=== PATIENT | female | born 1935 | race Caucasian/White ===

== ENCOUNTER → 2017-10-05 09:14 | Outpatient (CLI) | payer MEDICARE, OTHER, SELFPAY ==
--- NOTE | 2017-10-05 09:18 | MR_ITS ---
MR lumbar spine wo con, MR 3-d myelogram/MRCP HISTORY: Low back pain, right-sided leg pain, buttock pain on the right and groin pain ITS.REASON: ACUTE RIGHT-SIDED LOW BACK PAIN, WITH RIGHT SIDE SCIATICA ORDERING PHYSICIAN: Moncho Mims MD PATIENT AGE: 82 years Comparison: None TECHNIQUE: Standard multiplanar multiecho sequences are performed without contrast. 3-D MIP and myelographic images are also rendered and reviewed FINDINGS: The spinal cord ends at the T12-L1 level. A T1 and T2 hyperintense lesion is present involving the T12 vertebral body consistent with an incidental hemangioma. T12-L1: Unremarkable. L1-L2: Degenerative disc disease with minimal concentric bulging disc and mild facet and ligamentum flavum hypertrophy with mild bilateral foraminal narrowing. L2-L3: Bulging disc with moderate facet and ligamentum flavum hypertrophy with moderate bilateral lateral recess narrowing and moderate bilateral foraminal narrowing. Type II endplate changes. L3-L4: Degenerative disc disease with mild concentric bulging disc with mild to moderate facet and ligamentum flavum hypertrophy and mild bilateral lateral recess and foraminal narrowing. L4-5: There is a moderate sized right paracentral disc herniation with superior extrusion of the disc. The superior extruded portion of the disc measures 2 cm and lies along the posterior right paracentral aspect of the L4 vertebral body. There is moderate compression upon the L4 nerve root as well as compression upon the right L5 nerve root with moderate to severe right-sided foraminal narrowing. There is associated bulging disc at this level with mild facet and ligamentum hypertrophy L5-S1: Mild concentric bulging disc along with mild facet and ligamentum hypertrophy. Incidental note is a 2.3 cm cystic lesion in the right hepatic lobe IMPRESSION: 1. Moderate-sized right paracentral disc herniation with superior extrusion at L4-L5 compressing the right L4 and L5 nerve roots 2. Multilevel degenerative disc disease with bulging disc along with facet and ligamentum hypertrophy as detailed above. Please see above for detailed description at each level
== END ==
PROVIDERS: Family Provider Family Medicine; PCP Family Medicine; Visit Provider Family Medicine
DX: M54.41 Lumbago with sciatica, right side (principal)
CPT/HCPCS: 72148; 76376

== ENCOUNTER → 2017-11-20 08:52 | Outpatient (POV) | payer MEDICARE, OTHER, SELFPAY ==
[2017-11-20 09:19] VITALS: BP 158/75; PULSE 82; RESP 18; O2SAT 98
--- NOTE | 2017-11-20 12:07 | HMH.PMCON ---
Assessment and Plan (1) Degenerative disc disease Current visit: Yes Status: Chronic Qualifiers: Spinal region: lumbar Qualified Code(s): M51.36 - Other intervertebral disc degeneration, lumbar region Category: Medical - Assessment and plan all Dx Assessment and Plan for all problems:: I discussed with the patient her options. Patient would like to finish physical therapy before deciding her next step. I believe that this is meza. I discussed the patient that if she wants to have an epidural injection she would need to come off of her blood thinner. Patient is going to call the office and let us know how she would like to proceed with her care. This note was dictated using voice recognition software and may contain errors or omissions HPI - Data of Consult Consult date: 11/20/17 Requesting Physician: Maribel Galindo APRN Primary Care Provider: Moncho Mims MD Family Provider: Moncho Mims MD - Consult Narrative Reason for consult: Back pain History of present illness: Ms. Silva is a 82 year old female who presents today for consultation in regards to back pain and right sciatic nerve pain. Patient states that all activity increases her pain will physical therapy heat and ibuprofen decrease it. Patient is currently in physical therapy program and states it is helping much. Patient rates her pain a 7 out of 10. Patient was lifting and had sudden onset of pain. MRI does show disc bulge and herniation along with some nerve impingement. Patient has not been seen by neurosurgeon. Patient and I had a discussion in regards to our options as far as treatment. Patient and I discussed referral to neurosurgeon along with potential epidural steroid injections. CC: Maribel Galindo APRN [facility] History I have reviewed the patient's past medical history: Yes Medical History: Denies:: Diabetes Mellitus Type 2 Other Medical History: Reports: Arthritis Laterality Cases: Left: Arthroscopy Knee Other Surgeries: Yes: Hysterectomy-Total - *Social History Educational Level: Completed College Smoking Status: Never smoker Alcohol Intake: never Occupational Status: retired Housing: house Household Members: children - Psychiatric History Expresses thoughts of harming self/others: None Suicide Plan Description: No Plan *Family Hx:: Unable to obtain Review of Systems - Review of Systems ROS General: no recent weight change, no fever, no sleep disturbances Respiratory: no cough, no shortness of air, no recurring pulmonary infections Cardiovascular/Peripheral Vascular: No chest pain, No palpitations, no edema, no shortness of breath. Gastrointestinal: no incontinence, normal bowel movements reported Genitourinary: no incontinence Musculoskeletal: Back pain, leg pain Psychiatric: normal mood/ affect Neurological: [denies weakness in extremities], [denies balance issues] Meds Home Medications Medication Instructions Recorded Confirmed Type Aspirin [Aspirin 81mg chewable 81 mg PO DAILY 09/26/17 09/26/17 History tab] Atorvastatin Calcium [Atorvastatin 40 mg PO HS 09/26/17 09/26/17 History 40mg Tab] Citalopram Hydrobromide 20 mg PO DAILY 09/26/17 09/26/17 History [Citalopram HBr] Gabapentin [Gabapentin 300mg Cap] 300 mg PO TID 09/26/17 09/26/17 History Rivaroxaban [Xarelto 10mg tablet] 20 mg PO HS 09/26/17 09/26/17 History dilTIAZem HCl [Diltiazem 240mg 240 mg PO DAILY 09/26/17 09/26/17 History 24Hr ER Cap] hydroCHLOROthiazide [HCTZ 12.5mg 12.5 mg PO DAILY 09/26/17 09/26/17 History cap] Allergies Allergy/AdvReac Type Severity Reaction Status Date / Time [facility]su[facility]atin [[facility] Allergy Unknown Verified 09/26/17 13:17 Objective Vital signs: Pulse Resp BP Pulse Ox 82 18 158/75 98 11/20/17 09:19 11/20/17 09:19 11/20/17 09:19 11/20/17 09:19 Narrative: Physical Exam General: Alert and oriented x3, no acute
--- NOTE | 2017-11-20 12:10 | P.CONS_ITS ---
Assessment and Plan (1) Degenerative disc disease Current visit: Yes Status: Chronic Qualifiers: Spinal region: lumbar Qualified Code(s): M51.36 - Other intervertebral disc degeneration, lumbar region Category: Medical - Assessment and plan all Dx Assessment and Plan for all problems:: I discussed with the patient her options. Patient would like to finish physical therapy before deciding her next step. I believe that this is meza. I discussed the patient that if she wants to have an epidural injection she would need to come off of her blood thinner. Patient is going to call the office and let us know how she would like to proceed with her care. This note was dictated using voice recognition software and may contain errors or omissions HPI - Data of Consult Consult date: 11/20/17 Requesting Physician: Maribel Galindo APRN Primary Care Provider: Moncho Mims MD Family Provider: Moncho Mims MD - Consult Narrative Reason for consult: Back pain History of present illness: Ms. Silva is a 82 year old female who presents today for consultation in regards to back pain and right sciatic nerve pain. Patient states that all activity increases her pain will physical therapy heat and ibuprofen decrease it. Patient is currently in physical therapy program and states it is helping much. Patient rates her pain a 7 out of 10. Patient was lifting and had sudden onset of pain. MRI does show disc bulge and herniation along with some nerve impingement. Patient has not been seen by neurosurgeon. Patient and I had a discussion in regards to our options as far as treatment. Patient and I discussed referral to neurosurgeon along with potential epidural steroid injections. CC: Maribel Galindo APRN [facility] History I have reviewed the patient's past medical history: Yes Medical History: Denies:: Diabetes Mellitus Type 2 Other Medical History: Reports: Arthritis Laterality Cases: Left: Arthroscopy Knee Other Surgeries: Yes: Hysterectomy-Total - *Social History Educational Level: Completed College Smoking Status: Never smoker Alcohol Intake: never Occupational Status: retired Housing: house Household Members: children - Psychiatric History Expresses thoughts of harming self/others: None Suicide Plan Description: No Plan *Family Hx:: Unable to obtain Review of Systems - Review of Systems ROS General: no recent weight change, no fever, no sleep disturbances Respiratory: no cough, no shortness of air, no recurring pulmonary infections Cardiovascular/Peripheral Vascular: No chest pain, No palpitations, no edema, no shortness of breath. Gastrointestinal: no incontinence, normal bowel movements reported Genitourinary: no incontinence Musculoskeletal: Back pain, leg pain Psychiatric: normal mood/ affect Neurological: [denies weakness in extremities], [denies balance issues] Meds Home Medications Medication Instructions Recorded Confirmed Type Aspirin [Aspirin 81mg chewable 81 mg PO DAILY 09/26/17 09/26/17 History tab] Atorvastatin Calcium [Atorvastatin 40 mg PO HS 09/26/17 09/26/17 History 40mg Tab] Citalopram Hydrobromide 20 mg PO DAILY 09/26/17 09/26/17 History [Citalopram HBr] Gabapentin [Gabapentin 300mg Cap] 300 mg PO TID 09/26/17 09/26/17 History Rivaroxaban [Xarelto 10mg tablet] 20 mg PO HS 09/26/17 09/26/17 History dilTIAZem HCl [Diltiaz
== END ==
PROVIDERS: Family Provider Family Medicine; PCP Family Medicine; Visit Provider Clinical Nurse Specialist Family Health
DX: M51.36 Other intervertebral disc degeneration, lumbar region (principal)
CPT/HCPCS: 99202

== ENCOUNTER 2018-12-12 06:36 | Observation (INO) ==
--- NOTE | 2018-12-12 07:04 | Emergency Department Note ---
ED Disposition Clinical Impression: Unstable angina pectoris Disposition: Admitted as Observation Condition on Discharge: Good Referrals: Moncho Mims MD [Primary Care Provider] - - Critical Care Critical Care Time: No Attestation: On 12/12/18, the high probability of a clinically significant, sudden or life threatening deterioration of the following system(s) required my full and direct attention, intervention and personal management. The time I documented below is in addition to time spent performing reported procedures but includes the following listed in this critical care notation. Medical Decision Making - Medical Records Medical records reviewed: Yes: I reviewed the patient's medical records. - Josh Inquiry Pt receiving controlled substance: No Vital Signs: 12/12/18 06:38 12/12/18 07:32 12/12/18 07:37 Temperature 98.2 F Temperature Source Oral Pulse Rate [Right Radial] 85 89 83 Respiratory Rate 22 Blood Pressure [Right Arm] 156/82 H 151/65 H 133/63 Blood Pressure Mean [Right Arm] 106 93 86 Blood Pressure Source [Right Arm] Automatic Cuff Blood Pressure Position [Right Arm] Sitting Sitting 02 Sat by Pulse Oximetry 97 97 Oxygen Delivery Method Room Air Room Air 12/12/18 09:30 Temperature Temperature Source Pulse Rate [Right Radial] 84 Respiratory Rate 20 Blood Pressure [Right Arm] 156/73 H Blood Pressure Mean [Right Arm] 100 Blood Pressure Source [Right Arm] Automatic Cuff Blood Pressure Position [Right Arm] Supine 02 Sat by Pulse Oximetry 98 Oxygen Delivery Method Room Air - Lab Data Lab results reviewed: Yes: I reviewed the patient's lab results. Lab Results 12/12/18 06:40: WBC 9.1, RBC 4.36, Hgb 12.6, Hct 40.2, MCV 92.2, MCH 28.8, MCHC 31.3 L, RDW 13.9, Plt Count 398, MPV 7.3 L, Neut % (Auto) 63.3, Lymph % (Auto) 31.0, [place] % (Auto) 5.0, Eos % (Auto) 0.5, Baso % (Auto) 0.2, Neut # (Auto) 5.8, Lymph # (Auto) 2.8, [place] # (Auto) 0.5, Eos # (Auto) 0.1, Baso # (Auto) 0.0 12/12/18 06:40: Sodium 131 L, Potassium 3.8, Chloride 94 L, Carbon Dioxide 26, Anion Gap 14.8, BUN 11, Creatinine 1.14 H, Estimated Creat Clear 43, Estimated GFR 45 L, Est GFR ( Amer) 55 L, Glucose 117 H, Calcium 9.7, Troponin I < 0.02 Result diagrams: 12/12/18 06:40 12/12/18 06:40 Orders (Tests/Meds): ED MEDICATIONS Generic Name Dose Route Start Last Admin Trade Name Freq PRN Reason Stop Dose Admin Nitroglycerin 0.4 mg 12/12/18 07:34 12/12/18 07:38 Nitrostat 0.4mg Sl Tablet SL 01/11/19 07:33 0.4 mg Q5MINP PRN Administration Chest Pain Discontinued Medications Generic Name Dose Route Start Last Admin Trade Name Freq PRN Reason Stop Dose Admin Aspirin 324 mg 12/12/18 07:01 12/12/18 07:03 Aspirin 81mg Chewable Tablet PO 12/12/18 07:02 324 mg ONCE ONE Administration Ondansetron HCl 4 mg 12/12/18 08:56 12/12/18 08:57 Zofran 4mg/2ml Vial IV 12/12/18 08:57 4 mg ONCE ONE Administration - Radiology Data #1 Image(s): Chest Image Reviewed: Yes I reviewed the patient's radiology image Preliminary Findings: Normal/NAD - ECG Data Tracing #1 Normal Sinus Rhythm: Yes Ischemic changes: non-specific ST-T wave changes - Physician Consults Physician Consulted: germain Reason -: Admission Additional Consult: abhijit Reason -: Pt condition Chest Pain HPI - General Chief Complaint: Chest Pain Stated Complaint: CP Time Seen by Provider: 12/12/18 06:45 Mode of Arrival: Ambulatory Source of Information: Patient, Medical Record Limitations: No Limitations Description of Symptoms (Recalled from ER Triage Doc. by RN): PT C/O A BURNING IN HER LT CHEST THAT EXTENDS INTO HER LT UPPER ARM THAT WOKE HER UP AT 0500. PT ADVISES THAT SHE HAS HAD A FEW EPISODES SIMILAR TO THIS LATELY AND THAT SHE BELIEVES THEY MAY BE ANXIETY RELATED BUT SHE WANTED TO GET CHECKED OUT TO BE CERTAIN. - History of Present Illness HPI narrative: onset of lt ant chest pain this am - burning quality with rad to lt upper ext MD complaint: chest pain indicative of cardiac Onset (ago): hour(s) Duration: intermittent Activity at onset: during rest Pain location: left chest Severity: moderate Quality: other (burning) Associated symptoms: nausea Treatments prior to or on arrival for Cardiac Chest Pain: none - KASSIDY Score for Non-Stemi Age of Patient: 80-89 years old Heart Rate: 70-89 bpm Systolic Blood Pressure: 140-159 mmHg Serum Creatinine: 0.80-1.19 mg/dl CHF [place] Class: I-No CHF Other Risk Factors: None Non-Stemi Risk Score: 131 - Related Data On Oral Contraceptives: No Home Medications Medication Instructions Recorded Confirmed Atorvastatin Calcium [Atorvastatin 40 mg PO HS 09/26/17 12/12/18 40mg Tab] Citalopram Hydrobromide 40 mg PO DAILY 09/26/17 12/12/18 [Citalopram HBr] Gabapentin [Gabapentin 300mg Cap] 300 mg PO TID 09/26/17 12/12/18 Rivaroxaban [Xarelto 10mg tablet] 20 mg PO HS 09/26/17 12/12/18 dilTIAZem HCl [Diltiazem 240mg 240 mg PO DAILY 09/26/17 12/12/18 24Hr ER Cap] hydroCHLOROthiazide [HCTZ 12.5mg 12.5 mg PO DAILY 09/26/17 12/12/18 cap] Acetaminophen [Tylenol] 325 mg PO DAILY 12/19/17 12/12/18 Alpha Lipoic Acid 200 mg PO DAILY 12/19/17 12/12/18 B Complex C 11/Calcium/Dha/Q10 1 each PO DAILY 12/19/17 12/12/18 [Brain Goboh-Ckd-Gr Q10 Tablet] Cholecalciferol (Vitamin D3) 2,000 unit PO DAILY 12/19/17 12/12/18 [Vitamin D3] Benzonatate [Tessalon [place]le 100mg 100 mg PO TIDP PRN 12/24/17 12/12/18 Cap] Allergies Allergy/AdvReac Type Severity Reaction Status Date / Time rosuvastatin [From [facility]] Allergy Unknown Verified 12/24/17 12:11 [facility] History - Hepatitis A Screen Drug use history?: No High risk sexual behaviors?: No History of sexually transmitted infection?: No Currently employed?: No Childcare worker?: No Do you have indoor plumbing?: Yes Do you have electricity?: Yes Attestation statement:: This patient has been screened for Hepatitis A risk factors. I have reviewed the patient's past medical history: Yes Medical History: Reports:: Hyperlipidemia, Hypertension Denies:: Diabetes Mellitus Type 1, Diabetes Mellitus Type 2, Internal Pacemaker, Lung Disease, Seizures Other Medical History: Reports: Arthritis Laterality Cases: Left: Arthroscopy Knee Other Surgeries: Yes: Cardiac Catheterization, Hysterectomy-Total. No: Pacemaker - Social History Smoking Status: Never smoker Alcohol Intake: never Occupational Status: retired Housing: house Household Members: children Family Hx:: Unable to obtain ROS Obtained: Yes All systems reviewed & no additional complaints - Constitutional Constitutional: Denies fever(s) - Eyes Eyes: Denies change in vision - ENT Ears, Nose, Mouth, and Throat: Denies sore throat - Cardiovascular Cardiovascular: Reports chest pain, Denies dyspnea - Respiratory Respiratory: No cough - Gastrointestinal Gastrointestingal: Denies: abdominal pain - Genitourinary Female Genitourinary: Denies hematuria - Musculoskeletal Musculoskeletal: Denies joint pain - Integumentary/Breasts Skin/Breast: Denies rash - Neurologic Neurologic: Denies seizure-like activity Physical Exam - General General appearance: alert - Head Head exam: normocephalic - Eye Eye exam: Present: PERRL, EOMI. Absent: scleral icterus - ENT ENT exam: Present: mucous membranes dry - Neck Neck exam: Present: trachea midline - Respiratory Respiratory exam: Present: normal lung sounds bilaterally. Absent: respiratory distress - Cardiovascular Cardiovascular exam: Present: regular rate, systolic murmur, +S4 - Abdominal Exam Abdominal exam: Present: soft - Extremities Exam Extremities exam: Present: full ROM. Absent: calf tenderness - Neurological Exam Neurological exam: Present: alert, oriented X3, CN II-XII intact - Psychiatric Psychiatric exam: Present: normal affect - Skin Skin exam: Absent: rash
[2018-12-12 07:16] LABS: Basophils % 0.2 % (0.1-2.0); Eosinophils # 0.1 K/mm3 (0.0-0.4); Eosinophils % 0.5 % (0.1-12.0); Hematocrit 40.2 % (37.0-47.0); Hemoglobin 12.6 g/dL (12.2-16.2); Lymphocytes # 2.8 K/mm3 (0.7-4.5); Mean Corpuscular HGB Conc 31.3 g/dL (31.8-35.4); Mean Corpuscular Volume 92.2 fl (81-99); Mean Platelet Volume 7.3 fl (7.4-10.4); Monocytes # 0.5 K/mm3 (0.1-1.0); Neutrophils # 5.8 K/mm3 (1.8-7.8); Neutrophils % 63.3 % (37.0-80.0); Platelet Count 398 K/mm3 (142-424); Red Blood Count 4.36 M/mm3 (4.20-5.40); Red Cell Distribution Width 13.9 % (11.5-17.5); White Blood Count 9.1 K/mm3 (4.8-10.8)
[2018-12-12 07:23] LABS: Anion Gap 14.8 mEq/L (5-15); Blood Urea Nitrogen 11 mg/dL (7-18); Calcium 9.7 mg/dL (8.5-10.1); Carbon Dioxide 26 mmol/L (21.0-32.0); Chloride 94 mmol/L (98-107); Glucose 117 mg/dL (74-106); Sodium 131 mmol/L (136-145)
--- NOTE | 2018-12-12 08:45 | Consult Report ---
History of Present Illness Consult date: 12/12/18 Requesting physician: Moncho Mims Consult reason: chest pain Chief complaint: chest pain Additional Medical History:: 1. Hypertension A. Echo, 03/2016, 2D 1. Left atrium is qualitatively mildly enlarged, left ventricle is normal size, there is mild concentric left ventricular hypertrophy present, visually estimated ejection fraction 55% with no obvious regional wall motion ab normality. 2. The right-sided chambers are normal size and contractility. 3. The aortic valve is minimally thickened and calcified leaflet continue to display good mobility there is no aortic stenosis. 4. The mitral valve has mitral calcification there is no mitral stenosis. 5. The tricuspid valve restructure normal. 6. The pulmonic valve not well visualized. 7. No significant pericardial effusion noted. DOPPLER INTERROGATION: 1. The aortic outflow velocities within normal range, there is no aortic stenosis, there is mild aortic insufficiency present. 2. The mitral inflow velocity within normal range, there is no mitral stenosis, there is mild mitral regurgitation. 3. There is mild tricuspid regurgitation noted, tricuspid regurgitant jet velocity insufficient for acquisition of the right ventricular systolic pressure. CONCLUSION: 1. Mildly enlarged left atrium, normal left ventricular size, mild concentric left ventricular hypertrophy, visually estimated ejection fraction 55% with no obvious regional wall motion abnormality. 2. Mild mitral aortic and tricuspid regurgitation 3. No significant pericardial effusion noted 2. Hyperlipidemia 3. Endometrial cancer status post hysterectomy with radiation therapy January 2016-March 2016 4. New-onset atrial fibrillation, 04/02/2016, spontaneous conversion to NSR on diltiazem gtt to PO A. Xarelto 5. Lower extremity neuropathy A. [place] [facility], 2018, 1. Moderate-sized right paracentral disc herniation with superior extrusion at L4-L5 compressing the right L4 and L5 nerve roots 2. Multilevel degenerative disc disease with bulging disc along with facet and ligamentum hypertrophy as detailed above. Please see above for detailed description at each level 6. coronary artery calcification noted on CT, 09/2017 A. [facility], 2010, [facility], no need for intervention at that time per patient, no records available for review History of present illness: 83-year-old white female seen in the ER for complaint of left-sided chest discomfort with radiation to the left arm. She describes the discomfort as a burning sensation that has been intermittently occurring over the last 2 months. It may last up to hours at a time and resolve spontaneously. She denies any exertional component to it and cannot think of any aggravating or alleviating f actors. She does associate some nausea with it but denies rochelle chest pain or pressure. She denies any diaphoretic symptoms or vomiting. She has recently been treated for UTI with sulfa drugs and states that she may not drinking of water with taking the pills. Patient does relate some indigestion discomfort with activity and resolves with rest. Patient did receive nitroglycerin in the ER with questionable improvement in symptoms but not resolution. Patient freely admits that she has difficulty remembering the circumstances surrounding the discomfort. This is the second time that the burning type sensation has awoken her from sleep. Due to the severity of the symptoms it prompted visit to the ER today for further evaluation. Initial troponin is normal EKG is sinus rhythm with nonspecific ST-T abnormalities inferiorly consistent with tracing from 2017 Echocardiogram this a.m., preliminary report shows preserved ejection fraction. Patient was last seen by cardiology in 2017 during an episode of atrial fibrillation with a rapid ventricular response which was new onset. She has maintained sinus rhythm on diltiazem and has continued on Xarelto therapy. [facility] History Medical History: Reports:: Hyperlipidemia, Hypertension Denies:: Diabetes Mellitus Type 1, Diabetes Mellitus Type 2, Internal Pacemaker, Lung Disease, Seizures *Have you ever received a pneumonia vaccine?: No *Have you received a flu vaccine this season?: No Other Medical History: Reports: Arthritis Laterality Cases: Left: Arthroscopy Knee Other Surgeries: Yes: Cardiac Catheterization, Hysterectomy-Total. No: Pacemaker - *Social History Smoking Status: Never smoker Alcohol Intake: never *Occupational Status:: retired Housing: house Household Members: children *Travel in the last 8 weeks: None Family Hx:: Unable to obtain Meds Home Medications Medication Instructions Recorded Confirmed Type Atorvastatin Calcium [Atorvastatin 40 mg PO HS 09/26/17 12/12/18 History 40mg Tab] Citalopram Hydrobromide 40 mg PO DAILY 09/26/17 12/12/18 History [Citalopram HBr] Gabapentin [Gabapentin 300mg Cap] 300 mg PO TID 09/26/17 12/12/18 History Rivaroxaban [Xarelto 10mg tablet] 20 mg PO HS 09/26/17 12/12/18 History dilTIAZem HCl [Diltiazem 240mg 240 mg PO DAILY 09/26/17 12/12/18 History 24Hr ER Cap] hydroCHLOROthiazide [HCTZ 12.5mg 12.5 mg PO DAILY 09/26/17 12/12/18 History cap] Acetaminophen [Tylenol] 325 mg PO DAILY 12/19/17 12/12/18 History Alpha Lipoic Acid 200 mg PO DAILY 12/19/17 12/12/18 History B Complex C 11/Calcium/Dha/Q10 1 each PO DAILY 12/19/17 12/12/18 History [Brain [place]-Kez-Ca Q10 Tablet] Cholecalciferol (Vitamin D3) 2,000 unit PO DAILY 12/19/17 12/12/18 History [Vitamin D3] Benzonatate [Tessalon Perle 100mg 100 mg PO TIDP PRN 12/24/17 12/12/18 History Cap] Allergies Allergy/AdvReac Type Severity Reaction Status Date / Time rosuvastatin [From [facility]] Allergy Unknown Verified 12/24/17 12:11 Review of Systems - *Cardiovascular Reports chest pain, Reports shortness of breath with activity - *Respiratory Reports shortness of breath with activity - *Gastrointestinal Reports heartburn, Reports nausea, Denies abdominal pain, Denies vomiting - *Genitourinary Reports blood in urine - *Musculoskeletal Reports back pain, Denies joint pain - *Neurologic Denies dizziness, Denies seizure-like activity, Denies fainting Exam Vital signs and Labs for Last 24 Hours: Temp Pulse Resp BP Pulse Ox 98.2 F 83 22 133/63 97 12/12/18 06:38 12/12/18 07:37 12/12/18 06:38 12/12/18 07:37 12/12/18 07:32 Laboratory Results - last 24 hr 12/12/18 06:40: WBC 9.1, RBC 4.36, Hgb 12.6, Hct 40.2, MCV 92.2, MCH 28.8, MCHC 31.3 L, RDW 13.9, Plt Count 398, MPV 7.3 L, Neut % (Auto) 63.3, Lymph % (Auto) 31.0, [place] % (Auto) 5.0, Eos % (Auto) 0.5, Baso % (Auto) 0.2, Neut # (Auto) 5.8, Lymph # (Auto) 2.8, [place] # (Auto) 0.5, Eos # (Auto) 0.1, Baso # (Auto) 0.0 12/12/18 06:40: Sodium 131 L, Potassium 3.8, Chloride 94 L, Carbon Dioxide 26, Anion Gap 14.8, BUN 11, Creatinine 1.14 H, Estimated Creat Clear 43, Estimated GFR 45 L, Est GFR ( Amer) 55 L, Glucose 117 H, Calcium 9.7, Troponin I < 0.02 I & O for Last 24 hours: Intake & Output 12/09/18 12/10/18 12/11/18 12/12/18 11:59 11:59 11:59 11:59 Weight 162 lb - *Routine HEENT Exam Head: Present: normocephalic Eye: Present: EOMI, PERRL ENT: Present: mucous membranes moist - *Routine Neck Exam Present: supple. Absent: JVD, carotid bruit - *Routine Respiratory Exam Present: CTA bilaterally. Absent: accessory muscle use, rales, rhonchi, wheezes - *Routine Cardiovascular Exam Present: RRR. Absent: murmur, gallop, rubs - *Routine Abdominal Exam Present: soft. Absent: tenderness, distended, guarding - *Routine Extremities Exam Absent: edema, calf tenderness - *Routine Neurological Exam Present: alert, oriented X3, moving all extremities Assessment and Plan (1) Chest pain Current visit: Yes Status: Acute Category: Medical Code(s): R07.9 - Chest pain, unspecified (2) History of atrial fibrillation Current visit: Yes Status: Acute Category: Medical Code(s): Z86.79 - Personal history of other diseases of the circulatory system (3) Hypertension Current visit: Yes Status: Acute Category: Medical Code(s): I10 - Essential (primary) hypertension (4) Hyperlipidemia Current visit: Yes Status: Acute Category: Medical Code(s): E78.5 - Hyperlipidemia, unspecified (5) Coronary artery calcification seen on CAT scan Current visit: Yes Status: Acute Category: Medical Code(s): I25.10 - Atherosclerotic heart disease of [place] coronary artery without angina pectoris (6) CAD (coronary artery disease) Current visit: Yes Status: Acute Category: Medical Code(s): I25.10 - Atherosclerotic heart disease of [place] coronary artery without angina pectoris - Assessment and plan all Dx Assessment and Plan for all problems:: 1. Constellation of chest discomfort symptoms including left-sided burning sensation, left arm discomfort, nausea and indigestion in an advanced age patient with history of hypertension, hyperlipidemia and coronary artery calcification seen on CT scan in 2018 and non-flow limiting CAD on cardiac cath in 2009. Symptoms have been recurrent over the last 2 months and seem to be progressive in nature to the point of waking the patient from sleep (angina pectoris class IV). Recommend admission with plans to proceed with left heart catheterization later today. Patient and daughter agree to proceed in this fashion. Risks, benefits and procedure explained. 2. Continue home meds and add NTG paste.
--- NOTE | 2018-12-12 12:46 | History & Physical Report ---
*Admission Date: 12/12/18 <Izzy Hernández - 12/12/18 12:53> *Chief complaint: left sided breast and chest burning radiating to the left arm <Izzy Hernández - 12/12/18 12:53> *History of present illness: Ms. Silva is an 83-year-old white female who began having left breast and chest burning approx 2 months ago. She states she has the symptoms daily and they are intermittent. She attributed them to anxiety. Last night she woke up and had the same burning pain but it radiated t o her left arm. She decided to present to the ER for evaluation. She states the pain may last up to hours at a time and resolve spontaneously. She denies any exertional component and cannot think of any aggravating or alleviating factors. She does associate some nausea with it but denies rochelle chest pain or pressure. She denies any diaphoresis. She has recently been treated for multiple UTI's and has been on three different antibiotics. The most recent was bactrim. She thought the pain was just due to not drinking enough water when taking the pills. She has had some indigestion since taking antibiotics. She received nitroglycerin in the ER with some improvement in symptoms but not resolution. This is apparently the second time that the burning type sensation has awoken her from sleep. Cardiology was consulted for further evaluation. Her troponins have been normal and her EKG showed sinus rhythm with nonspecific ST-T abnormalities inferiorly. Cardiology ordered an echocardiogram and the preliminary report shows a preserved ejection fraction. They recommended admission and a heart cath. Of note, she has had loose stool for the past few weeks. She is worried it may be due to the antibiotics. <Izzy Hernández - 12/12/18 12:53> [facility] History I have reviewed the patient's past medical history: Yes <Izzy Hernández 12/12/18 12:53> Medical History: Reports:: Atrial Fibrillation, Cancer (endometrial), Dementia, Hyperlipidemia, Hypertension, Renal Disease Denies:: Diabetes Mellitus Type 1, Diabetes Mellitus Type 2, Internal Pacemaker, Lung Disease, Seizures <Izzy Hernández - 12/12/18 12:53> *Have you ever received a pneumonia vaccine?: Yes <Izzy Hernández 12/12/18 12:53> *Have you received a flu vaccine this season?: Yes <Izzy Hernández 12/12/18 12:53> Other Medical History: Reports: Anemia, Arthritis, Cataracts, Glaucoma, Other (Neuropathy, osteopenia, colon polyps, lumbar disc disease) <Izzy Hernández 12/12/18 12:53> Laterality Cases: Left: Arthroscopy Knee, Carpal Tunnel Release <Izzy Hernández 12/12/18 12:53> Other Surgeries: Yes: Appendectomy, Cardiac Catheterization, Cholecystectomy, Colonoscopy, , Dilation and Curettage, Hernia Repair, Hysterectomy- Total, Other (cyst removed from right ovary, lysis of abdominal adhesions, left wrist). No: Pacemaker <Izzy Hernández 12/12/18 12:53> - *Social History Smoking Status: Never smoker <Izzy Hernández 12/12/18 12:53> Alcohol Intake: never <Izzy Hernández 12/12/18 12:53> *Occupational Status:: retired <Izzy Hernández 12/12/18 12:53> Housing: house <zIzy Hernández 12/12/18 12:53> Household Members: children <Izzy Hernández 12/12/18 12:53> *Travel in the last 8 weeks: None <Izyz Hernández 12/12/18 12:53> Family Hx:: Cancer (cervical/uterine), Coronary Artery Disease, Heart Attack <Izzy Hernández 12/12/18 12:53> Review of Systems - Constitutional Denies fatigue, Denies fever(s), Denies weakness <Izzy Hernández 12/12/18 12:53> - Eyes Denies blurry vision, Denies double vision <Izzy Hernández 12/12/18 12:53> - ENT Reports nasal congestion, Denies sore throat <Izzy Hernández 12/12/18 12:53> - *Cardiovascular Reports chest pain, Denies shortness of breath, Denies leg swelling, Denies rapid, pounding, or irregular heartbeat <Izzy Hernández 12/12/18 12:53> - *Respiratory Denies cough, Denies shortness of breath <Izzy Hernández 12/12/18 12:53> - *Gastrointestinal Reports loose stools, Reports nausea, Denies abdominal pain, Denies vomiting <Izzy Hernández - 12/12/18 12:53> - *Genitourinary Denies difficulty urinating, Denies painful urination <Izzy Hernández - 12/12/18 12:53> - *Musculoskeletal Reports joint pain (left arm), Denies muscle weakness <Izzy Hernández - 12/12/18 12:53> - *Neurologic Reports headache(s), Denies dizziness, Denies seizure-like activity, Denies fainting, Denies weakness <Izzy Hernández - 12/12/18 12:53> Meds Home Medications Medication Instructions Recorded Confirmed Type Atorvastatin Calcium [Atorvastatin 40 mg PO HS 09/26/17 12/12/18 History 40mg Tab] Citalopram Hydrobromide 40 mg PO DAILY 09/26/17 12/12/18 History [Citalopram HBr] Gabapentin [Gabapentin 300mg Cap] 300 mg PO TID 09/26/17 12/12/18 History Rivaroxaban [Xarelto 10mg tablet] 20 mg PO HS 09/26/17 12/12/18 History dilTIAZem HCl [Diltiazem 240mg 240 mg PO DAILY 09/26/17 12/12/18 History 24Hr ER Cap] hydroCHLOROthiazide [HCTZ 12.5mg 12.5 mg PO DAILY 09/26/17 12/12/18 History cap] Acetaminophen [Tylenol] 325 mg PO DAILY 12/19/17 12/12/18 History Alpha Lipoic Acid 200 mg PO DAILY 12/19/17 12/12/18 History B Complex C 11/Calcium/Dha/Q10 1 each PO DAILY 12/19/17 12/12/18 History [Brain Pfroq-Gwd-Yu Q10 Tablet] Cholecalciferol (Vitamin D3) 2,000 unit PO DAILY 12/19/17 12/12/18 History [Vitamin D3] Benzonatate [Tessalon Perle 100mg 100 mg PO TIDP PRN 12/24/17 12/12/18 History Cap] <Elise Mimsian - 12/12/18 13:04> Allergies Allergy/AdvReac Type Severity Reaction Status Date / Time rosuvastatin [From [facility]] Allergy Unknown Verified 10/29/18 12:11 <Moncho Mims - 12/12/18 13:04> Exam Vital signs and Labs for Last 24 Hours: Temp Pulse Resp BP Pulse Ox 97.9 F 89 17 158/76 H 95 12/12/18 10:47 12/12/18 10:47 12/12/18 10:47 12/12/18 10:47 12/12/18 10:47 Laboratory Results - last 24 hr 12/12/18 06:40: WBC 9.1, RBC 4.36, Hgb 12.6, Hct 40.2, MCV 92.2, MCH 28.8, MCHC 31.3 L, RDW 13.9, Plt Count 398, MPV 7.3 L, Neut % (Auto) 63.3, Lymph % (Auto) 31.0, [place] % (Auto) 5.0, Eos % (Auto) 0.5, Baso % (Auto) 0.2, Neut # (Auto) 5.8, Lymph # (Auto) 2.8, [place] # (Auto) 0.5, Eos # (Auto) 0.1, Baso # (Auto) 0.0 12/12/18 06:40: Sodium 131 L, Potassium 3.8, Chloride 94 L, Carbon Dioxide 26, Anion Gap 14.8, BUN 11, Creatinine 1.14 H, Estimated Creat Clear 43, Estimated GFR 45 L, Est GFR ( Amer) 55 L, Glucose 117 H, Calcium 9.7, Troponin I < 0.02 <Moncho Mims - 12/12/18 13:04> Temp Pulse Resp BP Pulse Ox 97.9 F 89 17 158/76 H 95 12/12/18 10:47 12/12/18 10:47 12/12/18 10:47 12/12/18 10:47 12/12/18 10:47 Laboratory Results - last 24 hr 12/12/18 06:40: WBC 9.1, RBC 4.36, Hgb 12.6, Hct 40.2, MCV 92.2, MCH 28.8, MCHC 31.3 L, RDW 13.9, Plt Count 398, MPV 7.3 L, Neut % (Auto) 63.3, Lymph % (Auto) 31.0, [place] % (Auto) 5.0, Eos % (Auto) 0.5, Baso % (Auto) 0.2, Neut # (Auto) 5.8, Lymph # (Auto) 2.8, [place] # (Auto) 0.5, Eos # (Auto) 0.1, Baso # (Auto) 0.0 12/12/18 06:40: Sodium 131 L, Potassium 3.8, Chloride 94 L, Carbon Dioxide 26, Anion Gap 14.8, BUN 11, Creatinine 1.14 H, Estimated Creat Clear 43, Estimated GFR 45 L, Est GFR ( Amer) 55 L, Glucose 117 H, Calcium 9.7, Troponin I < 0.02 <EdgarIzzy - 12/12/18 12:53> I & O for Last 24 hours: Intake & Output 12/09/18 12/10/18 12/11/18 12/12/18 23:59 23:59 23:59 23:59 Intake Total 0 / 0 Balance 0 / 0 Weight 159 lb 9 oz <Moncho Mims - 12/12/18 13:04> Intake & Output 12/10/18 12/11/18 12/12/18 12/13/18 11:59 11:59 11:59 11:59 Weight 159 lb 9 oz <Jose JuanurielIzzy - 12/12/18 12:53> - Constitutional no acute distress <EdgarIzzy 12/12/18 12:53> - *Routine HEENT Exam Head: Present: normocephalic <EdgarIzzy - 12/12/18 12:53> Eye: Present: EOMI, PERRL <EdgarIzzy 12/12/18 12:53> ENT: Present: mucous membranes moist <EdgarIzzy - 12/12/18 12:53> - *Routine Neck Exam Present: supple. Absent: lymphadenopathy <EdgarIzzy - 12/12/18 12:53> - *Routine Respiratory Exam Present: CTA bilaterally <EdgarIzzy 12/12/18 12:53> - *Routine Cardiovascular Exam Present: RRR <EdgarIzzy 12/12/18 12:53> - *Routine Abdominal Exam Present: soft, normoactive bowel sounds. Absent: tenderness <EdgarIzzy 12/12/18 12:53> - *Routine Extremities Exam Absent: cyanosis, clubbing, edema <Izzy Hernández - 12/12/18 12:53> - *Routine Skin Exam Present: warm. Absent: rash <Izzy Hernández - 12/12/18 12:53> - *Routine Neurological Exam Present: alert, oriented X3 <Izzy Hernández - 12/12/18 12:53> H&P: Result - Impressions CXR - No change with no acute finding <Izzy Hernández 12/12/18 12:53> Assessment and Plan (1) Chest pain Current visit: Yes Status: Acute Category: Medical Code(s): R07.9 - Chest pain, unspecified (2) History of atrial fibrillation Current visit: Yes Status: Acute Category: Medical Code(s): Z86.79 - Personal history of other diseases of the circulatory system (3) Hypertension Current visit: Yes Status: Acute Category: Medical Code(s): I10 - Essential (primary) hypertension (4) Hyperlipidemia Current visit: Yes Status: Acute Category: Medical Code(s): E78.5 - Hyperlipidemia, unspecified (5) Coronary artery calcification seen on CAT scan Current visit: Yes Status: Acute Category: Medical Code(s): I25.10 - Atherosclerotic heart disease of [place] coronary artery without angina pectoris (6) CAD (coronary artery disease) Current visit: Yes Status: Acute Category: Medical Code(s): I25.10 - Atherosclerotic heart disease of [place] coronary artery without angina pectoris (7) Diarrhea Current visit: Yes Status: Acute Category: Medical Code(s): R19.7 - Diarrhea, unspecified <Moncho Mims - 12/12/18 13:04> (1) Chest pain Current visit: Yes Status: Acute Category: Medical Code(s): R07.9 - Chest pain, unspecified (2) History of atrial fibrillation Current visit: Yes Status: Acute Category: Medical Code(s): Z86.79 - Personal history of other diseases of the circulatory system (3) Hypertension Current visit: Yes Status: Acute Category: Medical Code(s): I10 - Essential (primary) hypertension (4) Hyperlipidemia Current visit: Yes Status: Acute Category: Medical Code(s): E78.5 - Hyperlipidemia, unspecified (5) Coronary artery calcification seen on CAT scan Current visit: Yes Status: Acute Category: Medical Code(s): I25.10 - Atherosclerotic heart disease of [place] coronary artery without angina pectoris (6) CAD (coronary artery disease) Current visit: Yes Status: Acute Category: Medical Code(s): I25.10 - Atherosclerotic heart disease of [place] coronary artery without angina pectoris <Izzy Hernández - 12/12/18 12:37> - Assessment and plan all Dx Assessment and Plan for all problems:: Saw patient, agree with above note. <Moncho Mims - 12/12/18 13:04> Still awaiting official echo report. Patient will have a heart cath this afternoon. Will also get a diarrhea panel d/t her diarrhea. <Izzy Hernández - 12/12/18 12:53>
--- NOTE | 2018-12-12 14:14 | Cardiology Report ---
APPROVED REPORT EXAM: Comprehensive 2D, Doppler, and color-flow Echocardiogram Section Supervisor: Lorri Lozoya, RT(R) Ht: 5 ft 2 in Wt: 162lbs BSA: 1.75 BP: 135/84 mmHg Indications: CP, Murmur 2D Dimensions LVOT 2.10 cm (M/F) 1.5-2.5 M-Mode Dimensions RVDd 1.60 cm (0.9-2.6)LA Diam 3.70 cm (1.9-4.0) LVDd 4.90 cm (3.5-5.7)Ao Diam 2.60 cm (2.0-3.7) LVDs 3.30 cm (3.5-5.7)AV Cusp 2.00 cm (1.5-2.6) IVSd 0.80 cm (0.6-1.1)PWd 0.70 cm (0.6-1.1) EF (Teich) 61.00% FS 32.70% EDV (Teich) 113.00 mLESV (Teich) 44.10 mL LV Diastology E/A Ratio 0.8MED E' 7.51 (< 7 cm/sec) E'/MED E' Ratio12.20 (>14)LAT E' 7.90 (<10 cm/sec) E/LAT E' Ratio 11.60 (>14) Mitral Valve MV E Max Cal. 91.80 (40-130 cm/s)MV A Velocity 122.00 (40-130 cm/s) E/A Ratio 0.80 Left Ventricle Left atrium is mildly enlarged, left ventricle is normal size, mild concentric left ventricular hypertrophy, visually estimated ejection fraction 55% with no regional wall motion abnormality, grade 1 diastolic dysfunction seen with tissue Doppler evidence of raise left atrial pressure. Right Ventricle Right atrium and right ventricular normal size and contractility. Aortic Valve Aortic valve is thickened and calcified leaflet going to display good mobility. Mitral Valve Mitral valve has mild mitral calcification, there is no mitral stenosis, there is mild mitral regurgitation. Tricuspid Valve Tricuspid valve is grossly normal, there is mild tricuspid regurgitation. Tricuspid regurgitation jet velocity is inadequate for calculation of the right ventricular systolic pressure. Pulmonic Valve Pulmonic valve is poorly visualized. Great Vessels Aortic root is normal size. Pericardium No significant pericardial effusion noted. Conclusion 1. Mildly enlarged left atrium, normal left ventricular size, mild concentric left ventricular hypertrophy, visually estimated ejection fraction 55% with no regional wall motion abnormality, grade 1 diastolic dysfunction seen with tissue Doppler evidence of raise left atrial pressure. 2. Mild mitral and tricuspid regurgitation 3. No significant pericardial effusion noted. Electronically signed by : Evens Farrar, 12/12/2018 14:13:38
--- NOTE | 2018-12-12 18:13 | Progress Note ---
Internal Medicine - PN: Subj *Date: 12/12/18 *Time: 18:11 Interval history: Patient had left heart cath today which was basically normal, but did showed minimal non flow limiting CAD. She is anxious to go home. Exam Vital signs and Labs for Last 24 Hours: Temp Pulse Resp BP Pulse Ox 97.9 F 80 17 158/76 H 95 12/12/18 10:47 12/12/18 16:00 12/12/18 10:47 12/12/18 10:47 12/12/18 10:47 Laboratory Results - last 24 hr 12/12/18 06:40: WBC 9.1, RBC 4.36, Hgb 12.6, Hct 40.2, MCV 92.2, MCH 28.8, MCHC 31.3 L, RDW 13.9, Plt Count 398, MPV 7.3 L, Neut % (Auto) 63.3, Lymph % (Auto) 31.0, Bibb % (Auto) 5.0, Eos % (Auto) 0.5, Baso % (Auto) 0.2, Neut # (Auto) 5.8, Lymph # (Auto) 2.8, Bibb # (Auto) 0.5, Eos # (Auto) 0.1, Baso # (Auto) 0.0 12/12/18 06:40: Sodium 131 L, Potassium 3.8, Chloride 94 L, Carbon Dioxide 26, Anion Gap 14.8, BUN 11, Creatinine 1.14 H, Estimated Creat Clear 43, Estimated GFR 45 L, Est GFR ( Amer) 55 L, Glucose 117 H, Calcium 9.7, Troponin I < 0.02 I & O for Last 24 hours: Intake & Output 12/09/18 12/10/18 12/11/18 12/12/18 23:59 23:59 23:59 23:59 Intake Total 240 / 240 Balance 240 / 240 Weight 159 lb 9 oz Assessment and Plan (1) Chest pain Current visit: Yes Status: Acute Qualifiers: Chest pain type: other chest pain Qualified Code(s): R07.89 - Other chest pain; R07.8 - Other chest pain Category: Medical Code(s): R07.9 - Chest pain, unspecified (2) History of atrial fibrillation Current visit: Yes Status: Acute Category: Medical Code(s): Z86.79 - Personal history of other diseases of the circulatory system (3) Hypertension Current visit: Yes Status: Acute Category: Medical Code(s): I10 - Essential (primary) hypertension (4) Hyperlipidemia Current visit: Yes Status: Acute Category: Medical Code(s): E78.5 - Hyperlipidemia, unspecified (5) Coronary artery calcification seen on CAT scan Current visit: Yes Status: Acute Category: Medical Code(s): I25.10 - Atherosclerotic heart disease of [place] coronary artery without angina pectoris (6) CAD (coronary artery disease) Current visit: Yes Status: Acute Category: Medical Code(s): I25.10 - Atherosclerotic heart disease of [place] coronary artery without angina pectoris (7) Diarrhea Current visit: Yes Status: Acute Category: Medical Code(s): R19.7 - Diarrhea, unspecified (8) Anxiety Current visit: Yes Status: Acute Category: Medical Code(s): F41.9 - Anxiety disorder, unspecified - Assessment and plan all Dx Assessment and Plan for all problems:: OK for discharge, f/u with Cardiology in 1 week.
--- NOTE | 2018-12-13 12:09 | Discharge Summary ---
General - General Admission date:: 12/12/18 Discharge date: 12/12/18 HPI HPI: Ms. Silva is an 83-year-old white female who began having left breast and chest burning approx 2 months ago. She states she has the symptoms daily and they are intermittent. She attributed them to anxiety. Last night she woke up and had the same burning pain but it radiated to her left arm. She decided to present to the ER for evaluation. She states the pain may last up to hours at a time and resolve spontaneously. She denies any exertional component and cannot think of any aggravating or alleviating factors. She does associate some nausea with it but denies rochelle chest pain or pressure. She denies any diaphoresis. She has recently been treated for multiple UTI's and has been on three different antibiotics. The most recent was bactrim. She thought the pain was just due to not drinking enough water when taking the pills. She has had some indigestion since taking antibiotics. She received nitroglycerin in the ER with some improvement in symptoms but not resolution. This is apparently the second time that the burning type sensation has awoken her from sleep. Cardiology was consulted for further evaluation. Her troponins have been normal and her EKG showed sinus rhythm with nonspecific ST-T abnormalities inferiorly. Cardiology ordered an echocardiogram and the preliminary report shows a preserved ejection fraction. They recommended admiss ion and a heart cath. Of note, she has had loose stool for the past few weeks. She is worried it may be due to the antibiotics. Hospital Course Hospital Course: The patient had an initial chest x-ray showing nothing acute. Her echo showed a preserved ejection fraction with grade 1 diastolic dysfunction. She had a cardiac catheterization and it showed mild nonflow limiting coronary artery disease with a normal EF. Cardiology recommended medical management. They felt she was stable for discharge home and the patient was anxious to go home as well. She was unable to get a diarrhea panel while in the hospital. She was discharged home and will follow-up with cardiology in 1 week. Objective Vital signs: Temp Pulse Resp BP Pulse Ox 97.7 F 85 17 139/74 97 12/12/18 20:30 12/12/18 20:30 12/12/18 20:30 12/12/18 20:30 12/12/18 20:30 Narrative: - Constitutional no acute distress - *Routine HEENT Exam Head: Present: normocephalic Eye: Present: EOMI, PERRL ENT: Present: mucous membranes moist - *Routine Neck Exam Present: supple. Absent: lymphadenopathy - *Routine Respiratory Exam Present: CTA bilaterally - *Routine Cardiovascular Exam Present: RRR - *Routine Abdominal Exam Present: soft, normoactive bowel sounds. Absent: tenderness - *Routine Extremities Exam Absent: cyanosis, clubbing, edema - *Routine Skin Exam Present: warm. Absent: rash - *Routine Neurological Exam Present: alert, oriented X3 DS: Diagnosis - Discharge Diagnosis (1) Chest pain Status: Acute (2) History of atrial fibrillation Status: Acute (3) Hypertension Status: Acute (4) Hyperlipidemia Status: Acute (5) Coronary artery calcification seen on CAT scan Status: Acute (6) CAD (coronary artery disease) Status: Acute (7) Diarrhea Status: Acute (8) Anxiety Status: Acute Discharge Plan - Patient Discharge Instructions ACTIVITY: Continue current activity DIET: continue same diet Patient Instructions: DI for Angina, DI for Cardiac Catheterization, DI for Surgical Site Infection - Follow up Plan Follow up with: Moncho Mims MD [Primary Care Provider] - (Patient already has appt. on 01/06/19) Fredi Jean MD [Staff Physician] - 1 week Disposition: Home, Self-Jail Medications: Home Medications Medication Instructions Recorded Confirmed Type Atorvastatin Calcium [Atorvastatin 40 mg PO HS 09/26/17 12/12/18 History 40mg Tab] Citalopram Hydrobromide 40 mg PO DAILY 09/26/17 12/12/18 History [Citalopram HBr] Gabapentin [Gabapentin 300mg Cap] 300 mg PO TID 09/26/17 12/12/18 History dilTIAZem HCl [Diltiazem 240mg 240 mg PO DAILY 09/26/17 12/12/18 History 24Hr ER Cap] hydroCHLOROthiazide [HCTZ 12.5mg 12.5 mg PO DAILY 09/26/17 12/12/18 History capsule] Alpha Lipoic Acid 200 mg PO DAILY 12/19/17 12/12/18 History B Complex C 11/Calcium/Dha/Q10 1 each PO DAILY 12/19/17 12/12/18 History [Brain Lokol-Udn-Ay Q10 Tablet] Cholecalciferol (Vitamin D3) 2,000 unit PO DAILY 12/19/17 12/12/18 History [Vitamin D3] Benzonatate [Tessalon Perle 100mg 100 mg PO TIDP PRN 12/24/17 12/12/18 History Cap*] Acetaminophen [Acetaminophen ER] 650 mg PO TIDP PRN 12/12/18 12/12/18 History Buspirone HCl [Buspirone 15 mg 30 mg PO BID 12/12/18 12/12/18 History Tablets] Gabapentin [Gabapentin 300mg Cap] 300 mg PO HS 12/12/18 12/12/18 History Rivaroxaban [Xarelto 20mg Tablet] 20 mg PO PM 12/12/18 12/12/18 History Sulfamethoxazole/Trimethoprim 1 each PO BID 12/12/18 12/12/18 History [Bactrim DS tablet] Prescriptions/Medication Reconciliation: Continued Atorvastatin Calcium [Atorvastatin 40mg Tab] 40 mg PO HS dilTIAZem HCl [Diltiazem 240mg 24Hr ER Cap] 240 mg PO DAILY Gabapentin [Gabapentin 300mg Cap] 300 mg PO TID Citalopram Hydrobromide [Citalopram HBr] 40 mg PO DAILY hydroCHLOROthiazide [HCTZ 12.5mg capsule] 12.5 mg PO DAILY B Complex C 11/Calcium/Dha/Q10 [Brain Cubsi-Tye-Cy Q10 Tablet] 1 each PO D AILY Cholecalciferol (Vitamin D3) [Vitamin D3] 2,000 unit PO DAILY Alpha Lipoic Acid 200 mg PO DAILY Rivaroxaban [Xarelto 20mg Tablet] 20 mg PO PM Sulfamethoxazole/Trimethoprim [Bactrim DS tablet] 1 each PO BID Buspirone HCl [Buspirone 15 mg Tablets] 30 mg PO BID Benzonatate [Tessalon Perle 100mg Cap*] 100 mg PO TIDP PRN PRN Reason: Cough Acetaminophen [Acetaminophen ER] 650 mg PO TIDP PRN PRN Reason: PAIN/FEVER Gabapentin [Gabapentin 300mg Cap] 300 mg PO HS - Problem Reconciliation Problems Reviewed?: Yes
--- NOTE | 2018-12-15 14:15 | Electrocardiograph Report ---
APPROVED REPORT Exam: Resting ECG HR:86 bpm ECG Measurements Heart Rate 86 AXES OK 156 P 76 QRSd 78 QRS 47 QT 392 T34 QTc 469 <Conclusion> Normal sinus rhythm Possible Left atrial enlargement Nonspecific ST and T wave abnormality Abnormal ECG Electronically signed by : Talat Fox, 12/15/2018 14:15:20
== END 2018-12-12 20:53 | disposition home or self-care (01) ==
LOC: ER 06:36 → 2ND 06:36
PROVIDERS: ADMIT Family Medicine; ATTEND Family Medicine
CPT/HCPCS: 71010; 71045; 80048; 84484; 85025; 93005; 93306; 93458; 96374; 99152; 99284; C1725; C1769; G0378; J1644; J2405; Q9967

== ENCOUNTER → 2019-01-01 13:36 | Outpatient (CLI) | payer MEDICARE, OTHER, SELFPAY ==
--- NOTE | 2019-01-01 | US_ITS ---
PROCEDURE: LEFT BREAST ULTRASOUND COMPLETE WITH AXILLA CLINICAL INDICATION: Dx Mammogram- Left breast- burning/tenderness the COMPARISON: MG SCREENING MAMMOGRAM from 10/27/2014 MG SCREENING MAMMOGRAM from 10/29/2015 MG SCREENING ANDRE MAMMOGRAM from 11/27/2016 MG SCREENING ANDRE MAMMOGRAM from 01/30/2018 US BREAST LT COMPLETE from 01/01/2019 TECHNIQUE: Standard images performed along with problem solving views and left breast ultrasound. The report is delayed waiting on outside films which were sent for comparison on the date of exam and have been loaded on the PACS system on 01/10/2019. FINDINGS: There is average fibroglandular tissue. There was an asymmetric area in the deep upper left breast overlying the pectoralis muscle which was present on 11/27/2016 and may represent a small lymph node. This area was difficult to image on the spot compression views due to the deep location. Area of asymmetry also noted in the mid and inferior aspect of the left breast and may be related to fibroglandular tissue. No malignant appearing mass or malignant-appearing microcalcification is evident. Left breast ultrasound: There is an oval hypoechoic area at 12 o'clock at 6 by 3 mm and may even represent fibroglandular tissue. At 1 o'clock there is a 4 mm cyst. There is some mild ductal dilatation in the retroareolar region. No suspicious nodules are evident. IMPRESSION: Probably benign findings. Areas of asymmetry of the left breast which are felt to be due to overlapping fibroglandular tissue. Hypoechoic 6 mm nodule at 12 o'clock on the ultrasound probably benign. Recommend six-month mammographic and sonographic follow-up. BI-RAD Category: 3 Probably Benign Finding Short Term Follow-up FOLLOW-UP: 6M 6Month Follow-up (A letter has been sent to the patient regarding results of the study.) Dictated by: Danish Bruno MD 01/07/2019 08:40 Electronically signed by Danish Bruno MD in [facility] 01/13/2019 09:35
--- NOTE | 2019-01-01 13:38 | MM_ITS ---
PROCEDURE: MM DIG MAMM DX UNILAT LT CAD CLINICAL INDICATION: Dx Mammogram- Left breast- burning/tenderness the COMPARISON: MG SCREENING MAMMOGRAM from 10/27/2014 MG SCREENING MAMMOGRAM from 10/29/2015 MG SCREENING ANDRE MAMMOGRAM from 11/27/2016 MG SCREENING ANDRE MAMMOGRAM from 01/30/2018 US BREAST LT COMPLETE from 01/01/2019 TECHNIQUE: Standard images performed along with problem solving views and left breast ultrasound. The report is delayed waiting on outside films which were sent for comparison on the date of exam and have been loaded on the PACS system on 01/10/2019. FINDINGS: There is average fibroglandular tissue. There was an asymmetric area in the deep upper left breast overlying the pectoralis muscle which was present on 11/27/2016 and may represent a small lymph node. This area was difficult to image on the spot compression views due to the deep location. Area of asymmetry also noted in the mid and inferior aspect of the left breast and may be related to fibroglandular tissue. No malignant appearing mass or malignant-appearing microcalcification is evident. Left breast ultrasound: There is an oval hypoechoic area at 12 o'clock at 6 by 3 mm and may even represent fibroglandular tissue. At 1 o'clock there is a 4 mm cyst. There is some mild ductal dilatation in the retroareolar region. No suspicious nodules are evident. IMPRESSION: Probably benign findings. Areas of asymmetry of the left breast which are felt to be due to overlapping fibroglandular tissue. Hypoechoic 6 mm nodule at 12 o'clock on the ultrasound probably benign. Recommend six-month mammographic and sonographic follow-up. BI-RAD Category: 3 Probably Benign Finding Short Term Follow-up FOLLOW-UP: 6M 6Month Follow-up (A letter has been sent to the patient regarding results of the study.) Dictated by: Danish Bruno MD 01/13/2019 09:29 Electronically signed by Danish Bruno MD in [facility] 01/13/2019 09:29
== END ==
PROVIDERS: PCP Family Medicine; Visit Provider Nurse Practitioner Obstetrics & Gynecology
DX: N64.4 Mastodynia (principal); N64.59 Other signs and symptoms in breast
CPT/HCPCS: 76641; 77065

== ENCOUNTER → 2019-02-12 12:39 | Outpatient (CLI) | payer MEDICARE, OTHER, SELFPAY ==
--- NOTE | 2019-02-12 12:44 | XR_ITS ---
PROCEDURE: XR CHEST 2V CLINICAL HISTORY: BRONCHITIS nonsmoker, cough COMPARISON: No exams were available for comparison FINDINGS: The cardiomediastinal silhouette and pulmonary vascularity are within normal limits. The lungs are clear without infiltrates, suspicious nodules, or pleural effusions. No acute bony abnormalities. There are mild multilevel degenerate changes midthoracic spine. IMPRESSION: No acute findings. Dictated by: Dr. Se Alvarenga MD 02/13/2019 08:[address] Se Alvarenga MD in [facility] 02/13/2019 08:50
== END ==
PROVIDERS: PCP Family Medicine; Visit Provider Physician Assistant
DX: J40 Bronchitis, not specified as acute or chronic (principal)
CPT/HCPCS: 71046

== ENCOUNTER 2019-02-21 14:53 | Observation (INO) ==
[2019-02-21 15:35] LABS: Basophils % 0.2 % (0.1-2.0); Eosinophils # 0.1 K/mm3 (0.0-0.4); Eosinophils % 0.6 % (0.1-12.0); Hematocrit 37.7 % (37.0-47.0); Hemoglobin 13.7 g/dL (12.2-16.2); Lymphocytes # 1.5 K/mm3 (0.7-4.5); Lymphocytes % 13.7 % (10-50); Mean Corpuscular HGB Conc 36.3 g/dL (31.8-35.4); Mean Corpuscular Volume 86.5 fl (81-99); Mean Platelet Volume 6.9 fl (7.4-10.4); Monocytes # 0.7 K/mm3 (0.1-1.0); Neutrophils # 8.7 K/mm3 (1.8-7.8); Neutrophils % 79.4 % (37.0-80.0); Platelet Count 388 K/mm3 (142-424); Red Blood Count 4.35 M/mm3 (4.20-5.40); Red Cell Distribution Width 12.9 % (11.5-17.5); White Blood Count 10.9 K/mm3 (4.8-10.8)
[2019-02-21 15:51] LABS: Alanine Aminotransferase 29 U/L (12-78); Albumin Level 4.1 gm/dL (3.4-5.0); Albumin/Globulin Ratio 1.3 (1.1-1.8); Alkaline Phosphatase 123 U/L (46-116); Anion Gap 16.8 mEq/L (5-15); Aspartate Amino Transferase 20 U/L (15-37); Bilirubin,Total 0.8 mg/dL (0.2-1.0); Blood Urea Nitrogen 14 mg/dL (7-18); Calcium 9.1 mg/dL (8.5-10.1); Carbon Dioxide 26 mmol/L (21.0-32.0); Chloride 93 mmol/L (98-107); Globulin 3.2 gm/dl (1.3-3.2); Glucose 133 mg/dL (74-106); Sodium 133 mmol/L (136-145); Total Protein,Serum 7.3 gm/dL (6.4-8.2)
--- NOTE | 2019-02-21 15:53 | Emergency Department Note ---
ED Disposition Clinical Impression: Palpitations, Hypokalemia, Atrial fibrillation with rapid ventricular response Disposition: Admitted As Inpatient Condition on Discharge: Serious Time of Disposition: 20:31 - Critical Care Critical Care Time: No Attestation: On 02/21/19, the high probability of a clinically significant, sudden or life threatening deterioration of the following system(s) required my full and direct attention, intervention and personal management. The time I documented below is in addition to time spent performing reported procedures but includes the following listed in this critical care notation. Medical Decision Making - Medical Records Medical records reviewed: Yes: I reviewed the patient's medical records. - Josh Inquiry Pt receiving controlled substance: No Vital Signs: 02/21/19 15:11 02/21/19 17:19 02/21/19 19:30 Temperature 98.3 F Temperature Source Oral Pulse Rate [Right Radial] 140 H 85 86 Respiratory Rate 22 18 Blood Pressure [Right Arm] 138/79 158/88 H 149/79 H Blood Pressure Mean [Right Arm] 98 111 102 Blood Pressure Source [Right Arm] Automatic Cuff Automatic Cuff Blood Pressure Position [Right Arm] Sitting Sitting 02 Sat by Pulse Oximetry 98 96 99 Oxygen Delivery Method Room Air Room Air - Lab Data Lab results reviewed: Yes: I reviewed the patient's lab results. Lab Results 02/21/19 15:20: WBC 10.9 H, RBC 4.35, Hgb 13.7, Hct 37.7, MCV 86.5, MCH 31.4 H, MCHC 36.3 H, RDW 12.9, Plt Count 388, MPV 6.9 L, Neut % (Auto) 79.4, Lymph % (Auto) 13.7, [place] % (Auto) 6.0, Eos % (Auto) 0.6, Baso % (Auto) 0.2, Neut # (Auto) 8.7 H, Lymph # (Auto) 1.5, [place] # (Auto) 0.7, Eos # (Auto) 0.1, Baso # (Auto) 0.0 02/21/19 15:20: Sodium 133 L, Potassium 2.8 L*, Chloride 93 L, Carbon Dioxide 26, Anion Gap 16.8 H, BUN 14, Creatinine 1.07 H, Estimated Creat Clear 43, Estimated GFR 49 L, Est GFR ( Amer) 59, Glucose 133 H, Calcium 9.1, Total Bilirubin 0.8, AST 20, ALT 29, Alkaline Phosphatase 123 H, Troponin I < 0.02, Total Protein 7.3, Albumin 4.1, Globulin 3.2, Albumin/Globulin Ratio 1.3 02/21/19 15:20: Magnesium 1.7 02/21/19 18:40: Troponin I < 0.02 Result diagrams: 02/21/19 15:20 02/21/19 15:20 Orders (Tests/Meds): ED MEDICATIONS Generic Name Dose Route Start Last Admin Trade Name Freq PRN Reason Stop Dose Admin Atorvastatin Calcium 40 mg 02/21/19 21:00 Lipitor 40mg Tablet PO 03/23/19 20:59 HS COREY Citalopram Hydrobromide 40 mg 02/22/19 09:00 Celexa 40mg Tablet PO 03/24/19 08:59 DAILY C[facility]Y Gabapentin 300 mg 02/21/19 21:00 Neurontin 300mg Capsule PO 03/23/19 20:59 TID C[facility]Y Hydrochlorothiazide 12.5 mg 02/22/19 09:00 Hctz 12.5mg Capsule PO 03/24/19 08:59 DAILY [facility] Diltiazem HCl 100 mg/ Sodium 100 mls @ 5 mls/hr 02/21/19 20:13 Chloride IV 03/23/19 19:14 .Q20H C[facility]Y Ketorolac Tromethamine 30 mg 02/21/19 20:13 Toradol 30mg/Ml Vial IV 02/26/19 20:12 Q6HP PRN Moderate Pain Non-Formulary Medication 30 mg 02/21/19 21:00 Buspirone Hcl [Buspirone 15 Mg Tablets] PO 03/23/19 20:59 BID [facility] Non-Formulary Medication 20 mg 02/22/19 18:00 Rivaroxaban [Xarelto 20mg Tablet*] PO 03/24/19 17:59 PM C[facility] Ondansetron HCl 4 mg 02/21/19 20:13 Zofran 4mg/2ml Vial IV 03/23/19 20:12 Q8HP PRN Nausea Discontinued Medications Generic Name Dose Route Start Last Admin Trade Name Freq PRN Reason Stop Dose Admin Diltiazem HCl 10 mg 02/21/19 18:59 02/21/19 19:03 Cardizem 25mg/5ml Vial IV 02/21/19 19:00 10 mg ONCE ONE Administration Diltiazem HCl 10 mg 02/21/19 19:00 02/21/19 19:07 Cardizem 100mg Adv IV 02/21/19 19:01 Not Given TITR ONE Potassium Chloride/Water 100 mls @ 50 mls/hr 02/21/19 18:16 02/21/19 19:02 Potassium Chloride 20meq/100ml Ivpb IV 02/21/19 20:15 50 mls/hr ONCE ONE Administration Diltiazem HCl 100 mg/ Sodium 100 mls @ 5 mls/hr 02/21/19 19:15 02/21/19 19:03 Chloride IV 03/23/19 19:14 5 mls/hr .Q20H C[facility]Y Administration Magnesium Oxide 400 mg 02/21/19 18:16 02/21/19 19:17 Mag-Ox 400mg Tab PO 02/21/19 18:17 400 mg ONCE ONE Administration Potassium Chloride 10 meq 02/21/19 18:14 02/21/19 19:24 Klor-Con 10meq Tablet PO 02/21/19 18:15 10 meq ONCE ONE Administration Potassium Chloride 20 meq 02/21/19 18:15 02/21/19 19:02 Klor-Con 20meq Tablet PO 02/21/19 18:16 20 meq ONCE ONE Administration ORDERS Category Date Time Status Urine Culture Stat Micro 02/21/19 19:30 Received - Radiology Data #1 Image(s): Chest Image Reviewed: Yes I reviewed the patient's radiology results, Yes I have reviewed radiologist's interpretation Preliminary Findings: Normal/NAD Patient: Yamilet Silva MR#: [id number] : 1935 Acct:[id number] Age/Sex: 83 / F ADM Date: 9 Loc: ER Attending Dr: Ordering Physician: Barrington Mejia MD Date of Service: 02/21/19 Procedure(s): XR chest 2V Accession Number(s): [id number] cc: Pepe Fuller MD; Moncho Mims MD~ PROCEDURE: XR CHEST 2V CLINICAL HISTORY: heart fluttering COMPARISON: CXR1VP XR chest portable from 09/26/2017 XR CHEST PORTABLE from 12/12/2018 XR CHEST 2V from 02/12/2019 FINDINGS: The cardiomediastinal silhouette and pulmonary vascularity are within normal limits. The lungs are clear without infiltrates, suspicious nodules, or pleural effusions. No acute bony abnormalities. IMPRESSION: No acute findings. Dictated by: Pepe Fuller 02/21/2019 16:48 Electronically signed by Pepe Fuller in [place] 02/21/2019 16:48 - CT Data CT Scan: Head Time Received: 16:[address] Reviewed: Yes: I have reviewed the patient's CT results, I have viewed the radiologist's interpretation Preliminary Findings: Normal/NAD Findings Narrative: Patient: Yamilet SilvaMR#: [id number] : 1935 Acct:[id number] Age/Sex: 83 / F ADM Date: 9 Loc: ER Attending Dr: Ordering Physician: Barrington Mejia MD Date of Service: 02/21/19 Procedure(s): CT head/brain wo con Accession Number(s): [id number] cc: Pepe Fuller MD; Barrington Mejia MD; Moncho Mims MD~ PROCEDURE: CT HEAD/BRAIN WO CON CLINICAL INDICATION: ANXIETY, CONFUSION COMPARISON: No exams were available for comparison TECHNIQUE: Axial images obtained. All CT scans at the facility use one or more dose reduction, viz: automated exposure control, ma/kV adjustment per patient size (including targeted exams where dose is matched to indication, i.e. head), or iterative reconstruction technique. FINDINGS: No midline shift, mass effect, intracranial hemorrhage, hydrocephalus, or extra-axial fluid collection is evident. There is mild generalized prominence of the sulci. Cortical areas and ventricles appear normal. There are some subtle periventricular white matter hypodensities adjacent to the frontal horns of the lateral ventricles bilaterally. The calvarium has an unremarkable appearance. No mastoid effusion. There is some mucosal thickening which is mild in the sphenoid and left maxillary sinus and moderate in the right maxillary sinus. IMPRESSION: No acute intracranial process. Mild generalized cortical atrophy. Nonspecific mild white matter findings suggest chronic microvascular ischemic change. Paranasal sinus disease. Dictated by: Pepe Fuller 02/21/2019 16:23 Electronically signed by Pepe Fuller in [place] 02/21/2019 16:23 General Adult HPI - General Chief complaint: Weakness Stated complaint: pulse is high and having cold sweats Time Seen by Provider: 02/21/19 15:17 Mode of Arrival: Wheelchair Limitations: No Limitations Description of Symptoms (Recalled from ER Triage Doc. by RN): PT C/O ELEVATED HR AND COLD SWEATS. PT REPORTS HX OF A.FIB. PT STATES THAT SHE HAS FELT ANXIOUS X1 WEEK AND THIS AFTERNOON, BEGAN FEELING WORSE. - History of Present Illness HPI narrative: 83-year-old female presents to the emergency department with sudden onset of palpitations. A. fib with RVR in the 140s but the patient converted back to sinus rhythm just as we were setting of the twelve-lead EKG. Patient has a history of atrial fibrillation. Onset (ago): hour(s) (2) Severity: moderate Consistency: constant Relieving factors: none Exacerbating factors: none Associated symptoms: malaise, weakness - Related Data Home Medications Medication Instructions Recorded Confirmed Atorvastatin Calcium [Atorvastatin 40 mg PO HS 09/26/17 02/21/19 40mg Tab] Gabapentin [Gabapentin 300mg Cap] 300 mg PO TID 09/26/17 02/21/19 dilTIAZem HCl [Diltiazem 240mg 240 mg PO DAILY 09/26/17 02/21/19 24Hr ER Cap] hydroCHLOROthiazide [HCTZ 12.5mg 12.5 mg PO DAILY 09/26/17 02/21/19 capsule] Acetaminophen [Acetaminophen ER] 650 mg PO TIDP PRN 12/12/18 02/21/19 Buspirone HCl [Buspirone 15 mg 30 mg PO BID 12/12/18 02/21/19 Tablets] Rivaroxaban [Xarelto 20mg Tablet*] 20 mg PO PM 12/12/18 02/21/19 citalopram 40 mg tablet 40 mg PO DAILY #90 tab 12/31/18 02/21/19 Allergies Allergy/AdvReac Type Severity Reaction Status Date / Time rosuvastatin [From [facility]] Allergy Unknown Verified 01/28/19 13:57 [facility] History - Hepatitis A Screen Drug use history?: No High risk sexual behaviors?: No History of sexually transmitted infection?: No Currently employed?: No Childcare worker?: No Do you have indoor plumbing?: Yes Do you have electricity?: Yes Attestation statement:: This patient has been screened for Hepatitis A risk factors. I have reviewed the patient's past medical history: Yes Medical History: Reports:: Atrial Fibrillation, Cancer, Dementia, Hyperlipidemia, Hypertension, Renal Disease Denies:: Diabetes Mellitus Type 1, Diabetes Mellitus Type 2, Internal Pacemaker, Lung Disease, Seizures Other Medical History: Reports: Anemia, Arthritis, Cataracts, Glaucoma, Other Laterality Cases: Left: Arthroscopy Knee, Carpal Tunnel Release Other Surgeries: Yes: Appendectomy, Cancer Surgery, Cardiac Catheterization, Cholecystectomy, Colonoscopy, , Dilation and Curettage, Hernia Repair, Hysterectomy-Total, Other (cyst removed from right ovary, lysis of abdominal adhesions, left wrist). No: Pacemaker Amputation: No Fractures: No - Social History Smoking Status: Never smoker Alcohol Intake: never Substance Use Type: denies use Occupational Status: retired Housing: house Household Members: children Family Hx:: Cancer, Coronary Artery Disease, Heart Attack Comment: Father-CAD, CHF ROS Obtained: Yes Systems reviewed as appropriate & no additional complaints - Constitutional Constitutional: Reports fatigue, Reports malaise, Reports weakness - Eyes Eyes: Reports system reviewed and no additional complaints, except as docu - ENT Ears, Nose, Mouth, and Throat: Reports system reviewed and no additional complaints, except as docu - Cardiovascular Cardiovascular: Reports palpitations - Respiratory Respiratory: Yes system reviewed and no additional complaints, except as docu - Gastrointestinal Gastrointestingal: Reports: system reviewed and no additional complaints, except as docu - Genitourinary Female Genitourinary: Reports system reviewed and no additional complaints, except as docu - Musculoskeletal Musculoskeletal: Reports system reviewed and no additional complaints, except as docu - Integumentary/Breasts Skin/Breast: Reports system reviewed and no additional complaints, except as docu - Neurologic Neurologic: Reports system reviewed and no additional complaints, except as docu - Endocrine Endocrine: Reports system reviewed and no additional complaints, except as docu - Hematologic/Lymphatic Henatologic/Lymphatic: Reports system reviewed and no additional complaints, except as docu - Allergic/Immunologic Allergic/Immunologic: Reports system reviewed and no additional complaints, e xcept as docu Physical Exam - General General appearance: alert, in no apparent distress - Head Head exam: atraumatic, normocephalic, normal inspection - Eye Eye exam: Present: normal appearance, PERRL, EOMI - ENT ENT exam: Present: normal exam, normal oropharynx, mucous membranes moist, normal external ear exam - Neck Neck exam: Present: normal inspection, full ROM, trachea midline. Absent: meningismus, lymphadenopathy - Chest Chest inspection: Present: normal inspection, symmetric chest wall rise. Absent: tenderness - Respiratory Respiratory exam: Present: normal lung sounds bilaterally. Absent: respiratory distress - Cardiovascular Cardiovascular exam: Present: regular rate, normal rhythm. Absent: JVD - Abdominal Exam Abdominal exam: Present: soft, normal bowel sounds. Absent: distention, tenderness, guarding - Extremities Exam Extremities exam: Present: normal inspection, full ROM, normal capillary refill. Absent: calf tenderness - Back Exam Back exam: Present: normal inspection. Absent: tenderness - Neurological Exam Neurological exam: Present: alert, oriented X3, CN II-XII intact, normal gait. Absent: motor sensory deficit - Psychiatric Psychiatric exam: Present: normal affect, normal mood - Skin Skin exam: Present: warm, dry, intact, normal color
[2019-02-21 19:35] LABS: Microscopic, Urine URINE MICROSCOPIC (MICROSCOPIC)
[2019-02-21 19:38] LABS: Appearance,Urine CLEAR (Clear); Bilirubin,Urine Negative (Negative); Blood, Urine Negative (Negative); Color,Urine YELLOW (Yellow); Glucose,Urine (UA) Negative (Negative); Ketones,Urine 1+ (Negative); Leukocyte Esterase,Urine 2+ (Negative); PH,Urine 7.5 (5.0-8.5); Protein,Urine Negative (Negative); Urobilinogen,Urine 0.2 EU/dl (0.2)
[2019-02-21 20:13] LABS: Amorphous Sediment,Urine Trace /lpf
[2019-02-22 05:24] LABS: Basophils % 0.3 % (0.1-2.0); Eosinophils # 0.1 K/mm3 (0.0-0.4); Eosinophils % 0.6 % (0.1-12.0); Hematocrit 37.6 % (37.0-47.0); Lymphocytes # 1.7 K/mm3 (0.7-4.5); Lymphocytes % 16.2 % (10-50); Mean Corpuscular HGB Conc 31.6 g/dL (31.8-35.4); Mean Corpuscular Volume 88.2 fl (81-99); Mean Platelet Volume 6.8 fl (7.4-10.4); Monocytes # 0.7 K/mm3 (0.1-1.0); Monocytes % 6.8 % (1.7-9.3); Neutrophils % 76.2 % (37.0-80.0); Platelet Count 358 K/mm3 (142-424); Red Blood Count 4.26 M/mm3 (4.20-5.40); Red Cell Distribution Width 13.1 % (11.5-17.5); White Blood Count 10.4 K/mm3 (4.8-10.8)
[2019-02-22 05:28] LABS: Hemoglobin 11.9 g/dL (12.2-16.2)
[2019-02-22 05:40] LABS: Albumin Level 3.4 gm/dL (3.4-5.0); Albumin/Globulin Ratio 1.2 (1.1-1.8); Anion Gap 11.3 mEq/L (5-15); Bilirubin,Total 0.6 mg/dL (0.2-1.0); Calcium 8.2 mg/dL (8.5-10.1); Chol/HDL Ratio 1.7 (1-3.5); Globulin 2.8 gm/dl (1.3-3.2); Total Protein,Serum 6.2 gm/dL (6.4-8.2)
--- NOTE | 2019-02-22 08:31 | History & Physical Report ---
*Admission Date: 02/21/19 *Chief complaint: Palpitations *History of present illness: 83 year old female with a history of atrial fibrillation presented to [facility] ER yesterday with a 1 day history of palpitations and rapid heart rate. She measured her heart rate in the 130's a couple of different times. Patient states she had been more anxious lately due to family visits during the [place] holiday season. She had stopped her Buspirone for a time due to perceived side effect of imbalance of gait but she had resumed it about a week ago and has not had gait problems. [facility] History Medical History: Reports:: Atrial Fibrillation, Cancer (Endometrosis.), Coronary Artery Disease (non flow limiting, left heart cath 2019), Dementia, Hyperlipidemia, Hypertension, Palpitations, Renal Disease Denies:: Diabetes Mellitus Type 1, Diabetes Mellitus Type 2, Internal Pacemaker, Lung Disease, MRSA, Seizures *Have you ever received a pneumonia vaccine?: Yes *Have you received a flu vaccine this season?: Yes Other Medical History: Reports: Anemia, Arthritis, Cataracts, Glaucoma, Other Laterality Cases: Left: Arthroscopy Knee, Carpal Tunnel Release, Bilateral: Cataract Other Surgeries: Yes: Appendectomy, Cancer Surgery, Cardiac Catheterization, Cholecystectomy, Colonoscopy, , Dilation and Curettage, Hernia Repair, Hysterectomy-Total, Other (cyst removed from right ovary, lysis of abdominal adhesions, left wrist). No: Pacemaker Amputation: No Fractures: No - *Social History Educational Level: Completed High School Smoking Status: Never smoker Alcohol Intake: never Substance Use Type: denies use *Occupational Status:: retired Housing: house Household Members: children *Travel in the last 8 weeks: None - Psychiatric History Pschychiatric History:: Reports:: Anxiety Family Hx:: Cancer, Coronary Artery Disease, Heart Attack Review of Systems - Constitutional Denies chills, Denies fever(s) - Eyes Denies change in vision - ENT Denies bleeding gums - *Cardiovascular Denies chest pain - *Respiratory Denies cough - *Gastrointestinal Denies abdominal pain, Denies bloating - *Genitourinary Denies difficulty urinating - *Musculoskeletal Denies joint pain - Integumentary/Breasts Denies rash - *Neurologic Reports weakness - Psychiatric Reports anxiety Meds Home Medications Medication Instructions Recorded Confirmed Type Atorvastatin Calcium [Atorvastatin 40 mg PO HS 09/26/17 02/21/19 History 40mg Tab] Gabapentin [Gabapentin 300mg Cap] 300 mg PO TID 09/26/17 02/21/19 History dilTIAZem HCl [Diltiazem 240mg 240 mg PO HS 09/26/17 02/21/19 History 24Hr ER Cap] hydroCHLOROthiazide [HCTZ 12.5mg 12.5 mg PO DAILY 09/26/17 02/21/19 History capsule] Acetaminophen [Acetaminophen ER] 650 mg PO TIDP PRN 12/12/18 02/21/19 History Buspirone HCl [Buspirone 15 mg 30 mg PO BID 12/12/18 02/21/19 History Tablets] Rivaroxaban [Xarelto 20mg Tablet*] 20 mg PO PM 12/12/18 02/21/19 History citalopram 40 mg tablet 40 mg PO DAILY #90 tab 12/31/18 02/21/19 History Multivitamin [One Daily] 1 each PO DAILY 02/21/19 02/21/19 History Allergies Allergy/AdvReac Type Severity Reaction Status Date / Time rosuvastatin [From CRESTOR] Allergy Unknown Verified 02/21/19 21:18 Exam Vital signs and Labs for Last 24 Hours: Temp Pulse Resp BP Pulse Ox 98.4 F 81 16 133/76 99 02/22/19 08:00 02/22/19 08:00 02/22/19 08:00 02/22/19 08:00 02/22/19 08:00 Laboratory Results - last 24 hr 02/21/19 15:20: WBC 10.9 H, RBC 4.35, Hgb 13.7, Hct 37.7, MCV 86.5, MCH 31.4 H, MCHC 36.3 H, RDW 12.9, Plt Count 388, MPV 6.9 L, Neut % (Auto) 79.4, Lymph % (Auto) 13.7, [place] % (Auto) 6.0, Eos % (Auto) 0.6, Baso % (Auto) 0.2, Neut # (Auto) 8.7 H, Lymph # (Auto) 1.5, [place] # (Auto) 0.7, Eos # (Auto) 0.1, Baso # (Auto) 0.0 02/21/19 15:20: Sodium 133 L, Potassium 2.8 L*, Chloride 93 L, Carbon Dioxide 26, Anion Gap 16.8 H, BUN 14, Creatinine 1.07 H, Estimated Creat Clear 43, Estimated GFR 49 L, Est GFR ( Amer) 59, Glucose 133 H, Calcium 9.1, Total Bilirubin 0.8, AST 20, ALT 29, Alkaline Phosphatase 123 H, Troponin I < 0.02, Total Protein 7.3, Albumin 4.1, Globulin 3.2, Albumin/Globulin Ratio 1.3 02/21/19 15:20: Magnesium 1.7 02/21/19 18:40: Troponin I < 0.02 02/21/19 19:30: Urine Color Yellow, Urine Appearance Clear, Urine pH 7.5, Ur Specific [place] 1.020, Urine Protein Negative, Urine Glucose (UA) Negative, Urine Ketones 1+, Urine Blood Negative, Urine Nitrate Negative, Urine Bilirubin Negative, Urine Urobilinogen 0.2, Ur Leukocyte Esterase 2+ A, Urine WBC 10-20, Amorphous Sediment Trace 02/22/19 05:00: WBC 10.4, RBC 4.26, Hgb 11.9 L D, Hct 37.6, MCV 88.2, MCH 27.9, MCHC 31.6 L, RDW 13.1, Plt Count 358, MPV 6.8 L, Neut % (Auto) 76.2, Lymph % (Auto) 16.2, [place] % (Auto) 6.8, Eos % (Auto) 0.6, Baso % (Auto) 0.3, Neut # (Auto) 8.0 H, Lymph # (Auto) 1.7, [place] # (Auto) 0.7, Eos # (Auto) 0.1, Baso # (Auto) 0.0 02/22/19 05:00: Sodium 135 L, Potassium 3.3 L, Chloride 100, Carbon Dioxide 27, Anion Gap 11.3, BUN 12, Creatinine 0.77 D, Estimated Creat Clear 47, Estimated GFR 71, Est GFR ( Amer) 86 D, Glucose 120 H, Calcium 8.2 L, Magnesium 1.8, Total Bilirubin 0.6, AST 13 L D, ALT 24, Alkaline Phosphatase 103, Total Protein 6.2 L, Albumin 3.4 D, Globulin 2.8, Albumin/Globulin Ratio 1.2, Triglycerides 36, Cholesterol 121 L, LDL Cholesterol 41, VLDL Cholesterol 7, HDL Cholesterol 73, Cholesterol/HDL Ratio 1.7 Vital Signs - 24 hr 02/21/19 15:11 02/21/19 17:19 02/21/19 19:30 Temperature 98.3 F Pulse Rate Pulse Rate [Right Radial] 140 H 85 86 Respiratory Rate 22 18 Blood Pressure Blood Pressure [Right Arm] 138/79 158/88 H 149/79 H 02 Sat by Pulse Oximetry 98 96 99 02/21/19 20:00 02/21/19 20:29 02/21/19 20:38 Temperature 98.6 F Pulse Rate 86 Pulse Rate [Right Radial] 85 Respiratory Rate 26 H Blood Pressure Blood Pressure [Right Arm] 155/89 H 02 Sat by Pulse Oximetry 98 98 02/21/19 20:40 02/21/19 22:00 02/21/19 23:02 Temperature 98.6 F Pulse Rate 85 131 H Pulse Rate [Right Radial] 85 Respiratory Rate 16 Blood Pressure 150/80 H Blood Pressure [Right Arm] 140/74 02 Sat by Pulse Oximetry 97 02/21/19 23:06 02/22/19 00:00 02/22/19 01:35 Temperature Pulse Rate 137 H 70 Pulse Rate [Right Radial] 73 Respiratory Rate Blood Pressure Blood Pressure [Right Arm] 133/65 02 Sat by Pulse Oximetry 98 84 L 02/22/19 02:00 02/22/19 03:46 02/22/19 04:00 Temperature Pulse Rate 74 Pulse Rate [Right Radial] 73 78 86 Respiratory Rate Blood Pressure Blood Pressure [Right Arm] 121/60 146/71 H 02 Sat by Pulse Oximetry 96 97 97 02/22/19 06:00 02/22/19 07:00 02/22/19 08:00 Temperature 98.4 F Pulse Rate Pulse Rate [Right Radial] 91 H 82 81 Respiratory Rate 14 16 Blood Pressure Blood Pressure [Right Arm] 143/59 H 141/76 H 133/76 02 Sat by Pulse Oximetry 98 100 99 I & O for Last 24 hours: Intake & Output 02/19/19 02/20/19 02/21/19 02/22/19 23:59 23:59 23:59 23:59 Intake Total 674 / 674 Balance 674 / 674 Weight 155 lb 5 oz 157 lb 9 oz - Constitutional no acute distress - *Routine HEENT Exam Head: Present: normocephalic Eye: Present: EOMI, PERRL ENT: Present: mucous membranes moist - *Routine Neck Exam Present: supple. Absent: lymphadenopathy - *Routine Respiratory Exam Present: CTA bilaterally - *Routine Cardiovascular Exam Present: RRR - *Routine Abdominal Exam Present: soft, normoactive bowel sounds. Absent: tenderness - *Routine Extremities Exam Absent: cyanosis, clubbing, edema - *Routine Skin Exam Present: warm. Absent: rash - *Routine Neurological Exam Present: alert, oriented X3 - Routine Psychiatric Exam Present: normal affect, cooperative. Absent: suicidal ideation, auditory hallucinations, visual hallucinations Assessment and Plan (1) Atrial fibrillation with rapid ventricular response Current visit: Yes Status: Acute Category: Medical Code(s): I48.91 - Unspecified atrial fibrillation (2) Hypokalemia Current visit: Yes Status: Acute Category: Medical Code(s): E87.6 - Hypokalemia (3) Palpitations Current visit: Yes Status: Acute Category: Medical Code(s): R00.2 - Palpitations (4) Anxiety Current visit: No Status: Acute Category: Medical Code(s): F41.9 - Anxiety disorder, unspecified (5) UTI (urinary tract infection) Current visit: No Status: Acute Qualifiers: Hematuria presence: without hematuria Category: Medical Code(s): N39.0 - Urinary tract infection, site not specified (6) CAD (coronary artery disease) Current visit: No Status: Chronic Qualifiers: Coronary Disease-Associated Artery/Lesion type: [place] artery [place] vs. transplanted heart: [place] heart Associated angina: without angina Qualified Code(s): I25.10 - Atherosclerotic heart disease of [place] coronary artery without angina pectoris Category: Medical Code(s): I25.10 - Atherosclerotic heart disease of [place] coronary artery without angina pectoris (7) Hyperlipidemia Current visit: No Status: Chronic Qualifiers: Hyperlipidemia type: mixed hyperlipidemia Qualified Code(s): E78.2 - Mixed hyperlipidemia Category: Medical Code(s): E78.5 - Hyperlipidemia, unspecified (8) Hypertension Current visit: No Status: Chronic Qualifiers: Hypertension type: essential hypertension Qualified Code(s): I10 - Essential (primary) hypertension Category: Medical Code(s): I10 - Essential (primary) hypertension (9) Renal insufficiency Current visit: Yes Status: Acute Category: Medical Code(s): N28.9 - Disorder of kidney and ureter, unspecified - Assessment and plan all Dx Assessment and Plan for all problems:: Patient admitted to [facility] for further evaluation and treatment. Plan to transition to oral Cardizem today, continue to replace potassium and treat UTI.
--- NOTE | 2019-02-22 09:40 | Pharmacy Consult Notes ---
[facility] Pharmacy VTE Monitoring - Patient Demographics Admission date: 02/21/19 Report Date: 02/22/19 Time: 09:40 Allergies/Adverse Reactions: Patient Allergies rosuvastatin [From CRESTOR] Allergy (Unknown, Verified 02/21/19 21:18) Height: 1.57 m Weight: 71.469 kg Patient Problems: Current Active Problems Palpitations (Acute) Hypokalemia (Acute) Atrial fibrillation with rapid ventricular response (Acute) Renal insufficiency (Acute) - VTE Risk Labs: VTE Related Lab Results Hgb 11.9 g/dL (12.2-16.2) L D 02/22/19 05:00 Hct 37.6 % (37.0-47.0) 02/22/19 05:00 Plt Count 358 K/mm3 (142-424) 02/22/19 05:00 BUN 12 mg/dL (7-18) 02/22/19 05:00 Creatinine 0.77 mg/dL (0.55-1.02) D 02/22/19 05:00 Estimated Creat Clear 47 mL/min (50-200) 02/22/19 05:00 Was VTE Risk Assessment Performed: Yes VTE Score: 2 VTE Risk Level: Very Low Risk - Prophylaxis VTE Prophylaxis Ordered?: Yes Types of VTE Prophylaxis: Pharmacological Pharmacologic Type: Other (XARELTO) - VTE Diagnosis Confirmed Treatment or plan recommended: Continue Current Treatment
[2019-02-23 06:48] LABS: Basophils % 0.3 % (0.1-2.0); Eosinophils % 0.5 % (0.1-12.0); Hematocrit 37.6 % (37.0-47.0); Hemoglobin 12.1 g/dL (12.2-16.2); Lymphocytes # 2.2 K/mm3 (0.7-4.5); Lymphocytes % 28.1 % (10-50); Mean Corpuscular HGB Conc 32.1 g/dL (31.8-35.4); Mean Corpuscular Volume 87.2 fl (81-99); Mean Platelet Volume 7.1 fl (7.4-10.4); Monocytes # 0.4 K/mm3 (0.1-1.0); Monocytes % 5.3 % (1.7-9.3); Neutrophils # 5.1 K/mm3 (1.8-7.8); Neutrophils % 65.9 % (37.0-80.0); Platelet Count 358 K/mm3 (142-424); Red Blood Count 4.31 M/mm3 (4.20-5.40); Red Cell Distribution Width 12.8 % (11.5-17.5); White Blood Count 7.7 K/mm3 (4.8-10.8)
[2019-02-23 06:58] LABS: Anion Gap 11.4 mEq/L (5-15); Calcium 8.4 mg/dL (8.5-10.1)
--- NOTE | 2019-02-23 10:30 | Progress Note ---
Internal Medicine - PN: Subj *Date: 02/23/19 *Time: 10:28 Interval history: Patient feels better today, no new problems. Still feels anxious at times. Exam Vital signs and Labs for Last 24 Hours: Temp Pulse Resp BP Pulse Ox 98.2 F 77 16 152/77 H 96 02/23/19 04:00 02/23/19 08:00 02/23/19 08:00 02/23/19 08:00 02/23/19 08:00 Laboratory Results - last 24 hr 02/23/19 05:35: WBC 7.7 D, RBC 4.31, Hgb 12.1 L, Hct 37.6, MCV 87.2, MCH 28.0, MCHC 32.1, RDW 12.8, Plt Count 358, MPV 7.1 L, Neut % (Auto) 65.9, Lymph % (Auto) 28.1, [place] % (Auto) 5.3, Eos % (Auto) 0.5, Baso % (Auto) 0.3, Neut # (Auto) 5.1, Lymph # (Auto) 2.2, [place] # (Auto) 0.4, Eos # (Auto) 0.0, Baso # (Auto) 0.0 02/23/19 05:35: Sodium 132 L, Potassium 3.4 L, Chloride 98, Carbon Dioxide 26, Anion Gap 11.4, BUN 8 D, Creatinine 0.64, Estimated Creat Clear 48, Estimated GFR 88, Est GFR ( Amer) 107 D, Glucose 98, Calcium 8.4 L Vital Signs - 24 hr 02/22/19 11:00 02/22/19 12:00 02/22/19 13:00 Temperature Pulse Rate 80 Pulse Rate [Right Radial] 79 82 81 Respiratory Rate 18 14 16 Blood Pressure [Right Arm] 152/81 H 156/81 H 122/65 02 Sat by Pulse Oximetry 97 99 99 02/22/19 14:00 02/22/19 15:00 02/22/19 15:59 Temperature Pulse Rate Pulse Rate [Right Radial] 79 76 Respiratory Rate 18 16 Blood Pressure [Right Arm] 117/66 161/62 H 02 Sat by Pulse Oximetry 98 98 99 02/22/19 16:00 02/22/19 17:00 02/22/19 18:00 Temperature Pulse Rate 70 Pulse Rate [Right Radial] 74 81 81 Respiratory Rate 16 14 18 Blood Pressure [Right Arm] 138/79 141/77 H 137/72 02 Sat by Pulse Oximetry 98 98 99 02/22/19 19:00 02/22/19 20:00 02/22/19 20:29 Temperature 98.6 F Pulse Rate 90 Pulse Rate [Right Radial] 85 77 Respiratory Rate 16 18 Blood Pressure [Right Arm] 110/66 144/77 H 02 Sat by Pulse Oximetry 96 96 02/22/19 22:00 02/23/19 00:00 02/23/19 02:00 Temperature 98.5 F Pulse Rate 70 Pulse Rate [Right Radial] 77 71 80 Respiratory Rate 16 15 19 Blood Pressure [Right Arm] 138/87 121/72 129/65 02 Sat by Pulse Oximetry 96 96 92 L 02/23/19 03:00 02/23/19 04:00 02/23/19 04:13 Temperature 98.2 F Pulse Rate 80 Pulse Rate [Right Radial] 81 78 Respiratory Rate 20 16 Blood Pressure [Right Arm] 163/82 H 157/85 H 02 Sat by Pulse Oximetry 95 94 L 94 L 02/23/19 05:00 02/23/19 06:00 02/23/19 07:00 Temperature Pulse Rate Pulse Rate [Right Radial] 75 81 77 Respiratory Rate 14 20 20 Blood Pressure [Right Arm] 151/90 H 167/86 H 157/86 H 02 Sat by Pulse Oximetry 94 L 95 95 02/23/19 08:00 Temperature Pulse Rate Pulse Rate [Right Radial] 77 Respiratory Rate 16 Blood Pressure [Right Arm] 152/77 H 02 Sat by Pulse Oximetry 96 I & O for Last 24 hours: Intake & Output 02/20/19 02/21/19 02/22/19 02/23/19 23:59 23:59 23:59 23:59 Intake Total 2085 Output Total 700 / 700 Balance 2085 -700 / -700 Weight 155 lb 5 oz 157 lb 9 oz 161 lb 3 oz Microbiology Reports for the Last 24 Hours: Microbiology 02/21/19 19:30 Urine,Clean Catch Urine Culture - Preliminary - Constitutional no acute distress - *Routine HEENT Exam Head: Present: normocephalic Eye: Present: EOMI ENT: Present: mucous membranes moist - *Routine Neck Exam Present: supple. Absent: lymphadenopathy - *Routine Respiratory Exam Present: CTA bilaterally - *Routine Cardiovascular Exam Present: RRR - *Routine Abdominal Exam Present: soft, normoactive bowel sounds. Absent: tenderness - *Routine Extremities Exam Absent: cyanosis, clubbing, edema - *Routine Skin Exam Present: warm. Absent: rash - *Routine Neurological Exam Present: alert, oriented X3 Assessment and Plan (1) Atrial fibrillation with rapid ventricular response Current visit: Yes Status: Acute Category: Medical Code(s): I48.91 - Unspecified atrial fibrillation (2) Hypokalemia Current visit: Yes Status: Acute Category: Medical Code(s): E87.6 - Hypokalemia (3) Palpitations Current visit: Yes Status: Acute Category: Medical Code(s): R00.2 - Palpitations (4) Anxiety Current visit: No Status: Acute Category: Medical Code(s): F41.9 - Anxiety disorder, unspecified (5) UTI (urinary tract infection) Current visit: No Status: Acute Qualifiers: Hematuria presence: without hematuria Category: Medical Code(s): N39.0 - Urinary tract infection, site not specified (6) CAD (coronary artery disease) Current visit: No Status: Chronic Qualifiers: Coronary Disease-Associated Artery/Lesion type: [place] artery [place] vs. transplanted heart: [place] heart Associated angina: without angina Qualified Code(s): I25.10 - Atherosclerotic heart disease of [place] coronary artery without angina pectoris Category: Medical Code(s): I25.10 - Atherosclerotic heart disease of [place] coronary artery without angina pectoris (7) Hyperlipidemia Current visit: No Status: Chronic Qualifiers: Hyperlipidemia type: mixed hyperlipidemia Qualified Code(s): E78.2 - Mixed hyperlipidemia Category: Medical Code(s): E78.5 - Hyperlipidemia, unspecified (8) Hypertension Current visit: No Status: Chronic Qualifiers: Hypertension type: essential hypertension Qualified Code(s): I10 - Essential (primary) hypertension Category: Medical Code(s): I10 - Essential (primary) hypertension (9) Renal insufficiency Current visit: Yes Status: Acute Category: Medical Code(s): N28.9 - Disorder of kidney and ureter, unspecified - Assessment and plan all Dx Assessment and Plan for all problems:: OK for discharge today. Will give a dose of Rocephin and potassium prior to discharge and will continue with Cefdinir and potassium chloride ass an outpatient. Discussed medication change for anxiety treatment but patient declines. Plan office f/u in about 1 week.
--- NOTE | 2019-02-24 18:28 | Electrocardiograph Report ---
APPROVED REPORT Exam: Resting ECG HR:82 bpm ECG Measurements Heart Rate 82 AXES [place] 156 P 79 QRSd 80 QRS 50 QT 424 T26 QTc 495 <Conclusion> Normal sinus rhythm Possible Left atrial enlargement Nonspecific ST and T wave abnormality Prolonged QT Abnormal ECG Electronically signed by : Onofre Cabrera, 02/24/2019 18:27:52
--- NOTE | 2019-02-24 18:33 | Electrocardiograph Report ---
APPROVED REPORT Exam: Resting ECG HR:85 bpm ECG Measurements Heart Rate 85 AXES IN 158 P 81 QRSd 88 QRS 59 QT 416 T56 QTc 495 <Conclusion> Normal sinus rhythm Nonspecific T wave abnormality,consider anterior ischemia Prolonged QT Abnormal ECG Electronically signed by : Onofre Cabrera, 02/24/2019 18:33:03
--- NOTE | 2019-02-24 18:34 | Electrocardiograph Report ---
APPROVED REPORT Exam: Resting ECG HR:144 bpm ECG Measurements Heart Rate 144 AXES [place] 170 P 75 QRSd 116 QRS 70 QT 250 T249 QTc 387 <Conclusion> Atrial Flutter ST & T wave abnormality, consider inferior ischemia ST & T wave abnormality, consider anterolateral ischemia Abnormal ECG Electronically signed by : Onofre Cabrera, 02/24/2019 18:34:29
--- NOTE | 2019-02-24 18:36 | Electrocardiograph Report ---
APPROVED REPORT Exam: Resting ECG HR:95 bpm ECG Measurements Heart Rate 95 AXES [place] 174 P 74 QRSd 84 QRS 54 QT 390 T51 QTc 490 <Conclusion> Normal sinus rhythm Nonspecific ST abnormality Prolonged QT Abnormal ECG Electronically signed by : Onofre Cabrera, 02/24/2019 18:36:25
--- NOTE | 2019-02-24 22:30 | Discharge Summary ---
General - General Admission date:: 02/21/19 Discharge date: 02/23/19 HPI HPI: 83 year old female with a history of atrial fibrillation presented to [facility] ER yesterday with a 1 day history of palpitations and rapid heart rate. She measured her heart rate in the 130's a couple of different times. Patient states she had been more anxious lately due to family visits during the [place] holiday season. She had stopped her Buspirone for a time due to pe rceived side effect of imbalance of gait but she had resumed it about a week ago and has not had gait problems. Hospital Course Hospital Course: The patient had a head CT showing nothing acute. There were some nonspecific white matter findings suggesting chronic microvascular ischemic changes as well as paranasal sinus disease. She had a chest x-ray which showed nothing acute. She was admitted and started on a Cardizem drip. She converted to normal sinus rhythm. She was transitioned to oral Cardizem. Her potassium was replaced and she was started on antibiotics for a urinary tract infection. She began feeling better, but still anxious at times. She was stable to be discharged home and was given a dose of Rocephin and potassium prior to discharge. She will be continued on oral cefdinir and potassium as an outpatient. Dr. Mims did discuss a medication change for anxiety treatment, but the patient declined. She will follow-up in the office in 1 week. Of note, her blood culture showed no growth and her urine culture showed mixed organisms suggesting contamination. Objective Vital signs: Temp Pulse Resp BP Pulse Ox 98.2 F 78 16 173/91 H 96 02/23/19 04:00 02/23/19 10:00 02/23/19 10:00 02/23/19 10:00 02/23/19 10:00 Narrative: - Constitutional no acute distress - *Routine HEENT Exam Head: Present: normocephalic Eye: Present: EOMI, PERRL ENT: Present: mucous membranes moist - *Routine Neck Exam Present: supple. Absent: lymphadenopathy - *Routine Respiratory Exam Present: CTA bilaterally - *Routine Cardiovascular Exam Present: RRR - *Routine Abdominal Exam Present: soft, normoactive bowel sounds. Absent: tenderness - *Routine Extremities Exam Absent: cyanosis, clubbing, edema - *Routine Skin Exam Present: warm. Absent: rash - *Routine Neurological Exam Present: alert, oriented X3 - Routine Psychiatric Exam Present: normal affect, cooperative. Absent: suicidal ideation, auditory hallucinations, visual hallucinations Results Labs on day of discharge: Preliminary micro results at discharge 02/21/19 21:15 Blood Culture - Preliminary Blood NO GROWTH AFTER 48 HOURS 02/21/19 21:15 Blood Culture - Preliminary Blood NO GROWTH AFTER 48 HOURS DS: Diagnosis - Discharge Diagnosis (1) Atrial fibrillation with rapid ventricular response Status: Acute (2) Hypokalemia Status: Acute (3) Palpitations Status: Acute (4) Anxiety Status: Acute (5) UTI (urinary tract infection) Status: Acute (6) CAD (coronary artery disease) Status: Chronic (7) Hyperlipidemia Status: Chronic (8) Hypertension Status: Chronic (9) Renal insufficiency Status: Acute Discharge Plan - Patient Discharge Instructions ACTIVITY: Continue current activity DIET: continue same diet Patient Instructions: Urinary Tract Infection, DI for Atrial Fibrillation, DI for Hypokalemia - Follow up Plan Follow up with: Moncho Mims MD [Primary Care Provider] - 03/04/19 Disposition: Home, Self-Senior Living Medications: Home Medications Medication Instructions Recorded Confirmed Type Atorvastatin Calcium [Atorvastatin 40 mg PO HS 09/26/17 02/21/19 History 40mg Tab] Gabapentin [Gabapentin 300mg Cap] 300 mg PO TID 09/26/17 02/21/19 History dilTIAZem HCl [Diltiazem 240mg 240 mg PO DAILY 09/26/17 02/22/19 History 24Hr ER Cap] hydroCHLOROthiazide [HCTZ 12.5mg 12.5 mg PO DAILY 09/26/17 02/21/19 History capsule] Buspirone HCl [Buspirone 15 mg 30 mg PO BID 12/12/18 02/21/19 History Tablets] Rivaroxaban [Xarelto 20mg Tablet*] 20 mg PO PM 12/12/18 02/21/19 History citalopram 40 mg tablet 40 mg PO DAILY #90 tab 12/31/18 02/21/19 History Multivitamin [One Daily] 1 each PO DAILY 02/21/19 02/21/19 History Acetaminophen [Acetaminophen 325mg 650 mg PO TIDP PRN 02/22/19 02/22/19 History tab] Cefdinir [Omnicef 300mg Capsule] 300 mg PO BID #14 cap 02/23/19 Rx Potassium Chloride 20 meq PO DAILY #30 tablet.er 02/23/19 Rx Prescriptions/Medication Reconciliation: New Cefdinir [Omnicef 300mg Capsule] 300 mg PO BID #14 cap Potassium Chloride 20 meq PO DAILY #30 tablet.er Continued citalopram 40 mg tablet 40 mg PO DAILY #90 tab Atorvastatin Calcium [Atorvastatin 40mg Tab] 40 mg PO HS dilTIAZem HCl [Diltiazem 240mg 24Hr ER Cap] 240 mg PO DAILY Gabapentin [Gabapentin 300mg Cap] 300 mg PO TID hydroCHLOROthiazide [HCTZ 12.5mg capsule] 12.5 mg PO DAILY Rivaroxaban [Xarelto 20mg Tablet*] 20 mg PO PM Buspirone HCl [Buspirone 15 mg Tablets] 30 mg PO BID Multivitamin [One Daily] 1 each PO DAILY Acetaminophen [Acetaminophen 325mg tab] 650 mg PO TIDP PRN PRN Reason: As Needed For Fever Or Pain - Problem Reconciliation Problems Reviewed?: Yes
== END 2019-02-23 12:30 | disposition home or self-care (01) ==
LOC: 2ND 14:53 → ER 14:53 → 2ND 20:25
PROVIDERS: ADMIT Family Medicine; ATTEND Family Medicine
CPT/HCPCS: 36415; 70450; 71020; 71046; 80048; 80053; 80061; 81001; 83735; 84484; 85025; 87040; 87086; 93005; 96365; 96367; 99282; G0378

== ENCOUNTER → 2019-08-20 14:25 | Outpatient (CLI) | payer MEDICARE, OTHER, SELFPAY ==
--- NOTE | 2019-08-20 14:45 | MM_ITS ---
PROCEDURE: MM DIG MAMM BI DX W/CAD Digital Breast Tomosynthesis Included CLINICAL INDICATION: Dx left breast mamm [id number] up, screening mammogram right breast COMPARISON: [facility] SCREENING ANDRE MAMMOGRAM from 11/27/2016 MG SCREENING ANDRE MAMMOGRAM from 01/30/2018 MM DIG MAMM DX UNILAT LT CAD from 01/01/2019 US BREAST LT COMPLETE from 08/20/2019 TECHNIQUE: Standard CC and MLO images and 3D Tomosynthesis was obtained. R2 CAD reviewed. FINDINGS: Scattered diffuse fibroglandular densities are seen throughout both breasts. There are no significant areas of asymmetry in either breast. The nipples are inverted bilaterally and this has been noted previously. There is no suspicious lesion and no suspicious microcalcifications. IMPRESSION: Moderate diffuse breast density with no suspicious lesions seen BI-RAD Category: 1 Negative FOLLOW-UP: 1YR 1 Year Follow-up (A letter has been sent to the patient regarding results of the study.) Dictated by: Dr. Se Alvarenga MD 08/29/2019 08:[address] Se Alvarenga MD in [place] 08/29/2019 08:47
--- NOTE | 2019-08-20 15:20 | US_ITS ---
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 It is stable and unchanged in appearance from the previous exam. The other smaller hypoechoic and cystic-appearing lesion is seen at the 1 o'clock position near the nipple and this likely is a cyst or hypoechoic fibroadenoma. There are 2 small nodes seen in the axilla. 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 Dictated by: Dr. Se Alvarenga MD 09/12/2019 13:[address] Se Alvarenga MD in [facility] 09/12/2019 13:16
== END ==
PROVIDERS: PCP Family Medicine; Visit Provider Nurse Practitioner Obstetrics & Gynecology
DX: R92.8 Other abnormal and inconclusive findings on diagnostic imaging of breast (principal)
CPT/HCPCS: 76641; 77062; 77066; G0279

== ENCOUNTER 2019-11-19 03:21 | Emergency (ER) | payer MEDICARE, OTHER, SELFPAY ==
[2019-11-19] VITALS (7 sets, daily range): BP systolic 131–161; BP diastolic 68–84; PULSE 80–90; RESP 16–18; TEMP 36.4–36.5; O2SAT 96–100; BMI 24.7; BMI 23.8
--- NOTE | 2019-11-19 03:09 | ECG_ITS ---
APPROVED REPORT Exam: Resting ECG HR:92 bpm ECG Measurements Heart Rate 92 AXES [place] 158 P 62 QRSd 84 QRS 29 QT 426 T 36 QTc 526 <Conclusion> Normal sinus rhythm T wave abnormality, consider anterior ischemia Prolonged QT Abnormal ECG Electronically signed by : Talat Fox, 11/22/2019 06:32:43
--- NOTE | 2019-11-19 03:18 | XR_ITS ---
PROCEDURE: XR PELVIS 1-2V CLINICAL INDICATION: LEFT HIP PAIN S/P FALL Posttraumatic pain COMPARISON: CT CT ABDOMEN PELVIS W CON from 11/19/2019 TECHNIQUE: XR Pelvis AP View FINDINGS: No fracture or dislocation is evident. No significant degenerative change. Contrast is present in the urinary bladder and right ureter. No evidence of contrast extravasation. IMPRESSION: No acute findings. Dictated by: Danish Bruno MD 11/19/2019 05:25 Danish Bruno MD in [facility] 11/19/2019 05:25
--- NOTE | 2019-11-19 03:18 | CT_ITS ---
PROCEDURE: CT CERVICAL SPINE WO CON CLINICAL INDICATION: FALL Neck injury with pain, contusion/abrasion or hematoma, cervical sprain/strain the COMPARISON: No exams were available for comparison TECHNIQUE: Axial images obtained with sagittal and coronal reformats. All CT scans at the facility use one or more dose reduction, viz: automated exposure control, ma/kV adjustment per patient size (including targeted exams where dose is matched to indication, i.e. head), or iterative reconstruction technique. Axial spiral CT scanning performed of the cervical spine beginning at the base of the skull and continuing to the upper T-spine. 3-D multiplanar reconstruction with 3-D manipulation of volumetric data set in image rendering was completed by the radiologist and/or technologist with the supervision of the radiologist on independent workstation. FINDINGS: There is normal alignment. There is an acute nondisplaced vertical oblique fracture of the right C1 lateral mass which extends from the superior to the inferior articular surface.. Acute nondisplaced fracture of the right C2 transverse process with questionable left C2 transverse process fracture.. The right C2 transverse process fracture does appear to extend into the transverse foramen. There is degenerative disc disease at C2-C3. C3-C4 and C4-C5 are unremarkable. C5-C6: Degenerate disc disease with small right paracentral disc osteophyte complex with canal stenosis and bilateral foraminal narrowing. C6-C7: Degenerate disc disease with partially calcified bulging disc with canal stenosis and bilateral lateral recess and foraminal narrowing. C7-T1 is unremarkable. There are several noncalcified pulmonary nodules in the left upper lobe the largest of which measures 7 mm. IMPRESSION: 1. Acute C1 and C2 fractures as described above. 2. Multilevel cervical spondylosis with canal stenosis. See above for detail. 3. Indeterminate left upper lobe nodules. 4. [facility] report rendered 11/19/2019 at 4:42 a.m. Dictated by: Danish Bruno MD 11/19/2019 05:42 Danish Bruno MD in [facility] 11/19/2019 05:42
--- NOTE | 2019-11-19 03:18 | CT_ITS ---
PROCEDURE: CT HEAD/BRAIN WO CON CLINICAL INDICATION: FALL Head injury with headache/pain, contusion, abrasion or hematoma COMPARISON: CT CT HEAD/BRAIN WO CON from 02/21/2019 TECHNIQUE: Axial images obtained. All CT scans at the facility use one or more dose reduction, viz: automated exposure control, ma/kV adjustment per patient size (including targeted exams where dose is matched to indication, i.e. head), or iterative reconstruction technique. FINDINGS: No midline shift, mass effect, intracranial hemorrhage, hydrocephalus, or extra-axial fluid collection is evident. There is generalized atrophy with hypoattenuation of the periventricular white matter consistent with microangiopathic changes.. Soft tissue swelling is present in the left frontal parietal region. The calvarium has an unremarkable appearance. No mastoid effusion. No sinus air-fluid level. IMPRESSION: 1. No acute intracranial findings. 2. Left frontal parietal scalp hematoma Dictated by: Danish Bruno MD 11/19/2019 05:34 Danish Bruno MD in [facility] 11/19/2019 05:34
--- NOTE | 2019-11-19 03:18 | XR_ITS ---
PROCEDURE: XR CHEST AP CLINICAL HISTORY: FALL Posttraumatic pain COMPARISON: CR XR CHEST PORTABLE from 12/12/2018 DX XR CHEST 2V from 02/12/2019 CR XR CHEST 2V from 02/21/2019 FINDINGS: The cardiomediastinal silhouette and pulmonary vascularity are within normal limits. Skin fold artifact present on the left. There is increased density overlying the left 1st rib anteriorly which is a chronic finding. There is an old right 7th rib fracture. Calcific tendinitis of the right shoulder. No acute bony abnormalities. IMPRESSION: No acute findings. Dictated by: Danish Bruno MD 11/19/2019 05:24 Danish Bruno MD in [facility] 11/19/2019 05:24
--- NOTE | 2019-11-19 03:18 | CT_ITS ---
PROCEDURE: CT ABDOMEN PELVIS W CON CLINICAL INDICATION: FALL, nausea and vomiting, left hip pain Blunt trauma with injury and pain, contusion/abrasion or hematoma following injury COMPARISON: CT ABDPELWO CT abdomen pelvis wo con from 09/26/2017 TECHNIQUE: IV Contrast: 75ML OPTIRAY 350 Oral Contrast None Axial images obtained with sagittal and coronal reformats. All CT scans at the facility use one or more dose reduction, viz: automated exposure control, ma/kV adjustment per patient size (including targeted exams where dose is matched to indication, i.e. head), or iterative reconstruction technique. FINDINGS: LOWER THORAX: There is a 7 mm noncalcified nodule in the left lower lobe posteriorly. This may been present previously but obscured by overlying atelectatic change. Suggest [address] chest follow-up to confirm stability. ABDOMEN & PELVIS: 2.5 cm cyst is present in the right hepatic lobe posteriorly. A 1 cm cyst is present in the caudate lobe inferiorly. There has been prior cholecystectomy with intrahepatic biliary ductal ectasia. The spleen, adrenal glands, and kidneys have an unremarkable appearance. There is an area of fat density in the pancreatic head measuring 12 mm with some intermixed soft tissue density which appear stable. Small bowel is dilated with fluid and air to the level of an abrupt transition point in the right mid abdominal region. Image 54 series 3 and image 19 series 601. Small bowel loops measure up to 3.7 cm. There are air-fluid levels. The stomach is also distended with air-fluid level. The bowel decompressed distal to this region consistent with a moderate grade small bowel obstruction. There is a moderate amount of retained colonic feces. The appendix is not clearly delineated. No evidence of appendicitis. No free air. There are post hysterectomy changes. No acute bony findings. IMPRESSION: 1. Moderate grade distal small bowel obstruction. 2. Constipation 3. Indeterminate 7 mm left lower lobe nodule. Recommend six-month follow-up. Dictated by: Danish Bruno MD 11/19/2019 06:02 Danish Bruno MD in [facility] 11/19/2019 06:02
[2019-11-19 03:31] LABS: Basophils % 0.1 % (0.1-2.0); Eosinophils # 0.1 K/mm3 (0.0-0.4); Eosinophils % 0.3 % (0.1-12.0); Hematocrit 41.1 % (37.0-47.0); Hemoglobin 13.9 g/dL (12.2-16.2); Lymphocytes # 1.2 K/mm3 (0.7-4.5); Lymphocytes % 7.1 % (10-50); Mean Corpuscular HGB Conc 33.7 g/dL (31.8-35.4); Mean Corpuscular Hemoglobin 30.8 pg (27.0-31.2); Mean Corpuscular Volume 91.2 fl (81-99); Mean Platelet Volume 8.2 fl (7.4-10.4); Monocytes # 0.4 K/mm3 (0.1-1.0); Monocytes % 2.4 % (1.7-9.3); Neutrophils # 14.9 K/mm3 (1.8-7.8); Neutrophils % 90.1 % (37.0-80.0); Platelet Count 307 K/mm3 (142-424); Red Blood Count 4.51 M/mm3 (4.20-5.40); Red Cell Distribution Width 12.9 % (11.5-17.5); White Blood Count 16.5 K/mm3 (4.8-10.8)
[2019-11-19 03:34] LABS: MANUAL DIFFERENTIAL MANUAL DIFFERENTIAL (MANUAL DIFF)
[2019-11-19 03:35] LABS: Chloride 96 mmol/L (98-107); Sodium 135 mmol/L (136-145)
[2019-11-19 03:37] LABS: Alanine Aminotransferase 35 U/L (12-78); Aspartate Amino Transferase 35 U/L (14-36); Blood Urea Nitrogen 16 mg/dl (7-17); Creatinine Clearance Estimated 38 mL/min (50-200); Estimated Glomerular Filt Rate 68 ml/min (>60); GFR (African American) 82 ML/MIN (>60)
[2019-11-19 03:38] LABS: Albumin Level 4.5 g/dl (3.5-5.0); Albumin/Globulin Ratio 1.6 (1.1-1.8); Alkaline Phosphatase 110 U/L (38-126); Calcium 10.5 mg/dl (8.4-10.2); Carbon Dioxide 27 mmol/L (22.0-30.0); Globulin 2.8 g/dL (1.3-3.2); Glucose 250 mg/dl (74-100); Lipase 73 U/L (23-300); Total Protein,Serum 7.3 g/dl (6.3-8.2)
[2019-11-19 03:39] LABS: INR 1.22 (0.9-1.1); Prothrombin Time 12.4 seconds (9.4-11.8)
[2019-11-19 03:43] LABS: C-Reactive Protein 1.7 mg/L (0-4)
[2019-11-19 04:01] LABS: Troponin I < 0.01 ng/ml (0.00-0.034)
[2019-11-19 04:07] LABS: Lymphocytes % 12 % (10-50); Monocytes % 2 % (2-9); Neutrophils % 86 % (42-76); Platelet Estimate Normal; RBC Morphology Normal; Total Cells Counted 100
[2019-11-19 04:28] LABS: Erythrocyte Sedimentation Rate 23 mm/hr (0-30)
--- NOTE | 2019-11-19 04:39 | PC.NURSE ---
NEGATIVE HEAD CT PER REPORT PRINT OFF; [facility] CURRENTLY ON THE PHONE WITH ATTENDING TO REPORT OTHER FINDINGS
--- NOTE | 2019-11-19 04:45 | PC.NURSE ---
CRITICAL FINDINGS REGARDING PATIENT C-SPINE CT RELAYED FROM [facility] TO PHYSICIAN. PER REPORT PATIENT APPEARS TO HAVE FRACTURE OF C1 AND C2
--- NOTE | 2019-11-19 04:46 | HMH.EDFALL ---
ED Disposition Clinical Impression: Small bowel obstruction C1 cervical fracture Qualifiers: Encounter type: initial encounter Fracture type: closed Fracture morphology: unspecified fracture morphology Fracture alignment: nondisplaced Qualified Code(s): S12.001A - Unspecified nondisplaced fracture of first cervical vertebra, initial encounter for closed fracture Closed C2 fracture Qualifiers: Encounter type: initial encounter Fracture morphology: unspecified fracture morphology Fracture alignment: nondisplaced Qualified Code(s): S12.101A - Unspecified nondisplaced fracture of second cervical vertebra, initial encounter for closed fracture Disposition: Xfer Short-Term Hosp Condition on Discharge: Serious Instructions: DI for Acute Abdomen Referrals: Moncho Mims MD [Primary Care Provider] - - Critical Care Critical Care Time: No Attestation: On 11/19/19, the high probability of a clinically significant, sudden or life threatening deterioration of the following system(s) required my full and direct attention, intervention and personal management. The time I documented below is in addition to time spent performing reported procedures but includes the following listed in this critical care notation. Medical Decision Making - Medical Records Medical records reviewed: Yes: I reviewed the patient's medical records. - Josh Inquiry Pt receiving controlled substance: No Vital Signs: 11/19/19 03:09 11/19/19 03:31 11/19/19 03:54 Temperature 97.6 F Temperature Source Oral Pulse Rate [Left] 86 80 85 Respiratory Rate 18 18 Blood Pressure [Right Arm] 152/76 H 157/84 H 161/82 H Blood Pressure Mean [Right Arm] 101 108 108 Blood Pressure Source [Right Arm] Automatic Cuff Automatic Cuff Automatic Cuff Blood Pressure Position [Right Arm] Supine Supine Supine 02 Sat by Pulse Oximetry 100 100 99 Oxygen Delivery Method Room Air Room Air Room Air 11/19/19 04:57 11/19/19 05:20 Temperature Temperature Source Pulse Rate [Left] 90 81 Respiratory Rate 18 16 Blood Pressure [Right Arm] 146/74 H 131/68 Blood Pressure Mean [Right Arm] 98 89 Blood Pressure Source [Right Arm] Automatic Cuff Automatic Cuff Blood Pressure Position [Right Arm] Supine Supine 02 Sat by Pulse Oximetry 96 96 Oxygen Delivery Method Room Air Room Air - Lab Data Lab results reviewed: Yes: I reviewed the patient's lab results. Lab Results 11/19/19 03:23: WBC 16.5 H, RBC 4.51, Hgb 13.9, Hct 41.1, MCV 91.2, MCH 30.8, MCHC 33.7, RDW 12.9, Plt Count 307, MPV 8.2, Neut % (Auto) 90.1 H, Lymph % (Auto) 7.1 L, [place] % (Auto) 2.4, Eos % (Auto) 0.3, Baso % (Auto) 0.1, Neut # (Auto) 14.9 H, Lymph # (Auto) 1.2, [place] # (Auto) 0.4, Eos # (Auto) 0.1, Baso # (Auto) 0.0, Total Counted 100, Neutrophils % (Manual) 86 H, Lymphocytes % (Manual) 12, Monocytes % (Manual) 2, Platelet Estimate Normal, RBC Morphology Normal, ESR 23 11/19/19 03:23: PT 12.4 H, INR 1.22 H 11/19/19 03:23: Sodium 135 L, Potassium 4.0, Chloride 96 L, Carbon Dioxide 27, Anion Gap 16.0 H, BUN 16, Creatinine 0.80, Estimated Creat Clear 38, Estimated GFR 68, Est GFR ( Amer) 82, Glucose 250 H, Calcium 10.5 H, Total Bilirubin 1.0, AST 35, ALT 35, Alkaline Phosphatase 110, Troponin I < 0.01, C-Reactive Protein 1.7, Total Protein 7.3, Albumin 4.5, Globulin 2.8, Albumin/Globulin Ratio 1.6, Lipase 73 11/19/19 04:56: Urine Color Yellow, Urine Appearance Clear, Urine pH 7.0, Ur Specific [place] 1.015, Urine Protein Negative, Urine Glucose (UA) Negative, Urine Ketones 1+, Urine Blood Negative, Urine Nitrate Negative, Urine Bilirubin Negative, Urine Urobilinogen 0.2, Ur Leukocyte Esterase Negative, Urine Bacteria 1+, Hyaline Casts 3-5, Urine Mucus 1+ Result diagrams: 11/19/19 03:23 11/19/19 03:23 Orders (Tests/Meds): ED MEDICATIONS Generic Name Dose Route Start Last Admin Trade Name Freq PRN Reason Stop Dose Admin Sodium Chloride 1,000 mls @ 999 mls/hr 11/19/19 03:15 11/19/19 03:25 Sod Ch
--- NOTE | 2019-11-19 04:46 | PC.NURSE ---
Vital signs delayed. Pt in radiology
--- NOTE | 2019-11-19 05:00 | PC.NURSE ---
PATIENT REMAINS IN C-COLLAR PER ATTENDING REQUEST. PATIENT IS IN NAD, VSS, AND NEW WARM BLANKETS PROVIDED
[2019-11-19 05:01] LABS: Microscopic, Urine URINE MICROSCOPIC (MICROSCOPIC)
[2019-11-19 05:03] LABS: Appearance,Urine CLEAR (Clear); Bilirubin,Urine Negative (Negative); Blood, Urine Negative (Negative); Color,Urine YELLOW (Yellow); Glucose,Urine (UA) Negative (Negative); Ketones,Urine 1+ (Negative); Leukocyte Esterase,Urine Negative (Negative); Nitrate,Urine Negative (Negative); Protein,Urine Negative (Negative); Specific Gravity, Urine 1.015 (1.005-1.030); Urobilinogen,Urine 0.2 EU/dl (0.2)
--- NOTE | 2019-11-19 05:10 | PC.NURSE ---
Calling [facility] for pt transfer
[2019-11-19 05:11] LABS: Bacteria,Urine 1+ /lpf; Mucus,Urine 1+ /lpf
--- NOTE | 2019-11-19 05:38 | PC.NURSE ---
REPORT CALLED TO MIKA RN AT [facility] [phone]; [facility] NOTIFIED OF BLS TRANSFER, AND WILL BE HERE FOR TRANSPORT. ALL PAPER WORK COMPLETED, AND READY TO SEND WITH PATIENT.
[2019-11-19 06:43] LABS: Coronavirus 19 IgG Antibody Negative (Negative); Coronavirus 19 IgM Antibody Negative (Negative)
== END 2019-11-19 06:17 | disposition short-term general hospital (02) ==
PROVIDERS: Emergency Provider Emergency Medicine; PCP Family Medicine
DX: K56.699 Other intestinal obstruction unspecified as to partial versus complete obstruction (principal); S12.001A Unspecified nondisplaced fracture of first cervical vertebra, initial encounter for closed fracture; S12.101A Unspecified nondisplaced fracture of second cervical vertebra, initial encounter for closed fracture; W01.0XXA Fall on same level from slipping, tripping and stumbling without subsequent striking against object, initial encounter; Y92.019 Unspecified place in single-family (private) house as the place of occurrence of the external cause; I25.10 Atherosclerotic heart disease of native coronary artery without angina pectoris; I48.20 Chronic atrial fibrillation, unspecified; F03.90 Unspecified dementia, unspecified severity, without behavioral disturbance, psychotic disturbance, mood disturbance, and anxiety; E78.5 Hyperlipidemia, unspecified; I10 Essential (primary) hypertension; Z79.899 Other long term (current) drug therapy; Z03.818 Encounter for observation for suspected exposure to other biological agents ruled out
CPT/HCPCS: 70450; 71045; 72125; 72170; 74177; 80053; 81001; 83690; 84484; 85007; 85025; 85610; 85651; 86140; 86328; 93005; 96365; 96375; 99285; J2405; Q9967

== ENCOUNTER → 2020-06-12 11:13 | Outpatient (CLI) | payer MEDICARE, OTHER, SELFPAY ==
[2020-06-12 12:11] LABS: Occult Blood,Stool Negative (Negative)
== END ==
PROVIDERS: Visit Provider Nurse Practitioner Family
DX: R19.5 Other fecal abnormalities (principal)
CPT/HCPCS: 82272; G0328

== ENCOUNTER → 2020-07-01 16:01 | Outpatient (CLI) | payer MEDICARE, OTHER, SELFPAY ==
[2020-07-01 16:08] LABS: Microscopic, Urine URINE MICROSCOPIC (MICROSCOPIC)
[2020-07-01 16:24] LABS: Basophils % 0.3 % (0.1-2.0); Eosinophils # 0.1 K/mm3 (0.0-0.4); Eosinophils % 1.2 % (0.1-12.0); Hematocrit 36.6 % (37.0-47.0); Hemoglobin 11.8 g/dL (12.2-16.2); Lymphocytes # 1.5 K/mm3 (0.7-4.5); Lymphocytes % 23.5 % (10-50); Mean Corpuscular HGB Conc 32.3 g/dL (31.8-35.4); Mean Corpuscular Hemoglobin 29.2 pg (27.0-31.2); Mean Corpuscular Volume 90.2 fl (81-99); Mean Platelet Volume 7.4 fl (7.4-10.4); Monocytes # 0.4 K/mm3 (0.1-1.0); Monocytes % 6.8 % (1.7-9.3); Neutrophils # 4.4 K/mm3 (1.8-7.8); Neutrophils % 68.2 % (37.0-80.0); Platelet Count 240 K/mm3 (142-424); Red Blood Count 4.06 M/mm3 (4.20-5.40); Red Cell Distribution Width 12.8 % (11.5-17.5); White Blood Count 6.5 K/mm3 (4.8-10.8)
[2020-07-01 16:26] LABS: Appearance,Urine SL CLOUDY (Clear); Bilirubin,Urine Negative (Negative); Blood, Urine Negative (Negative); Color,Urine YELLOW (Yellow); Glucose,Urine (UA) Negative (Negative); Ketones,Urine Negative (Negative); Leukocyte Esterase,Urine 2+ (Negative); Nitrate,Urine Negative (Negative); PH,Urine 6.5 (5.0-8.5); Protein,Urine Negative (Negative); Specific Gravity, Urine 1.015 (1.005-1.030); Urobilinogen,Urine 0.2 EU/dl (0.2)
[2020-07-01 16:34] LABS: Alanine Aminotransferase 17 U/L (12-78); Albumin/Globulin Ratio 1.5 (1.1-1.8); Alkaline Phosphatase 70 U/L (38-126); Anion Gap 5.4 mEq/L (5-15); Aspartate Amino Transferase 20 U/L (14-36); Bilirubin,Total 0.5 mg/dl (0.2-1.3); Blood Urea Nitrogen 12 mg/dl (7-17); Carbon Dioxide 33 mmol/L (22.0-30.0); Chloride 103 mmol/L (98-107); Estimated Glomerular Filt Rate 80 ml/min (>60); GFR (African American) 96 ML/MIN (>60); Globulin 2.6 g/dL (1.3-3.2); Glucose 93 mg/dl (74-100); Potassium 3.4 mmoL/L (3.5-5.1); Sodium 138 mmol/L (136-145); Total Protein,Serum 6.6 g/dl (6.3-8.2)
[2020-07-01 16:39] LABS: Bacteria,Urine 1+ /lpf; Squamous Epithelial Cell,Urine Occasional #/hpf (0-5); WBC,Urine 20-50 #/hpf (0-3)
== END ==
PROVIDERS: Visit Provider Family Medicine
DX: I10 Essential (primary) hypertension (principal); E78.5 Hyperlipidemia, unspecified; N39.0 Urinary tract infection, site not specified
CPT/HCPCS: 80053; 81001; 85025; 87086

== ENCOUNTER 2020-09-27 00:37 | Inpatient (IN) | payer MEDICARE, OTHER, SELFPAY ==
[2020-09-27] VITALS (18 sets, daily range): BP systolic 112–155; BP diastolic 59–92; PULSE 70–134; RESP 14–19; TEMP 36.4–36.8; O2SAT 97–100; BMI 24.0; BMI 22.4; BMI 22.6
--- NOTE | 2020-09-27 00:51 | PC.NURSE ---
call for rad for ct head
--- NOTE | 2020-09-27 00:52 | CT_ITS ---
PROCEDURE INFORMATION: Exam: CT Head Without Contrast Exam date and time: 09/27/2020 12:52 AM Age: 85 years old Clinical indication: Weakness, extremity; Patient HX: Left upper extremity weakness, difficulty with speech onset 30 min ago; Additional info: Lue weakness, difficulty with speech, onset 30min TECHNIQUE: Imaging protocol: Computed tomography of the head without contrast. Total images: 83 Radiation optimization: All CT scans at this facility use at least one of these dose optimization techniques: automated exposure control; mA and/or kV adjustment per patient size (includes targeted exams where dose is matched to clinical indication); or iterative reconstruction. Other technique: STROKE PROTOCOL was implemented. COMPARISON: CT CERVICAL SPINE WO CON 11/19/2019 4:05 AM FINDINGS: Brain: Global brain atrophy and chronic white matter ischemic changes are present. Cerebral ventricles: No ventriculomegaly. Paranasal sinuses: Visualized sinuses are unremarkable. No fluid levels. Mastoid air cells: Visualized mastoid air cells are well aerated. Bones/joints: Unremarkable. No acute fracture. Soft tissues: Unremarkable. IMPRESSION: Global brain atrophy and chronic white matter ischemic changes are present. No acute intracranial abnormality. ASSESSMENT: ASPECTS ([place] Stroke Program Early CT Score) is 10.
--- NOTE | 2020-09-27 00:52 | XR_ITS ---
PROCEDURE INFORMATION: Exam: XR Chest Exam date and time: 09/27/2020 12:52 AM Age: 85 years old Clinical indication: Sternal or substernal pain; Patient HX: Chest pain, left upper extremity weakness TECHNIQUE: Imaging protocol: XR of the chest. Views: 1 view. Total images: 1 COMPARISON: CR XR CHEST AP 11/19/2019 4:47 AM FINDINGS: Lungs: Pulmonary hyperinflation is evident, suspicious for COPD. Pleural spaces: Unremarkable. No pleural effusion. No pneumothorax. Heart/Mediastinum: Unremarkable. No cardiomegaly. Vasculature: Atherosclerosis is evident. Bones/joints: Acromioclavicular joint degeneration. Old right rib fracture evident. Soft tissues: Skin folds overlie the left lateral chest. IMPRESSION: 1. Pulmonary hyperinflation is evident, suspicious for COPD. 2. No convincing acute process identified.
--- NOTE | 2020-09-27 00:52 | ECG_ITS ---
APPROVED REPORT Exam: Resting ECG HR:127 bpm ECG Measurements Heart Rate 127 AXES QRSd 84 QRS 68 QT 344 T -58 QTc 499 Conclusion Atrial fibrillation with rapid ventricular response with premature ventricular or aberrantly conducted complexes Low voltage QRS ST & T wave abnormality, consider anterolateral ischemia Abnormal ECG Electronically signed by : Talat Fox, 09/28/2020 08:30:23
--- NOTE | 2020-09-27 00:56 | HMH.EDGENADL ---
ED Disposition Clinical Impression: Rapid atrial fibrillation, Paroxysmal atrial fibrillation Disposition: Admitted as Observation Condition on Discharge: Fair Referrals: Moncho Mims MD [Primary Care Provider] - - Critical Care Critical Care Time: Yes Attestation: On 09/27/20, the high probability of a clinically significant, sudden or life threatening deterioration of the following system(s) required my full and direct attention, intervention and personal management. The time I documented below is in addition to time spent performing reported procedures but includes the following listed in this critical care notation. Total Critical Care Time: 30 Vital system(s) involved:: Circulatory Failure My critical care processes included: Assessment & monitoring of V/S, Initial and Re-exams, Data Review/Interpretation, Coordinating Care, Medication Orders and management, Documentation Medical Decision Making - Medical Records Medical records reviewed: Yes: I reviewed the patient's medical records. MR Comment: Reviewed previous heart cath result, see below. - Josh Inquiry Pt receiving controlled substance: No Vital Signs: 09/27/20 00:35 Temperature 97.6 F Temperature Source Oral Pulse Rate [Right] 114 H Respiratory Rate 19 Blood Pressure [Right Arm] 124/74 Blood Pressure Mean [Right Arm] 90 Blood Pressure Source [Right Arm] Automatic Cuff 02 Sat by Pulse Oximetry 97 Oxygen Delivery Method Room Air - Lab Data Lab Results 09/27/20 00:53: WBC 5.5, RBC 4.26, Hgb 12.1 L, Hct 35.7 L, MCV 83.8, MCH 28.5, MCHC 34.0, RDW 14.0, Plt Count 292, MPV 7.7, Neut % (Auto) 47.5, Lymph % (Auto) 43.8, [place] % (Auto) 5.6, Eos % (Auto) 2.4, Baso % (Auto) 0.6, Neut # (Auto) 2.6, Lymph # (Auto) 2.4, [place] # (Auto) 0.3, Eos # (Auto) 0.1, Baso # (Auto) 0.0 09/27/20 00:53: Sodium 133 L, Potassium 4.3, Chloride 95 L, Carbon Dioxide 30, Anion Gap 12.3, BUN 16, Creatinine 0.70, Estimated Creat Clear 37, Estimated GFR 79, Est GFR ( Amer) 96, Glucose 132 H, Calcium 8.9, Total Bilirubin 0.6, AST 24, ALT 19, Alkaline Phosphatase 88, Troponin I < 0.01, Total Protein 6.4, Albumin 3.9, Globulin 2.5, Albumin/Globulin Ratio 1.6, TSH 3.87, Thyroxine (T4) 10.8 09/27/20 00:53: NT-Pro-B Natriuret Pep 301 Result diagrams: 09/27/20 00:53 09/27/20 00:53 Orders (Tests/Meds): ED MEDICATIONS Generic Name Dose Route Start Last Admin Trade Name Freq PRN Reason Stop Dose Admin Diltiazem HCl 100 mg/ Sodium 100 mls @ 5 mls/hr 09/27/20 01:15 09/27/20 01:20 Chloride IV 10/27/20 01:14 5 mls/hr .Q20H COREY Administration Protocol Discontinued Medications Generic Name Dose Route Start Last Admin Trade Name Freq PRN Reason Stop Dose Admin Diltiazem HCl 10 mg 09/27/20 00:59 09/27/20 01:10 Diltiazem 25mg/5ml Vial IV 09/27/20 01:00 10 mg ONCE ONE Administration Diltiazem HCl 10 mg 09/27/20 01:52 09/27/20 02:00 Diltiazem 25mg/5ml Vial IV 09/27/20 01:53 10 mg ONCE ONE Administration ORDERS Category Date Time Status Rapid PCR Covid and Flu A/B Stat Lab 09/27/20 02:22 Ordered Troponin I Q3H Lab 09/27/20 04:00 Ordered Troponin I Q3H Lab 09/27/20 07:00 Ordered PROCEDURES Left heart catheterization Left ventriculogram Selective coronary angiogram INDICATION Recurrent angina pectoris, Recalcitrant chest pain, Coronary artery disease/coronary calcifications, Numerous risk factors for coronary artery disease Informed consent was obtained prior to the procedure. COMPLICATIONS none Estimated Blood Loss: less than 10 mls TECHNIQUE One percent lidocaine used to anesthetize the right anterior aspect of the wrist. The right radial artery was accessed via the Seldinger technique. A 6 [place] sheath was placed in the right radial artery. 2.5 mg of verapamil, 800 mcg of nitroglycerin, 1mg Lidocaine and 5000 U Heparin were given through the arterial sheath. The trap catheter was als
[2020-09-27 01:19] LABS: Basophils % 0.6 % (0.1-2.0); Eosinophils # 0.1 K/mm3 (0.0-0.4); Eosinophils % 2.4 % (0.1-12.0); Hematocrit 35.7 % (37.0-47.0); Hemoglobin 12.1 g/dL (12.2-16.2); Lymphocytes # 2.4 K/mm3 (0.7-4.5); Lymphocytes % 43.8 % (10-50); Mean Corpuscular Hemoglobin 28.5 pg (27.0-31.2); Mean Corpuscular Volume 83.8 fl (81-99); Mean Platelet Volume 7.7 fl (7.4-10.4); Monocytes # 0.3 K/mm3 (0.1-1.0); Monocytes % 5.6 % (1.7-9.3); Neutrophils # 2.6 K/mm3 (1.8-7.8); Neutrophils % 47.5 % (37.0-80.0); Platelet Count 292 K/mm3 (142-424); Red Blood Count 4.26 M/mm3 (4.20-5.40); White Blood Count 5.5 K/mm3 (4.8-10.8)
[2020-09-27 01:24] LABS: Alanine Aminotransferase 19 U/L (12-78); Albumin Level 3.9 g/dl (3.5-5.0); Albumin/Globulin Ratio 1.6 (1.1-1.8); Alkaline Phosphatase 88 U/L (38-126); Anion Gap 12.3 mEq/L (5-15); Aspartate Amino Transferase 24 U/L (14-36); Bilirubin,Total 0.6 mg/dl (0.2-1.3); Blood Urea Nitrogen 16 mg/dl (7-17); Calcium 8.9 mg/dl (8.4-10.2); Carbon Dioxide 30 mmol/L (22.0-30.0); Chloride 95 mmol/L (98-107); Creatinine Clearance Estimated 37 mL/min (50-200); Estimated Glomerular Filt Rate 79 ml/min (>60); GFR (African American) 96 ML/MIN (>60); Globulin 2.5 g/dL (1.3-3.2); Glucose 132 mg/dl (74-100); Potassium 4.3 mmoL/L (3.5-5.1); Sodium 133 mmol/L (136-145); Total Protein,Serum 6.4 g/dl (6.3-8.2)
[2020-09-27 01:33] LABS: NT Pro Brain Natriuretic Pep. 301 pg/mL (0-450)
[2020-09-27 01:40] LABS: Troponin I < 0.01 ng/ml (0.00-0.034)
[2020-09-27 01:42] LABS: T4 (Thyroxine) 10.8 ug/dl (5.53-11.0)
[2020-09-27 01:56] LABS: Thyroid Stimulating Hormone 3.87 uIU/mL (0.465-4.68)
--- NOTE | 2020-09-27 02:22 | PC.NURSE ---
Cardizem gtt increased to 10mg/hr after 2nd 10mg bolus, per MD Corrigan.
--- NOTE | 2020-09-27 02:28 | PC.NURSE ---
paged Dr. Mims for Dr. Corrigan for admission
--- NOTE | 2020-09-27 02:30 | PC.NURSE ---
Dr. Corrigan s/w Dr. Mims, agrees for admission- Pt on Cardizem gtt and requires Step-down admit. lending activities supervisor called for bed assignment.
[2020-09-27 02:39] LABS: Coronavirus 19, PCR Not Detected (NotDetected); Influenza A, PCR Not Detected (NotDetected)
--- NOTE | 2020-09-27 02:45 | PC.NURSE ---
Increased Cardizem gtt to 15mg/hr
[2020-09-27 03:41] LABS: Influenza B, PCR Not Detected (NotDetected)
[2020-09-27 04:26] LABS: Troponin I 0.11 ng/ml (0.00-0.034)
--- NOTE | 2020-09-27 06:53 | ECG_ITS ---
APPROVED REPORT Exam: Resting ECG HR:70 bpm ECG Measurements Heart Rate 70 AXES IL 172 P 76 QRSd 88 QRS 52 QT 446 T 47 QTc 481 Conclusion Normal sinus rhythm Possible Left atrial enlargement Low voltage QRS Borderline ECG Electronically signed by : Talat Fox, 09/28/2020 08:29:15
--- NOTE | 2020-09-27 08:49 | HMH.HP ---
*Admission Date: 09/27/20 <Nia Bess - 09/27/20 09:12> *Chief complaint: Atrial fib with rapid ventricular response. <Nia Bess - 09/27/20 09:12> *History of present illness: Ms. Silva is an 85-year-old female with a history of hypercholesterolemia, hypertension, depression, glaucoma, neuropathy, renal insufficiency, anemia, endometrial cancer, paroxysmal atrial fibrillation, lumbar disc herniation, anxiety, and bowel obstruction requiring surgery at 12/16/2019 who presented to [facility] emergency room after noticing her heart fluttering resulting in not feeling well. She states she did not have chest pain and was not short of breath but just felt hot all over. She states the irregular heartbeat started after she went to the bathroom around 12 midnight. She called her daughter and was brought to the emergency room for evaluation. In the emergency room she was found to be in atrial fibrillation with a rapid response. She was given a diltiazem bolus and started on a drip. She was then admitted for further evaluation, treatment, and monitoring. Laboratory data on admission show a hemoglobin of 12.1 hematocrit of 35.7. Blood chemistries show sodium of 133 potassium 4.3 and normal renal function. Troponin I's have been less than 0.01 and 0.11. BNP was 301. TSH was 3.87. Liver function studies were normal. She also had the following imaging: #[address] showed global brain atrophy and chronic white matter ischemic changes present with no acute intracranial abnormality. Chest x-ray revealed pulmonary hyperinflation suspicious for COPD. No convincing acute process identified. This a.m. she converted to sinus rhythm in the 70s. She is sitting up in the bed eating breakfast. She denies chest pain and shortness of breath. She is conversant. Daughter is at bedside. <Nia Bess - 09/27/20 09:12> [facility] History Medical History: Reports:: Anxiety, Atrial Fibrillation, Cancer (Endometreosis.), Coronary Artery Disease, Dementia, Gastroesophageal Reflux Disease(GERD), Hyperlipidemia, Hypertension, Palpitations, Renal Disease Denies:: Diabetes Mellitus Type 1, Diabetes Mellitus Type 2, Internal Pacemaker, Lung Disease, MRSA, Seizures <Marsha Besshy - 09/27/20 09:12> *Have you ever received a pneumonia vaccine?: Yes <Nia Bess 09/27/20 09:12> *Have you received a flu vaccine this season?: No <Nia Bess 09/27/20 09:12> Other Medical History: Reports: Anemia, Arthritis, Cataracts, Glaucoma, Other <Nia Bess 09/27/20 09:12> Laterality Cases: Left: Arthroscopy Knee, Carpal Tunnel Release <ShahriarNia 09/27/20 09:12> Other Surgeries: Yes: Appendectomy, Cancer Surgery, Cardiac Catheterization, Cholecystectomy, Colonoscopy, , Dilation and Curettage, Hernia Repair, Hysterectomy-Total, Other (cyst removed from right ovary, lysis of abdominal adhesions, left wrist). No: Pacemaker <ShahriarNia 09/27/20 09:12> Amputation: No <ShahriarNia 09/27/20 09:12> Fractures: Yes <ShahriarNia 09/27/20 09:12> - *Social History Last grade of school completed: Advanced degree <ShahriarNia 09/27/20 09:12> Smoking Status: Never smoker <ShahriarNia 09/27/20 09:12> Alcohol Intake: never <ShahriarNia 09/27/20 09:12> Substance Use Type: denies use <ShahriarNia 09/27/20 09:12> *Occupational Status:: retired <ShahriarNia 09/27/20 09:12> Housing: house <ShahriarNia 09/27/20 09:12> Household Members: children <ShahriarNia 09/27/20 09:12> *Travel in the last 8 weeks: None <ShahriarNia 09/27/20 09:12> - Psychiatric History Pschychiatric History:: Reports:: Anxiety <BessNia 09/27/20 09:12> Family Hx:: Cancer <BessNia 09/27/20 09:12> Comment: Father had heart disease. Mother with cervical cancer/uterine cancer. Siblings had colon cancer <Bess,Nia 09/27/20 09:12> Review of Systems - Constitutional Denies fever(s), Denies
--- NOTE | 2020-09-27 09:06 | P.CONPHA_ITS ---
[facility] Pharmacy VTE Monitoring - Patient Demographics Admission date: 09/27/20 Report Date: 09/27/20 Time: 09:06 Allergies/Adverse Reactions: Patient Allergies rosuvastatin [From CRESTOR] Allergy (Unknown, Verified 09/27/20 04:31) Height: 1.6 m Weight: 57.788 kg Patient Problems: Current Active Problems Rapid atrial fibrillation (Acute) Paroxysmal atrial fibrillation (Acute) - VTE Risk Labs: VTE Related Lab Results Hgb 12.1 g/dL (12.2-16.2) L 09/27/20 00:53 Hct 35.7 % (37.0-47.0) L 09/27/20 00:53 Plt Count 292 K/mm3 (142-424) 09/27/20 00:53 BUN 16 mg/dl (7-17) 09/27/20 00:53 Creatinine 0.70 mg/dl (0.52-1.04) 09/27/20 00:53 Estimated Creat Clear 37 mL/min (50-200) 09/27/20 00:53 Was VTE Risk Assessment Performed: Yes VTE Score: 1 VTE Risk Level: Very Low Risk Clinical Trial Participant: No - Prophylaxis VTE Prophylaxis Ordered?: Yes Types of VTE Prophylaxis: TEDS Knee High Pharmacologic Type: Other
--- NOTE | 2020-09-27 10:45 | PC.NURSE ---
Cardizem gtt DC'd one hour after PO cardizem given, order per Dr Mims
--- NOTE | 2020-09-27 15:06 | HMH.PHAINT ---
MEDICATION RECONCILIATION COMPLETED USING LEDY FROM [facility].
[2020-09-28] VITALS: BP 110/52; PULSE 70; PULSE 71; RESP 15; TEMP 36.7; O2SAT 94
--- NOTE | 2020-09-28 03:57 | PC.NURSE ---
Patient is alert and oriented x4. Patient has had no complaints this shift. She has had 2 small BM this shift. She ambulates to the bedside commode with assistance x1. Lung sounds are clear. Patient has been normal sinus rhythm all shift. Vital signs are stable, will continue to monitor, call light within reach.
[2020-09-28 04:00] VITALS: BP 121/63; PULSE 60; PULSE 64; RESP 14; TEMP 36.6; O2SAT 96
[2020-09-28 04:43] VITALS: BMI 22.3
--- NOTE | 2020-09-28 06:28 | SW/DCPLANNER ---
PATIENT ADMITTED INTO THE HOSPITAL WITH AFIB WITH VENTRICULAR RESPONSE FROM [facility] WHERE SHE IS STAYING IN THE SKILLED UNIT.. I SPOKE WITH HER DAUGHTER IN LAW LAST EVENING VIA TELEPHONE AND SHE STATED HER MOTHER IN LAW WILL CONTINUE AT [facility] WHEN DISCHARGED.. I SENT UPDATES TO [facility] THIS MORNING, NOT SURE WHEN PATIENT WILL BE READY FOR DISPOSITION...
[2020-09-28 07:48] VITALS: BP 160/80; PULSE 70; RESP 15; TEMP 36.8; O2SAT 94
[2020-09-28 08:00] VITALS: PULSE 70; PULSE 80; O2SAT 94
--- NOTE | 2020-09-28 08:49 | HMH.ACPN2 ---
<Nia Bess - Last Filed: 09/28/20 08:49> Internal Medicine - PN: Subj *Date: 09/28/20 *Time: 08:49 Interval history: Patient slept well last night. She denies chest pain and shortness of breath. She is ready to go back to [place]. She states her heart has been beating regularly. She has been up to the bedside commode but is anxious to be out of bed more. She is eating without difficulty. She is voiding QS. Cardiac drip has been discontinued since yesterday a.m. She is on 180 and diltiazem daily. Blood pressure has been elevated and is 160/80 this morning. Exam Vital signs and Labs for Last 24 Hours: Temp Pulse Resp BP Pulse Ox 98.2 F 70 15 160/80 H 94 L 09/28/20 07:48 09/28/20 07:48 09/28/20 07:48 09/28/20 07:48 09/28/20 07:48 Laboratory Results - last 24 hr 09/27/20 08:42: Troponin I 0.20 H I & O for Last 24 hours: Intake & Output 09/25/20 09/26/20 09/27/20 09/28/20 11:59 11:59 11:59 11:59 Intake Total 480 / 480 480 / 480 Output Total 500 / 500 1550 / 1550 Balance -20 / -20 -1070 / -1070 Weight 127 lb 6.4 oz 126 lb - Constitutional no acute distress Comments: Sitting up in the bed and appears comfortable. - *Routine Respiratory Exam Present: CTA bilaterally (Anteriorly and posteriorly) - *Routine Cardiovascular Exam Present: RRR (Monitor showing sinus rhythm in the 70s) - *Routine Abdominal Exam Present: soft, normoactive bowel sounds. Absent: tenderness, distended - *Routine Extremities Exam Present: edema (Only trace bilateral at ankles). Absent: calf tenderness - *Routine Neurological Exam Present: alert, oriented X3 (Conversant) Assessment and Plan (1) Atrial fibrillation with rapid ventricular response Status: Acute Category: Medical Code(s): I48.91 - Unspecified atrial fibrillation (2) Paroxysmal atrial fibrillation Status: Chronic Category: Medical Code(s): I48.0 - Paroxysmal atrial fibrillation (3) CAD (coronary artery disease) Status: Chronic Qualifiers: Coronary Disease-Associated Artery/Lesion type: [place] artery [place] vs. transplanted heart: [place] heart Associated angina: without angina Qualified Code(s): I25.10 - Atherosclerotic heart disease of [place] coronary artery without angina pectoris Category: Medical Code(s): I25.10 - Atherosclerotic heart disease of [place] coronary artery without angina pectoris (4) Degenerative disc disease Status: Chronic Qualifiers: Spinal region: lumbar Qualified Code(s): M51.36 - Other intervertebral disc degeneration, lumbar region Category: Medical (5) Hyperlipidemia Status: Chronic Qualifiers: Hyperlipidemia type: mixed hyperlipidemia Qualified Code(s): E78.2 - Mixed hyperlipidemia Category: Medical Code(s): E78.5 - Hyperlipidemia, unspecified (6) Anxiety Status: Acute Category: Medical Code(s): F41.9 - Anxiety disorder, unspecified (7) Chest pain Status: Acute Qualifiers: Chest pain type: other chest pain Qualified Code(s): R07.89 - Other chest pain; R07.8 - Other chest pain Category: Medical Code(s): R07.9 - Chest pain, unspecified (8) Palpitations Status: Acute Category: Medical Code(s): R00.2 - Palpitations (9) Anemia Status: Acute Category: Medical Code(s): D64.9 - Anemia, unspecified (10) Renal insufficiency Status: Acute Category: Medical Code(s): N28.9 - Disorder of kidney and ureter, unspecified - Assessment and plan all Dx Assessment and Plan for all problems:: Patient is ready for discharge back to [place]. We will continue with Cardizem at 180 mg daily. <Moncho Mims - Last Filed: 09/28/20 08:59> Internal Medicine - PN: Subj *Date: 09/28/20 *Time: 08:59 Exam Vital signs and Labs for Last 24 Hours: Temp Pulse Resp BP Pulse Ox 98.2 F 70 15 160/80 H 94 L 09/28/20 07:48 09/28/20 07:48 09/28/20 07:48 09/28/20 07:48 09/28/20 07:4
--- NOTE | 2020-09-28 09:37 | HMH.DCSUM ---
General - General Admission date:: 09/27/20 Discharge date: 09/28/20 HPI HPI: Ms. Silva is an 85-year-old female with a history of hypercholesterolemia, hypertension, depression, glaucoma, neuropathy, renal insufficiency, anemia, endometrial cancer, paroxysmal atrial fibrillation, lumbar disc herniation, anxiety, and bowel obstruction requiring surgery at 12/16/2019 who presented to [facility] emergency room after noticing her heart fluttering resulting in not feeling well. She stated she did not have chest pain and was not short of breath but just felt hot all over. She stated the irregular heartbeat started after she went to the bathroom around 12 midnight. She called her daughter and was brought to the emergency room for evaluation. In the emergency room she was found to be in atrial fibrillation with a rapid response. She was given a diltiazem bolus and started on a drip. She was then admitted for further evaluation, treatment, and monitoring. Laboratory data on admission showed a hemoglobin of 12.1 hematocrit of 35.7. Blood chemistries showed a sodium of 133, potassium 4.3 and normal renal function. Troponin I's noted at 0.01 and 0.11. BNP was 301. TSH was 3.87. Liver function studies were normal. She also had the following imaging: #[address] showed global brain atrophy and chronic white matter ischemic changes present with no acute intracranial abnormality. #2Chest x-ray revealed pulmonary hyperinflation suspicious for COPD. No convincing acute process identified. The same AM after admission she converted to sinus rhythm in the 70s. She was sitting up in the bed eating breakfast. She denied chest pain and shortness of breath. She was conversant. Daughter was at bedside. Hospital Course Hospital Course: On admission patient was started on a Cardizem drip after a bolus. She converted from atrial fibrillation to sinus rhythm between 5 and 6 AM after arrival to her room at 4 AM. She remained in sinus rhythm throughout her stay. Cardizem drip was weaned and p.o. Cardizem initiated and increased to 180 mg p.o. Patient continually denied chest pain and shortness of breath. She was out of bed to the bedside commode without difficulty. She ate well without problems. She voided QS. On 09/28/2020 patient was anxious to return back to [place]. She had slept well. She remained in sinus rhythm without ectopy. On 09/28/2020 patient was discharged back to [facility] for ongoing care. Cardizem will remain at 180 mg p.o. daily. Blood pressure was somewhat elevated this a.m. but she had not received her medication as yet. She will no longer need fingersticks for blood sugar evaluation. She can continue with her normal activity and her normal diet. Medication as per medication reconciliation sheet. See data for specific test and lab results. Objective Vital signs: Temp Pulse Resp BP Pulse Ox 98.2 F 70 15 160/80 H 94 L 09/28/20 07:48 09/28/20 07:48 09/28/20 07:48 09/28/20 07:48 09/28/20 07:48 Narrative: Exam Vital signs and Labs for Last 24 Hours: Temp Pulse Resp BP Pulse Ox 98.2 F 70 15 160/80 H 94 L 09/28/20 07:48 09/28/20 07:48 09/28/20 07:48 09/28/20 07:48 09/28/20 07:48 Laboratory Results - last 24 hr 09/27/20 08:42: Troponin I 0.20 H I & O for Last 24 hours: Intake & Output 09/25/20 09/26/20 09/27/20 09/28/20 11:59 11:59 11:59 11:59 Intake Total 480 / 480 480 / 480 Output Total 500 / 500 1550 / 1550 Balance -20 / -20 -1070 / -1070 Weight 127 lb 6.4 oz 126 lb - Constitutional no acute distress Comments: Sitting up in the bed and appears comfortable. - *Routine Respiratory Exam Present: CTA bilaterally (Anteriorly and posteriorly) - *Routine Cardiovascular Exam Present: RRR (Monitor showing sinus rhythm in the 70s) - *Routine Abdominal Exam Present: soft, normoactive bowel sounds. Absent: tend
== END 2020-09-28 11:30 | DRG 310 ==
LOC: ER 02:36 → ICU 03:34
PROVIDERS: Admitting Provider Family Medicine; Emergency Provider Emergency Medicine; PCP Family Medicine; Visit Provider Family Medicine
DX: I48.0 Paroxysmal atrial fibrillation (principal); Z20.822 Contact with and (suspected) exposure to COVID-19; Z79.01 Long term (current) use of anticoagulants; I25.10 Atherosclerotic heart disease of native coronary artery without angina pectoris; I10 Essential (primary) hypertension; K21.9 Gastro-esophageal reflux disease without esophagitis; E78.5 Hyperlipidemia, unspecified; M51.36 Other intervertebral disc degeneration, lumbar region; F41.9 Anxiety disorder, unspecified; Z79.899 Other long term (current) drug therapy
CPT/HCPCS: 36415; 70450; 71045; 80053; 83880; 84436; 84443; 84484; 85025; 93005; 96365; 99284; U0003

== ENCOUNTER → 2020-12-27 16:06 | Outpatient (CLI) | payer MEDICARE, OTHER, SELFPAY ==
[2020-12-27 16:37] LABS: Basophils # 0.1 K/mm3 (0-0.2); Basophils % 0.9 % (0.1-2.0); Eosinophils # 0.1 K/mm3 (0.0-0.4); Eosinophils % 0.8 % (0.1-12.0); Hemoglobin 13.2 g/dL (12.2-16.2); Lymphocytes # 1.1 K/mm3 (0.7-4.5); Lymphocytes % 8.5 % (10-50); Mean Corpuscular HGB Conc 32.9 g/dL (31.8-35.4); Mean Corpuscular Hemoglobin 29.6 pg (27.0-31.2); Mean Corpuscular Volume 89.9 fl (81-99); Mean Platelet Volume 8.1 fl (7.4-10.4); Monocytes # 0.4 K/mm3 (0.1-1.0); Monocytes % 3.1 % (1.7-9.3); Neutrophils # 11.2 K/mm3 (1.8-7.8); Neutrophils % 86.8 % (37.0-80.0); Platelet Count 305 K/mm3 (142-424); Red Blood Count 4.45 M/mm3 (4.20-5.40); Red Cell Distribution Width 13.2 % (11.5-17.5); White Blood Count 12.9 K/mm3 (4.8-10.8)
[2020-12-27 16:39] LABS: MANUAL DIFFERENTIAL MANUAL DIFFERENTIAL (MANUAL DIFF)
[2020-12-27 17:53] LABS: Anion Gap 13.1 mEq/L (5-15); Blood Urea Nitrogen 15 mg/dl (7-17); Calcium 9.2 mg/dl (8.4-10.2); Carbon Dioxide 30 mmol/L (22.0-30.0); Chloride 96 mmol/L (98-107); Estimated Glomerular Filt Rate 95 ml/min (>60); GFR (African American) 115 ML/MIN (>60); Glucose 142 mg/dl (74-100); Potassium 4.1 mmoL/L (3.5-5.1); Sodium 135 mmol/L (136-145)
[2020-12-27 19:08] LABS: Eosinophils % 1 % (0-3); Lymphocytes % 10 % (10-50); Monocytes % 6 % (2-9); Myelocytes % 1 (0-1); Neutrophils % 81 % (42-76); Platelet Estimate Normal; Total Cells Counted 100
== END ==
PROVIDERS: Visit Provider Family Medicine
DX: I48.91 Unspecified atrial fibrillation (principal); D64.9 Anemia, unspecified
CPT/HCPCS: 80048; 85007; 85025

== ENCOUNTER 2021-06-10 02:30 | Emergency (ER) | payer MEDICARE, OTHER, SELFPAY ==
[2021-06-10] VITALS (7 sets, daily range): BP systolic 132–162; BP diastolic 75–90; PULSE 73–134; RESP 12–18; TEMP 36.4–36.6; O2SAT 97–100; BMI 30.1
--- NOTE | 2021-06-10 02:32 | ECG_ITS ---
APPROVED REPORT Exam: Resting ECG HR:138 bpm ECG Measurements Heart Rate 138 AXES QRSd 103 QRS 46 QT 219 T 233 QTc 300 Conclusion ATRIAL FIBRILLATION WITH RAPID VENTRICULAR RESPONSE NONSPECIFIC ST & T-WAVE ABNORMALITY ABNORMAL ECG UNCONFIRMED REPORT Electronically signed by : Talat Fox MD 06/10/2021 09:56:00
[2021-06-10 03:16] LABS: Basophils # 0.2 K/mm3 (0-0.2); Basophils % 3.7 % (0.1-2.0); Eosinophils # 0.1 K/mm3 (0.0-0.4); Eosinophils % 1.9 % (0.1-12.0); Hematocrit 41.7 % (37.0-47.0); Hemoglobin 14.5 g/dL (12.2-16.2); Lymphocytes # 1.5 K/mm3 (0.7-4.5); Lymphocytes % 28.7 % (10-50); Mean Corpuscular HGB Conc 34.8 g/dL (31.8-35.4); Mean Corpuscular Hemoglobin 31.2 pg (27.0-31.2); Mean Corpuscular Volume 89.6 fl (81-99); Mean Platelet Volume 7.6 fl (7.4-10.4); Monocytes # 0.4 K/mm3 (0.1-1.0); Neutrophils # 3.1 K/mm3 (1.8-7.8); Neutrophils % 58.7 % (37.0-80.0); Platelet Count 334 K/mm3 (142-424); Red Blood Count 4.65 M/mm3 (4.20-5.40); Red Cell Distribution Width 12.5 % (11.5-17.5); White Blood Count 5.2 K/mm3 (4.8-10.8)
--- NOTE | 2021-06-10 03:47 | HMH.EDCP ---
ED Disposition Clinical Impression: Paroxysmal atrial fibrillation, Rapid atrial fibrillation Chest pain Qualifiers: Chest pain type: precordial pain Qualified Code(s): R07.2 - Precordial pain Disposition: Home, Self-Care Condition on Discharge: Good Instructions: DI for Atrial Fibrillation Additional Instructions: resume ecf orders Referrals: Leodan Rosa MD [Primary Care Provider] - - Critical Care Critical Care Time: No Attestation: On 06/10/21, the high probability of a clinically significant, sudden or life threatening deterioration of the following system(s) required my full and direct attention, intervention and personal management. The time I documented below is in addition to time spent performing reported procedures but includes the following listed in this critical care notation. Medical Decision Making - Medical Records Medical records reviewed: Yes: I reviewed the patient's medical records. - Josh Inquiry Pt receiving controlled substance: No Vital Signs: 06/10/21 02:25 06/10/21 03:17 06/10/21 03:59 Temperature 97.6 F Temperature Source Oral Pulse Rate 80 73 Pulse Rate [Left Radial] 134 H Respiratory Rate 18 14 12 Blood Pressure 147/80 H 157/75 H Blood Pressure [Right Arm] 133/85 Blood Pressure Mean Blood Pressure Mean [Right Arm] 101 02 Sat by Pulse Oximetry 98 100 98 Oxygen Delivery Method Room Air Room Air 06/10/21 04:35 06/10/21 05:00 06/10/21 05:30 Temperature Temperature Source Pulse Rate 80 81 75 Pulse Rate [Left Radial] Respiratory Rate 13 13 Blood Pressure 162/90 H 148/81 H 160/80 H Blood Pressure [Right Arm] Blood Pressure Mean 106 Blood Pressure Mean [Right Arm] 02 Sat by Pulse Oximetry 98 98 98 Oxygen Delivery Method Room Air Room Air Room Air - Lab Data Lab results reviewed: Yes: I reviewed the patient's lab results. Lab Results 06/10/21 03:00: WBC 5.2, RBC 4.65, Hgb 14.5, Hct 41.7, MCV 89.6, MCH 31.2, MCHC 34.8, RDW 12.5, Plt Count 334, MPV 7.6, Neut % (Auto) 58.7, Lymph % (Auto) 28.7, Walsh % (Auto) 7.0, Eos % (Auto) 1.9, Baso % (Auto) 3.7 H, Neut # (Auto) 3.1, Lymph # (Auto) 1.5, Walsh # (Auto) 0.4, Eos # (Auto) 0.1, Baso # (Auto) 0.2 06/10/21 03:35: Sodium 128 L, Potassium 3.1 L, Chloride 90 L, Carbon Dioxide 32 H, Anion Gap 9.1, BUN 10, Creatinine 0.50 L, Estimated Creat Clear 49, Estimated GFR 117, Est GFR ( Amer) 142, Glucose 108 H, Calcium 9.6, Total Bilirubin 0.9, Direct Bilirubin 0.1, Conjugated Bilirubin 0.0, Indirect Bilirubin 0.8, Unconjugated Bilirubin 0.8, AST 32, ALT 34, Alkaline Phosphatase 92, Troponin I < 0.01, Total Protein 7.6, Albumin 4.6, TSH 1.26, Thyroxine (T4) 9.7 06/10/21 05:45: Troponin I < 0.01 Result diagrams: 06/10/21 03:00 06/10/21 03:35 Orders (Tests/Meds): ED MEDICATIONS Generic Name Dose Route Start Last Admin Trade Name Freq PRN Reason Stop Dose Admin Sodium Chloride 1,000 mls @ 999 mls/hr 06/10/21 03:00 06/10/21 02:50 Sod Chlor 0.9% 1000ml Bag IV 06/10/21 04:00 999 mls/hr .Q1H1M COREY Administration Discontinued Medications Generic Name Dose Route Start Last Admin Trade Name Freq PRN Reason Stop Dose Admin Ondansetron HCl 4 mg 06/10/21 02:48 06/10/21 02:49 Ondansetron 4mg/2ml Vial IV 06/10/21 02:49 4 mg ONCE ONE Administration ORDERS Category Date Time Status CT chest wo con Stat Cat Scan 06/10/21 05:44 Taken Chest XR -- portable [XR chest portable] Stat Exams 06/10/21 05:35 Taken Troponin I Q3H Lab 06/10/21 08:45 Ordered - Radiology Data #1 Image(s): Chest Image Reviewed: Yes I reviewed the patient's radiology image Preliminary Findings: Normal/NAD (nonspecific) - CT Data CT Scan: Chest Time Received: 06:[address] Reviewed: Yes: I have reviewed the patient's CT results Preliminary Findings: Abnormal (reading pending ) - ECG Data Tracing #1 Arrhythmias present: afib Ischemic changes: non-specific S
[2021-06-10 03:50] LABS: Alanine Aminotransferase 34 U/L (12-78); Albumin Level 4.6 g/dl (3.5-5.0); Alkaline Phosphatase 92 U/L (38-126); Anion Gap 9.1 mEq/L (5-15); Aspartate Amino Transferase 32 U/L (14-36); Bilirubin,Direct 0.1 mg/dl (0.0-0.4); Bilirubin,Indirect 0.8 mg/dL (0.0-0.9); Bilirubin,Total 0.9 mg/dl (0.2-1.3); Bilirubin,Unconjugated 0.8 mg/dL (0.0-1.1); Blood Urea Nitrogen 10 mg/dl (7-17); Calcium 9.6 mg/dl (8.4-10.2); Carbon Dioxide 32 mmol/L (22.0-30.0); Chloride 90 mmol/L (98-107); Creatinine Clearance Estimated 49 mL/min (50-200); Estimated Glomerular Filt Rate 117 ml/min (>60); GFR (African American) 142 ML/MIN (>60); Glucose 108 mg/dl (74-100); Potassium 3.1 mmoL/L (3.5-5.1); Sodium 128 mmol/L (136-145); Total Protein,Serum 7.6 g/dl (6.3-8.2)
[2021-06-10 04:07] LABS: T4 (Thyroxine) 9.7 ug/dl (5.53-11.0)
[2021-06-10 04:21] LABS: Thyroid Stimulating Hormone 1.26 uIU/mL (0.465-4.68)
[2021-06-10 04:30] LABS: Troponin I < 0.01 ng/ml (0.00-0.034)
--- NOTE | 2021-06-10 05:20 | ECG_ITS ---
APPROVED REPORT Exam: Resting ECG HR:72 bpm ECG Measurements Heart Rate 72 AXES NC 180 P 83 QRSd 101 QRS 72 QT 389 T 66 QTc 413 Conclusion SINUS RHYTHM NORMAL ECG UNCONFIRMED REPORT Electronically signed by : Talat Fox MD 06/10/2021 16:19:53
--- NOTE | 2021-06-10 05:35 | XR_ITS ---
PROCEDURE INFORMATION: Exam: XR Chest Exam date and time: 06/10/2021 6:00 AM Age: 85 years old Clinical indication: Shortness of breath; Additional info: Cp TECHNIQUE: Imaging protocol: XR of the chest. Views: 1 view. COMPARISON: CT CHEST WO CON 06/10/2021 5:49 AM FINDINGS: Lungs: Mild linear atelectasis/fibrosis. No focal consolidation. Old granulomatous disease. Pleural spaces: Unremarkable. No pleural effusion. No pneumothorax. Heart/Mediastinum: Heart size likely normal given AP projection. Vasculature: Vascular calcifications. Bones/joints: Osteoarthritic changes. Other findings: Make IMPRESSION: No acute process.
--- NOTE | 2021-06-10 05:44 | CT_ITS ---
PROCEDURE INFORMATION: Exam: CT Chest Without Contrast; Diagnostic Exam date and time: 06/10/2021 5:49 AM Age: 85 years old Clinical indication: Shortness of breath; Additional info: Shortness of air and cp TECHNIQUE: Imaging protocol: Diagnostic computed tomography of the chest without contrast. Radiation optimization: All CT scans at this facility use at least one of these dose optimization techniques: automated exposure control; mA and/or kV adjustment per patient size (includes targeted exams where dose is matched to clinical indication); or iterative reconstruction. COMPARISON: CR XR CHEST PORTABLE 09/27/2020 1:10 AM FINDINGS: Lungs: Mild nodular tree-in-bud type opacities bilaterally, compatible with small airways disease. No dense focal consolidation. Mild nonspecific ground-glass type opacities bilaterally. A mild infectious/inflammatory process could be considered, but findings are likely at least in part due to linear atelectasis/fibrosis. Calcified lung nodules , compatible with old granulomatous disease. There are some small lung nodules which do not contain clear calcifications including a 5 mm BARRY nodule and an 8 mm LLL nodule. Pleural spaces: Unremarkable. No pneumothorax. No pleural effusion. Heart: Trace pericardial effusion. Dense vascular calcifications including coronary artery calcifications. Lymph nodes: Calcified mediastinal/hilar lymph nodes, compatible with old granulomatous disease. Aorta: No aortic aneurysm. Diaphragm: Small hiatal hernia. Liver: Calcified hepatic granulomata. 2.6 cm right hepatic cyst. Spleen: Calcified splenic granulomata. Bones/joints: No evidence of an acute fracture. Moderate spondylosis. Soft tissues: Unremarkable. IMPRESSION: 1. Mild nodular tree-in-bud type opacities bilaterally, compatible with small airways disease. 2. Mild nonspecific ground-glass type opacities bilaterally. A mild infectious/inflammatory process could be considered, but findings are likely at least in part due to linear atelectasis/fibrosis. 3. Old granulomatous disease. 4. There are some small lung nodules which do not contain clear calcifications including a 5 mm BARRY nodule and an 8 mm LLL nodule. Recommend follow-up. 5. Coronary artery calcifications. 6. Please see the body of the report for additional findings. For patients at low risk (minimal or absent history of smoking and of other known risk factors), recommend CT Chest at 3-6 months, then consider CT Chest at 18-24 months. For patients at high risk (history of smoking or of other known risk factors), recommend CT Chest at 3-6 months, then CT Chest at 18-24 months. (Reference: Garrison) REFERENCES: Garrison Brown, et al. Guidelines for Management of Incidental Pulmonary Nodules Detected on CT Images: From the Fleischner Society 2017. Radiology. 2017;284(1):228-243.
[2021-06-10 06:14] LABS: Troponin I < 0.01 ng/ml (0.00-0.034)
== END 2021-06-10 06:57 | disposition home or self-care (01) ==
PROVIDERS: Emergency Provider Emergency Medicine; PCP Family Medicine
DX: I48.0 Paroxysmal atrial fibrillation (principal); K21.9 Gastro-esophageal reflux disease without esophagitis; E78.5 Hyperlipidemia, unspecified; I10 Essential (primary) hypertension; I25.10 Atherosclerotic heart disease of native coronary artery without angina pectoris; F41.9 Anxiety disorder, unspecified; Z79.899 Other long term (current) drug therapy
CPT/HCPCS: 71045; 71250; 80048; 80076; 84436; 84443; 84484; 85025; 93005; 96365; 96375; 99284; J2405

== ENCOUNTER → 2021-08-25 14:20 | Outpatient (CLI) | payer MEDICARE, OTHER, SELFPAY | PROVIDERS: PCP Nurse Practitioner Family; Visit Provider Nurse Practitioner Family | DX: D64.9 Anemia, unspecified (principal) ==

== ENCOUNTER → 2021-08-26 13:56 | Outpatient (CLI) | payer MEDICARE, OTHER, SELFPAY ==
[2021-08-26 14:11] LABS: Basophils # 0.1 K/mm3 (0-0.2); Basophils % 1.7 % (0.1-2.0); Eosinophils # 0.1 K/mm3 (0.0-0.4); Eosinophils % 1.1 % (0.1-12.0); Hemoglobin 12.1 g/dL (12.2-16.2); Lymphocytes # 1.6 K/mm3 (0.7-4.5); Lymphocytes % 21.7 % (10-50); Mean Corpuscular HGB Conc 31.9 g/dL (31.8-35.4); Mean Corpuscular Hemoglobin 30.4 pg (27.0-31.2); Mean Corpuscular Volume 95.5 fl (81-99); Mean Platelet Volume 7.3 fl (7.4-10.4); Monocytes # 0.4 K/mm3 (0.1-1.0); Neutrophils # 5.3 K/mm3 (1.8-7.8); Neutrophils % 70.5 % (37.0-80.0); Platelet Count 397 K/mm3 (142-424); Red Blood Count 3.98 M/mm3 (4.20-5.40); Red Cell Distribution Width 12.6 % (11.5-17.5); White Blood Count 7.5 K/mm3 (4.8-10.8)
[2021-08-26 16:16] LABS: Folate 7.35 ng/mL; Vitamin B12 484 pg/mL (239-931)
[2021-08-26 16:33] LABS: Iron 58 ug/dL (37-170)
== END ==
PROVIDERS: PCP Family Medicine; Visit Provider Family Medicine
DX: I48.0 Paroxysmal atrial fibrillation (principal); I10 Essential (primary) hypertension; E78.5 Hyperlipidemia, unspecified
CPT/HCPCS: 82607; 82746; 83540; 85025

== ENCOUNTER → 2021-08-29 02:25 | Outpatient (CLI) | payer MEDICARE, OTHER, SELFPAY ==
[2021-08-29 02:55] LABS: Occult Blood,Stool Negative (Negative)
[2021-08-29 17:34] LABS: Occult Blood,Stool Negative (Negative)
== END ==
PROVIDERS: PCP Family Medicine; Visit Provider Family Medicine
DX: Z12.11 Encounter for screening for malignant neoplasm of colon (principal)
CPT/HCPCS: 82272; G0328

== ENCOUNTER 2021-09-30 00:56 | Emergency (ER) | payer MEDICARE, OTHER, SELFPAY ==
[2021-09-30 00:55] VITALS: BP 159/77; PULSE 87; RESP 18; TEMP 37.1; O2SAT 100; BMI 24.3
--- NOTE | 2021-09-30 00:58 | XR_ITS ---
PROCEDURE INFORMATION: Exam: XR Chest Exam date and time: 09/30/2021 1:19 AM Age: 86 years old Clinical indication: Cough; Additional info: Covid TECHNIQUE: Imaging protocol: Radiologic exam of the chest. Views: 1 view. COMPARISON: CR XR CHEST PORTABLE 06/10/2021 6:00 AM FINDINGS: Lungs: No focal pulmonary consolidation. Bronchiectasis, best seen in the lung bases. Pleural spaces: No pleural effusion. No pneumothorax. Heart/Mediastinum: No acute findings or cardiomegaly. Bones/joints: No acute findings. IMPRESSION: No acute cardiopulmonary findings.
[2021-09-30 01:05] LABS: Influenza A, PCR Not Detected (NotDetected); Influenza B, PCR Not Detected (NotDetected)
--- NOTE | 2021-09-30 01:06 | ECG_ITS ---
APPROVED REPORT Exam: Resting ECG HR:83 bpm ECG Measurements Heart Rate 83 AXES NH 171 P 84 QRSd 95 QRS 69 QT 380 T 67 QTc 419 Conclusion SINUS RHYTHM NORMAL ECG UNCONFIRMED REPORT Electronically signed by : Talat Fox MD 10/01/2021 09:32:42
--- NOTE | 2021-09-30 01:09 | PC.NURSE ---
RAD at BS
--- NOTE | 2021-09-30 01:11 | HMH.EDGENADL ---
ED Disposition Clinical Impression: COVID Disposition: Home, Self-Care Condition on Discharge: Fair Instructions: DI for COVID-19 (Suspected or Confirmed ) Prescriptions: Nirmatrelvir/Ritonavir [Paxlovid 2X150 mg-100 mg (Eua)] 1 each PO BID 5 Days #10 tab Transmission Status: Received by [facility] #[id number] Referrals: Moncho Mims MD [Primary Care Provider] - - Critical Care Critical Care Time: No Attestation: On 09/30/21, the high probability of a clinically significant, sudden or life threatening deterioration of the following system(s) required my full and direct attention, intervention and personal management. The time I documented below is in addition to time spent performing reported procedures but includes the following listed in this critical care notation. Medical Decision Making - Josh Inquiry Pt receiving controlled substance: No Josh was queried for this patient: No Vital Signs: 09/30/21 00:55 09/30/21 01:30 09/30/21 02:00 Temperature 98.7 F Temperature Source Oral Pulse Rate 84 82 Pulse Rate [Right] 87 Respiratory Rate 18 Blood Pressure 166/83 H 163/86 H Blood Pressure [Right Arm] 159/77 H Blood Pressure Mean [Right Arm] 104 02 Sat by Pulse Oximetry 100 97 94 L Oxygen Delivery Method Room Air Room Air 09/30/21 02:30 09/30/21 03:00 Temperature Temperature Source Pulse Rate 81 80 Pulse Rate [Right] Respiratory Rate Blood Pressure 157/78 H 158/80 H Blood Pressure [Right Arm] Blood Pressure Mean [Right Arm] 02 Sat by Pulse Oximetry 96 95 Oxygen Delivery Method Room Air Room Air - Lab Data Lab results reviewed: Yes: I reviewed the patient's lab results. Lab Results 09/30/21 00:57: VBG pH 7.42 H, VBG pCO2 38.6, VBG pO2 59.7 H, VBG HCO3 24.5, VBG Total CO2 25.7, VBG O2 Saturation 90.9 H, VBG Base Excess 0.0 09/30/21 00:58: SARS-CoV-2 (PCR) Detected A, Influenza A Untype (PCR) Not detected, Influenza Type B (PCR) Not detected 09/30/21 01:07: WBC 4.7 L, RBC 4.02 L, Hgb 12.1 L, Hct 36.6 L, MCV 91.1, MCH 30.0, MCHC 32.9, RDW 12.4, Plt Count 236, MPV 7.6, Neut % (Auto) 75.4, Lymph % (Auto) 9.5 L, [place] % (Auto) 11.3 H, Eos % (Auto) 2.5, Baso % (Auto) 1.4, Neut # (Auto) 3.6, Lymph # (Auto) 0.5 L, [place] # (Auto) 0.5, Eos # (Auto) 0.1, Baso # (Auto) 0.1 09/30/21 01:07: C-Reactive Protein 5.7 H 09/30/21 01:07: Procalcitonin 0.193 09/30/21 01:07: Sodium 126 L, Potassium 3.4 L, Chloride 93 L, Carbon Dioxide 29, Anion Gap 7.4, BUN 8, Creatinine 0.50 L, Estimated Creat Clear 38, Estimated GFR 117, Est GFR ( Amer) 141, Glucose 114 H, Calcium 8.6, Total Bilirubin 0.2, AST 31, ALT 27, Alkaline Phosphatase 130 H, Total Protein 6.6, Albumin 4.0, Globulin 2.6, Albumin/Globulin Ratio 1.5 Result diagrams: 09/30/21 01:07 09/30/21 01:07 Orders (Tests/Meds): ED MEDICATIONS Generic Name Dose Route Start Last Admin Trade Name Freq PRN Reason Stop Dose Admin Lactated Ringer's 1,000 mls @ 999 mls/hr 09/30/21 01:00 09/30/21 01:05 Lactated Ringer's 1000 Ml Bag IV 09/30/21 02:00 999 mls/hr .Q1H1M COREY Administration Discontinued Medications Generic Name Dose Route Start Last Admin Trade Name Freq PRN Reason Stop Dose Admin Ondansetron HCl 4 mg 09/30/21 00:58 09/30/21 01:05 Ondansetron 4mg/2ml Vial IV 09/30/21 00:59 4 mg ONCE ONE Administration Medical Decision Narrative: In review this is a 86-year-old female who presents with COVID symptoms. Hemodynamically stable and nontoxic-appearing. Initial vitals within normal limits and the patient is not hypoxic. Her physical exam is overall unremarkable. I did elect to get laboratory studies as well as a chest x-ray. Laboratory studies were largely unremarkable and her COVID was positive. A chest x-ray was done which does not show any acute findings. Due to her age and risk factors we will give her prescription for Paxlovid. Talk to her about symptomatic care over the next couple
[2021-09-30 01:17] LABS: Basophils # 0.1 K/mm3 (0-0.2); Basophils % 1.4 % (0.1-2.0); Eosinophils # 0.1 K/mm3 (0.0-0.4); Eosinophils % 2.5 % (0.1-12.0); Hematocrit 36.6 % (37.0-47.0); Hemoglobin 12.1 g/dL (12.2-16.2); Lymphocytes # 0.5 K/mm3 (0.7-4.5); Lymphocytes % 9.5 % (10-50); Mean Corpuscular HGB Conc 32.9 g/dL (31.8-35.4); Mean Corpuscular Volume 91.1 fl (81-99); Mean Platelet Volume 7.6 fl (7.4-10.4); Monocytes # 0.5 K/mm3 (0.1-1.0); Monocytes % 11.3 % (1.7-9.3); Neutrophils # 3.6 K/mm3 (1.8-7.8); Neutrophils % 75.4 % (37.0-80.0); Platelet Count 236 K/mm3 (142-424); Red Blood Count 4.02 M/mm3 (4.20-5.40); Red Cell Distribution Width 12.4 % (11.5-17.5); White Blood Count 4.7 K/mm3 (4.8-10.8)
--- NOTE | 2021-09-30 01:19 | PC.NURSE ---
Pt placed in airborne and contact isolation precautions
[2021-09-30 01:30] VITALS: BP 166/83; PULSE 84; O2SAT 97
[2021-09-30 01:34] LABS: C-Reactive Protein 5.7 mg/L (0-4)
[2021-09-30 01:37] LABS: Coronavirus 19, PCR Detected (NotDetected)
[2021-09-30 01:43] LABS: Procalcitonin 0.193 ng/mL (0.0-2.0)
[2021-09-30 01:55] LABS: VBG HCO3 24.5 mmol/L (23-30); VBG Oxygen Saturation 90.9 % (50-70); VBG PCO2 38.6 mmol/L (35-51); VBG PH 7.42 mmol/L (7.31-7.41); VBG PO2 59.7 mmol/L (28-40); VBG Total CO2 25.7 mmol/L (23-27)
[2021-09-30 02:00] VITALS: BP 163/86; PULSE 82; O2SAT 94
[2021-09-30 02:30] VITALS: BP 157/78; PULSE 81; O2SAT 96
[2021-09-30 02:31] LABS: Alanine Aminotransferase 27 U/L (12-78); Albumin/Globulin Ratio 1.5 (1.1-1.8); Alkaline Phosphatase 130 U/L (38-126); Anion Gap 7.4 mEq/L (5-15); Aspartate Amino Transferase 31 U/L (14-36); Bilirubin,Total 0.2 mg/dl (0.2-1.3); Blood Urea Nitrogen 8 mg/dl (7-17); Calcium 8.6 mg/dl (8.4-10.2); Carbon Dioxide 29 mmol/L (22.0-30.0); Chloride 93 mmol/L (98-107); Creatinine Clearance Estimated 38 mL/min (50-200); Estimated Glomerular Filt Rate 117 ml/min (>60); GFR (African American) 141 ML/MIN (>60); Globulin 2.6 g/dL (1.3-3.2); Glucose 114 mg/dl (74-100); Potassium 3.4 mmoL/L (3.5-5.1); Sodium 126 mmol/L (136-145); Total Protein,Serum 6.6 g/dl (6.3-8.2)
[2021-09-30 03:00] VITALS: BP 158/80; PULSE 80; O2SAT 95
--- NOTE | 2021-09-30 03:10 | PC.NURSE ---
Pt updated on expected wait times. No other needs voiced.
--- NOTE | 2021-09-30 03:11 | PC.NURSE ---
Spoke with Radha about speaking with JOHN for expected wait times on scan results.
[2021-09-30 04:03] VITALS: BP 154/78; PULSE 80; RESP 18; TEMP 37.1; O2SAT 97
== END 2021-09-30 04:04 | disposition home or self-care (01) ==
PROVIDERS: Emergency Provider Student in an Organized Health Care Education/Training Program; PCP Family Medicine
DX: U07.1 COVID-19 (principal); Z88.8 Allergy status to other drugs, medicaments and biological substances
CPT/HCPCS: 71045; 80053; 82803; 84145; 85025; 86140; 93005; 96365; 96375; 99284; C9803; J2405; U0003; U0005

== ENCOUNTER 2021-11-20 00:09 | Emergency (ER) | payer MEDICARE, OTHER, SELFPAY ==
[2021-11-20] VITALS (17 sets, daily range): BP systolic 106–173; BP diastolic 62–109; PULSE 77–148; RESP 8–21; TEMP 36.6–36.7; O2SAT 91–100; BMI 20.1; BMI 24.8
--- NOTE | 2021-11-20 00:04 | ECG_ITS ---
APPROVED REPORT Exam: Resting ECG HR:150 bpm ECG Measurements Heart Rate 150 AXES QRSd 94 QRS 72 QT 234 T 248 QTc 320 Conclusion ATRIAL FIBRILLATION WITH RAPID VENTRICULAR RESPONSE ST DEVIATION AND MODERATE T-WAVE ABNORMALITY, CONSIDER INFERIOR ISCHEMIA [-0.1+ mV T-WAVE IN II/aVF] CRITICAL TEST RESULT UNCONFIRMED REPORT Electronically signed by : Talat Fox MD 11/24/2021 16:04:55
--- NOTE | 2021-11-20 00:04 | CT_ITS ---
PROCEDURE INFORMATION: Exam: CT Head Without Contrast Exam date and time: 11/20/2021 12:03 AM Age: 86 years old Clinical indication: Stroke-like symptoms; Altered mental status/memory loss; Generalized numbness/paresthesia; Additional info: Stroke alert TECHNIQUE: Imaging protocol: Computed tomography of the head without contrast. Radiation optimization: All CT scans at this facility use at least one of these dose optimization techniques: automated exposure control; mA and/or kV adjustment per patient size (includes targeted exams where dose is matched to clinical indication); or iterative reconstruction. Other technique: STROKE PROTOCOL was implemented. COMPARISON: CT HEAD/BRAIN WO CON 09/27/2020 12:58 AM FINDINGS: Brain: Normal. No hemorrhage. Age expected involutional change. No mass effect. Cerebral ventricles: No ventriculomegaly. Paranasal sinuses: Visualized sinuses are unremarkable. No fluid levels. Mastoid air cells: Visualized mastoid air cells are well aerated. Bones/joints: Unremarkable. No acute fracture. Soft tissues: Unremarkable. IMPRESSION: No evidence of acute intracranial hemorrhage, mass effect, or edema. ASSESSMENT: ASPECTS ([place] Stroke Program Early CT Score) is 10.
--- NOTE | 2021-11-20 00:09 | PC.NURSE ---
verbal order reveived by Dr. Mcintyre, placed in computer
--- NOTE | 2021-11-20 00:09 | HMH.EDGENADL ---
Discharge Plan Disposition Patient Disposition: Xfer Short-Term Hosp Condition: Fair Chief Complaint: Neuro Symptoms/Deficit Prescriptions Prescriptions: No Action atorvastatin 40 MG tablet 40 mg PO HS gabapentin 300 MG capsule 300 mg PO TID rivaroxaban 20 MG tablet 20 mg PO HS multivitamin 1 EACH tablet 1 each PO DAILY pantoprazole 40 MG tablet,delayed release (DR/EC) 40 mg PO HS ferrous sulfate 325 MG tablet 325 mg PO DAILY timolol maleate 5 ML bottle 1 drp EYE-RIGHT DAILY docusate sodium 100 MG tablet 100 mg PO BID duloxetine 60 MG capsule,delayed release(DR/EC) 60 mg PO DAILY acetaminophen 325 MG tablet 650 mg PO TID PRN (Reason: Pain) polyethylene glycol 3350 17 GM powder in packet 17 gm PO DAILY diltiazem HCl 120 MG capsule,extended release 24 hr 120 mg PO DAILY Clinical Impressions Clinical Impression: Atrial fibrillation with RVR, Acute CVA (cerebrovascular accident) Discharge ED Provider: Josafat Mcintyre General Adult HPI General Chief complaint: Neuro Symptoms/Deficit Stated complaint: H/O AFIB RVR Time Seen by Provider: 11/20/21 00:09 History of Present Illness HPI narrative: Patient is an 86-year-old female past medical history of atrial fibrillation on Xarelto who presents emergency department for evaluation of strokelike symptoms. History is obtained by EMS and patient at bedside. Occurring at approximately 10:45 PM patient was not feeling like herself, slumped onto the floor from her chair, denies striking her head or LOC. She then called her daughter who called EMS. Patient was complaining of not feeling right , difficulty finding her words, left-sided paresthesias. Fingerstick blood glucose was acceptable. IV access was obtained and she was transported here for further evaluation. Patient denies chest pain, abdominal pain, dysuria. Related Data Home Medications Medication Instructions Recorded Confirmed atorvastatin 40 mg tablet 40 mg PO HS Cholesterol 09/26/17 11/20/21 gabapentin 300 mg capsule 300 mg PO TID Pain 09/26/17 11/20/21 rivaroxaban 20 mg tablet 20 mg PO HS Blood thinner 12/12/18 11/20/21 multivitamin 1 each PO DAILY Supplement 02/21/19 11/20/21 acetaminophen 325 mg tablet 650 mg PO TID PRN Pain 09/27/20 11/20/21 docusate sodium 100 mg tablet 100 mg PO BID constipation 09/27/20 11/20/21 duloxetine 60 mg capsule,delayed 60 mg PO DAILY Depression 09/27/20 11/20/21 release ferrous sulfate 325 mg (65 mg 325 mg PO DAILY Supplement 09/27/20 11/20/21 iron) tablet pantoprazole 40 mg tablet,delayed 40 mg PO HS GERD 09/27/20 11/20/21 release polyethylene glycol 3350 17 gram 17 gm PO DAILY constipation 09/27/20 11/20/21 oral powder packet timolol maleate 0.5 % eye drops 1 drp EYE-RIGHT DAILY Glaucoma 09/27/20 11/20/21 diltiazem HCl 120 mg capsule,24 120 mg PO DAILY Heart rhythm 06/10/21 11/20/21 hr,extended release Allergies Allergy/AdvReac Type Severity Reaction Status Date / Time rosuvastatin [From [facility]] Allergy Unknown Verified 09/27/20 04:31 [facility] PFS Social History Smoking Status: Never smoker alcohol intake: never substance use type: denies use current occupational status: retired Travel in the last 8 weeks: None household members: children housing: house current occupational exposures/hazards: No caffeine: Yes ROS Obtained: Yes All systems reviewed & no additional complaints except as documented Physical Exam General General appearance: alert and in no apparent distress Head Head exam: atraumatic and normocephalic Eye Eye exam: Present PERRL and EOMI ENT ENT exam: Present mucous membranes moist Neck Neck exam: Present normal inspection Chest Chest inspection: Present normal inspection and symmetric chest wall rise Respiratory Respiratory exam: Present normal lung sounds bilaterally; Absent respiratory distress Cardiovascular Cardiov
--- NOTE | 2021-11-20 00:13 | XR_ITS ---
PROCEDURE INFORMATION: Exam: XR Chest Exam date and time: 11/20/2021 12:30 AM Age: 86 years old Clinical indication: Other: Afib; Additional info: H/x afib, stroke alert TECHNIQUE: Imaging protocol: Radiologic exam of the chest. Views: 1 view. COMPARISON: CR XR CHEST PORTABLE 09/30/2021 1:19 AM FINDINGS: Lungs: Unremarkable. No consolidation. Pleural spaces: Unremarkable. No pleural effusion. No pneumothorax. Heart/Mediastinum: Unremarkable. No cardiomegaly. Vasculature: Calcified aortic arch without dilation. Bones/joints: Unremarkable. IMPRESSION: No acute cardiopulmonary abnormality.
--- NOTE | 2021-11-20 00:16 | CT_ITS ---
PROCEDURE INFORMATION: Exam: CTA Head With Contrast, Arteriography Exam date and time: 11/20/2021 1:22 AM Age: 86 years old Clinical indication: Stroke-like symptoms; Speech disturbance; Generalized numbness/paresthesia; Additional info: Stroke alert, afib rvr TECHNIQUE: Imaging protocol: Computed tomographic angiography of the head with contrast. Exam focused on the arteries. 3D rendering (Not supervised by radiologist): MIP and/or 3D reconstructed images were created by the technologist. Radiation optimization: All CT scans at this facility use at least one of these dose optimization techniques: automated exposure control; mA and/or kV adjustment per patient size (includes targeted exams where dose is matched to clinical indication); or iterative reconstruction. Contrast material: ISOVUE 370; Contrast volume: 100 ml; Contrast route: INTRAVENOUS (IV); COMPARISON: CT HEAD/BRAIN WO CON 11/20/2021 12:03 AM FINDINGS: ANTERIOR CIRCULATION: Right internal carotid artery: Intracranial segment is patent with no significant stenosis. No aneurysm. Right middle cerebral artery: No occlusion or significant stenosis. No aneurysm. Right anterior cerebral artery: No occlusion or significant stenosis. No aneurysm. Left internal carotid artery: Intracranial segment is patent with no significant stenosis. No aneurysm. Left middle cerebral artery: There is a truncated appearance of a peripheral branch of the superior segment of left middle cerebral artery just medial to the sylvian fissure. Left anterior cerebral artery: No occlusion or significant stenosis. No aneurysm. POSTERIOR CIRCULATION: Right vertebral artery: No occlusion or significant stenosis. No aneurysm. Left vertebral artery: No occlusion or significant stenosis. No aneurysm. Basilar artery: No occlusion or significant stenosis. No aneurysm. Right posterior cerebral artery: No occlusion or significant stenosis. No aneurysm. Left posterior cerebral artery: No occlusion or significant stenosis. No aneurysm. Cavernous Sinus: Patent venous dural sinuses and tributaries. Brain: No definite mass, mass effect, or midline shift. Cerebral ventricles: No ventriculomegaly. Bones/joints: Unremarkable. No acute fracture. Soft tissues: Unremarkable. IMPRESSION: No evidence of large vessel occlusion, but there is truncation of a 3rd order left MCA branch (a branch of the superior segment left MCA) without visible filling defect. This could be acute or chronic. No infarction demonstrated.
--- NOTE | 2021-11-20 00:16 | CT_ITS ---
PROCEDURE INFORMATION: Exam: CTA Neck With Contrast Exam date and time: 11/20/2021 1:22 AM Age: 86 years old Clinical indication: Stroke-like symptoms; Speech disturbance; Generalized numbness/paresthesia; Additional info: Stroke alert, afib rvr TECHNIQUE: Imaging protocol: Computed tomographic angiography of the neck with contrast. 3D rendering (Not supervised by radiologist): MIP and/or 3D reconstructed images were created by the technologist. Radiation optimization: All CT scans at this facility use at least one of these dose optimization techniques: automated exposure control; mA and/or kV adjustment per patient size (includes targeted exams where dose is matched to clinical indication); or iterative reconstruction. Contrast material: ISOVUE 370; Contrast volume: 100 ml; Contrast route: INTRAVENOUS (IV); COMPARISON: CT CERVICAL SPINE WO CON 11/19/2019 4:05 AM FINDINGS: Right common carotid artery: No stenosis. No dissection or occlusion. Right internal carotid artery: Right internal carotid artery demonstrates mild intimal thickening and calcific plaque without significant luminal narrowing (NASCET category 2, less than 50% diameter reduction). Right external carotid artery: No occlusion or stenosis of the origin. Left common carotid artery: No stenosis. No dissection or occlusion. Left internal carotid artery: Left internal carotid artery demonstrates mild intimal thickening and calcific plaque without significant luminal narrowing (NASCET category 2, less than 50% diameter reduction). Left external carotid artery: No occlusion or stenosis of the origin. Right vertebral artery: No stenosis. No dissection or occlusion. Left vertebral artery: No stenosis. No dissection or occlusion. Soft tissues: Normal. No significant soft tissue swelling. Bones/joints: Mild cervical spondylosis without canal stenosis. Patient Lungs: 6 x 4 mm noncalcified nodule noted at the left apex. Lung apices are otherwise clear. IMPRESSION: 1. No evidence of hemodynamically significant stenosis in either carotid or vertebral artery system. Mild plaque noted at each carotid bifurcation with less than 50% diameter reduction. 2. Incidental pulmonary nodule with average diameter 5 mm.For patients at low risk (minimal or absent history of smoking and of other known risk factors), no routine follow-up is indicated. For patients at high risk (history of smoking or of other known risk factors), consider optional CT Chest at 12 months. (Reference: Garrison) REFERENCES: 1. Garrison Brown et al. Guidelines for Management of Incidental Pulmonary Nodules Detected on CT Images: From the Fleischner Society 2017. Radiology. 2017;284(1):228-243. 2. NASCET CRITERIA. The degree of stenosis in the cervical segment of the internal carotid artery is based on NASCET criteria. Normal is no stenosis. Mild is less than 50% stenosis. Moderate is 50-69% stenosis. Severe is 70% to 99% stenosis. Total occlusion is no detectable patent lumen.
[2021-11-20 00:23] LABS: Basophils # 0.1 K/mm3 (0-0.2); Basophils % 1.5 % (0.1-2.0); Eosinophils # 0.1 K/mm3 (0.0-0.4); Eosinophils % 1.5 % (0.1-12.0); Hematocrit 44.1 % (37.0-47.0); Hemoglobin 14.5 g/dL (12.2-16.2); Lymphocytes # 2.4 K/mm3 (0.7-4.5); Lymphocytes % 37.7 % (10-50); Mean Corpuscular HGB Conc 32.9 g/dL (31.8-35.4); Mean Corpuscular Hemoglobin 29.6 pg (27.0-31.2); Mean Corpuscular Volume 89.8 fl (81-99); Mean Platelet Volume 8.8 fl (7.4-10.4); Monocytes # 0.4 K/mm3 (0.1-1.0); Neutrophils # 3.3 K/mm3 (1.8-7.8); Neutrophils % 52.2 % (37.0-80.0); Platelet Count 182 K/mm3 (142-424); Red Blood Count 4.91 M/mm3 (4.20-5.40); Red Cell Distribution Width 13.7 % (11.5-17.5); White Blood Count 6.3 K/mm3 (4.8-10.8)
--- NOTE | 2021-11-20 00:25 | PC.NURSE ---
on phone with virtual radiology.
--- NOTE | 2021-11-20 00:40 | PC.NURSE ---
STROKE ALERT CALLED AT [phone]- BLOOD SUGAR OBTAINED AT [phone] RESULTS 124[address] PT TO CT FOR SCAN. PT TOLERATED WELL.
--- NOTE | 2021-11-20 00:42 | PC.NURSE ---
DAUGHTER AT BEDSIDE.
[2021-11-20 01:01] LABS: Chloride 99 mmol/L (98-107); Sodium 136 mmol/L (136-145)
[2021-11-20 01:02] LABS: Potassium 3.6 mmoL/L (3.5-5.1)
[2021-11-20 01:04] LABS: Alanine Aminotransferase 26 U/L (12-78); Albumin Level 4.5 g/dl (3.5-5.0); Albumin/Globulin Ratio 1.7 (1.1-1.8); Alkaline Phosphatase 117 U/L (38-126); Anion Gap 13.6 mEq/L (5-15); Aspartate Amino Transferase 34 U/L (14-36); Bilirubin,Total 0.7 mg/dl (0.2-1.3); Blood Urea Nitrogen 9 mg/dl (7-17); Carbon Dioxide 27 mmol/L (22.0-30.0); Creatinine Clearance Estimated 39 mL/min (50-200); Estimated Glomerular Filt Rate 117 ml/min (>60); GFR (African American) 141 ML/MIN (>60); Globulin 2.6 g/dL (1.3-3.2); Magnesium 1.8 mg/dl (1.6-2.3); Total Protein,Serum 7.1 g/dl (6.3-8.2)
[2021-11-20 01:05] LABS: Calcium 8.9 mg/dl (8.4-10.2); Glucose 133 mg/dl (74-100)
--- NOTE | 2021-11-20 01:15 | PC.NURSE ---
Pt transported to ct scan, during ct scan it was noted that IV in left ac had infiltrated. MD was immediately notified. Left ac IV discontinued. Left arm elevated above the level of the heart and ice packs were applied per protocol. Extremity is red and swollen. MD assessed extremity. Pulses are still palpable. Patient does not complain of any pain or burning, just tightness.
[2021-11-20 01:45] LABS: Troponin I < 0.01 ng/ml (0.00-0.034)
--- NOTE | 2021-11-20 01:49 | PC.NURSE ---
on the phone with Neuro regarding patient care.
[2021-11-20 02:25] LABS: Influenza A, PCR Not Detected (NotDetected); Influenza B, PCR Not Detected (NotDetected)
--- NOTE | 2021-11-20 02:26 | PC.NURSE ---
[facility] PT ACCEPTED- BY INTERNAL MEDICINE. WAITING ON RETURN CALL FROM DR. FORD IN NEUROLOGY TO DETERMINE IF PATIENT CAN BE TRANSFERRED.
--- NOTE | 2021-11-20 02:35 | PC.NURSE ---
Assisted patient to bedside commode. Patient was assist times one, slightly weak with ambulation. Patient voided 200cc of pale clear urine. Requested a u/a be completed of her urine due to frequent uti's. notified. Patient had soiled herself with urine. Patient was assisted into clean panties and a clean gown. Patient was assisted back into bed and a new 22g IV was placed with no complications. Clean sheets and chux pads were placed on the bed. Patients left arm was again positioned on a pillow above the level of her heart with ice packs placed. Site remains swollen. Skin is intact and non-reddened. Patient was given a warm blanket and call bolanos is within reach. Room clear of debri and daughter is at bedside. Bedside table is clear of clutter.
--- NOTE | 2021-11-20 02:49 | PC.NURSE ---
called [facility] paged Irlanda with Neuro ER Dr speaking with Irlanda at this time
[2021-11-20 02:53] LABS: Coronavirus 19, PCR Detected (NotDetected)
[2021-11-20 02:53] LABS: Microscopic, Urine URINE MICROSCOPIC (MICROSCOPIC)
[2021-11-20 02:57] LABS: Appearance,Urine CLEAR (Clear); Bilirubin,Urine Negative (Negative); Blood, Urine Negative (Negative); Color,Urine YELLOW (Yellow); Glucose,Urine (UA) Negative (Negative); Ketones,Urine Negative (Negative); Leukocyte Esterase,Urine Negative (Negative); Nitrate,Urine Negative (Negative); PH,Urine 7.5 (5.0-8.5); Protein,Urine Negative (Negative); Urobilinogen,Urine 0.2 EU/dl (0.2)
--- NOTE | 2021-11-20 02:59 | PC.NURSE ---
PT ACCEPTED TO [facility] PER DR. APPIAH AND THE STROKE [facility]WORK.
[2021-11-20 03:00] LABS: Amorphous Sediment,Urine Trace /lpf
--- NOTE | 2021-11-20 04:13 | PC.NURSE ---
Called [facility] for transfer to [facility] rm [id number]. Gave report to Henrietta RANGEL
--- NOTE | 2021-11-20 04:50 | PC.NURSE ---
EMS report giving to magaly Jones. Pt voided and assisted to BSC. Then assisted to EMS stretcher
[2021-11-20 04:51] LABS: Troponin I < 0.05 ng/ml (0.00-0.034)
[2021-11-20 08:30] LABS: POC Glucose,Bedside 124 (70-110)
== END 2021-11-20 05:19 | disposition short-term general hospital (02) ==
PROVIDERS: Emergency Provider Emergency Medicine; PCP Family Medicine
DX: U07.1 COVID-19 (principal); I48.20 Chronic atrial fibrillation, unspecified; I63.89 Other cerebral infarction; R47.02 Dysphasia; I11.9 Hypertensive heart disease without heart failure; Z79.01 Long term (current) use of anticoagulants; Z79.899 Other long term (current) drug therapy; Z87.19 Personal history of other diseases of the digestive system; Z86.16 Personal history of COVID-19; E78.5 Hyperlipidemia, unspecified; I25.10 Atherosclerotic heart disease of native coronary artery without angina pectoris
CPT/HCPCS: 70450; 70496; 70498; 71045; 80053; 81001; 82962; 83735; 84484; 85025; 93005; 96365; 96366; 99291; C9803; Q9967; U0003; U0005

== ENCOUNTER 2021-11-27 06:13 | Emergency (ER) | payer MEDICARE, OTHER, SELFPAY ==
[2021-11-27 06:13] VITALS: BP 165/107; PULSE 85; RESP 22; TEMP 36.6; O2SAT 100; BMI 24.8
[2021-11-27 06:16] VITALS: BMI 24.8
--- NOTE | 2021-11-27 06:16 | ECG_ITS ---
APPROVED REPORT Exam: Resting ECG HR:82 bpm ECG Measurements Heart Rate 82 AXES TX 164 P 83 QRSd 92 QRS 71 QT 394 T 59 QTc 433 Conclusion SINUS RHYTHM NONSPECIFIC T-WAVE ABNORMALITY BORDERLINE ECG UNCONFIRMED REPORT Electronically signed by : Talat Fox MD 11/27/2021 16:40:05
--- NOTE | 2021-11-27 06:17 | CT_ITS ---
PROCEDURE INFORMATION: Exam: CT Head Without Contrast Exam date and time: 11/27/2021 6:25 AM Age: 86 years old Clinical indication: Weakness, facial; Additional info: Facial tingling TECHNIQUE: Imaging protocol: Computed tomography of the head without contrast. Radiation optimization: All CT scans at this facility use at least one of these dose optimization techniques: automated exposure control; mA and/or kV adjustment per patient size (includes targeted exams where dose is matched to clinical indication); or iterative reconstruction. COMPARISON: CT HEAD/BRAIN WO CON 11/20/2021 12:03 AM FINDINGS: Brain: Intracranial vascular calcifications are present. Mild generalized intracranial volume loss is present. There is moderate diffuse heterogeneity of the white matter attenuation, consistent with chronic white matter ischemic changes. There is no evidence of acute intracranial hemorrhage. Normal hebert-white differentiation. Cerebral ventricles: Ex-vacuo changes of the ventricles. Paranasal sinuses: Visualized sinuses are unremarkable. No fluid levels. Mastoid air cells: Visualized mastoid air cells are well aerated. Orbital cavities: Bilateral lens replacements noted. Bones/joints: Unremarkable. No acute fracture. Soft tissues: Unremarkable. IMPRESSION: Age-related atrophy and chronic white matter ischemic changes, with no evidence of an acute intracranial abnormality.
--- NOTE | 2021-11-27 06:25 | HMH.EDNEU ---
Discharge Plan Disposition Patient Disposition: Home, Self-Care Chief Complaint: Neuro Symptoms/Deficit Prescriptions Prescriptions: No Action atorvastatin 40 MG tablet 40 mg PO HS gabapentin 300 MG capsule 300 mg PO TID rivaroxaban 20 MG tablet 20 mg PO HS multivitamin 1 EACH tablet 1 each PO DAILY pantoprazole 40 MG tablet,delayed release (DR/EC) 40 mg PO HS ferrous sulfate 325 MG tablet 325 mg PO DAILY timolol maleate 5 ML bottle 1 drp EYE-RIGHT DAILY docusate sodium 100 MG tablet 100 mg PO BID duloxetine 60 MG capsule,delayed release(DR/EC) 60 mg PO DAILY acetaminophen 325 MG tablet 650 mg PO TID PRN (Reason: Pain) polyethylene glycol 3350 17 GM powder in packet 17 gm PO DAILY diltiazem HCl 120 MG capsule,extended release 24 hr 120 mg PO DAILY Referrals Follow up/Referrals: Moncho Mims MD [Primary Care Provider] - See instructions Clinical Impressions Clinical Impression: Hypertension, History of atrial fibrillation, Tingling of left arm and left side of face, Anxiety Instructions Patient Instructions: DI for Numbness/Tingling Discharge ED Provider: Naveen Sanford Neuro HPI General Chief Complaint: Neuro Symptoms/Deficit Stated Complaint: numbness to left lip and hand Time Seen by Provider: 11/27/21 06:26 Mode of Arrival: EMS Source of Information: Patient, Relative and Medical Record Limitations: No Limitations Description of Symptoms (Recalled from ER Triage Doc. by RN): Pt c/o numbness in lips and she thinks her left hand. Pt states she is very anxious. She was seen in this ED last week for same symptoms and was sent to [facility] for a stroke evaluation that she says was negative. [place] Stroke score of 0 at this time. History of Present Illness HPI Narrative: pt with tingling in lips and hand-lt this am with hx of same and was at [facility] about 1 week ago with neg cva eval - has hx of a fib on xarelto - no fever or focal c/o - has hx of anxiety Onset (ago): hour(s) Timing confirmed by: family member Location: left arm History of same: Yes Severity: mild Quality: tingling Context: sudden onset On Anticoagulants: Yes Associated symptoms: denies other symptoms Treatments Prior to Arrival: none Related Data Home Medications Medication Instructions Recorded Confirmed atorvastatin 40 mg tablet 40 mg PO HS Cholesterol 09/26/17 11/20/21 gabapentin 300 mg capsule 300 mg PO TID Pain 09/26/17 11/20/21 rivaroxaban 20 mg tablet 20 mg PO HS Blood thinner 12/12/18 11/20/21 multivitamin 1 each PO DAILY Supplement 02/21/19 11/20/21 acetaminophen 325 mg tablet 650 mg PO TID PRN Pain 09/27/20 11/20/21 docusate sodium 100 mg tablet 100 mg PO BID constipation 09/27/20 11/20/21 duloxetine 60 mg capsule,delayed 60 mg PO DAILY Depression 09/27/20 11/20/21 release ferrous sulfate 325 mg (65 mg 325 mg PO DAILY Supplement 09/27/20 11/20/21 iron) tablet pantoprazole 40 mg tablet,delayed 40 mg PO HS GERD 09/27/20 11/20/21 release polyethylene glycol 3350 17 gram 17 gm PO DAILY constipation 09/27/20 11/20/21 oral powder packet timolol maleate 0.5 % eye drops 1 drp EYE-RIGHT DAILY Glaucoma 09/27/20 11/20/21 diltiazem HCl 120 mg capsule,24 120 mg PO DAILY Heart rhythm 06/10/21 11/20/21 hr,extended release Allergies Allergy/AdvReac Type Severity Reaction Status Date / Time rosuvastatin [From CRESTOR] Allergy Unknown Verified 09/27/20 04:31 Stroke Alert/NIH Score LOC Stroke Alert: No Facial/Visual Best Gaze: Normal Visual: No visual loss Facial Palsy: Normal Motor Motor Response, Left Arm: No drift/Amputation/Fused Motor Response, Right Arm: No drift/Amputation/Fused Motor Response, Left Leg: No drift/Amputation/Fused Motor Response, Right Leg: No drift/Amputation/Fused Sensory/Language Limb Ataxia: Absent Sensory: Normal Best Language: No aphasia Dysarthria: Normal speech, Intubated or Barrier p
--- NOTE | 2021-11-27 06:28 | PC.NURSE ---
Pt to CT at this time
[2021-11-27 06:29] LABS: Basophils % 0.8 % (0.1-2.0); Eosinophils % 0.5 % (0.1-12.0); Hematocrit 41.7 % (37.0-47.0); Hemoglobin 13.8 g/dL (12.2-16.2); Lymphocytes # 2.1 K/mm3 (0.7-4.5); Lymphocytes % 42.7 % (10-50); Mean Corpuscular HGB Conc 33.2 g/dL (31.8-35.4); Mean Corpuscular Hemoglobin 29.4 pg (27.0-31.2); Mean Corpuscular Volume 88.5 fl (81-99); Mean Platelet Volume 7.5 fl (7.4-10.4); Monocytes # 0.3 K/mm3 (0.1-1.0); Monocytes % 5.1 % (1.7-9.3); Neutrophils # 2.5 K/mm3 (1.8-7.8); Neutrophils % 50.8 % (37.0-80.0); Platelet Count 312 K/mm3 (142-424); Red Blood Count 4.71 M/mm3 (4.20-5.40); Red Cell Distribution Width 13.6 % (11.5-17.5)
--- NOTE | 2021-11-27 06:31 | PC.NURSE ---
Spoke to [facility] and they are faxing over d/c summary from her recent stay after transfer from this ED on 11/20.
[2021-11-27 06:32] LABS: Chloride 99 mmol/L (98-107); Potassium 3.8 mmoL/L (3.5-5.1); Sodium 136 mmol/L (136-145)
[2021-11-27 06:33] LABS: Appearance,Urine CLEAR (Clear); Bilirubin,Urine Negative (Negative); Blood, Urine Negative (Negative); Color,Urine YELLOW (Yellow); Glucose,Urine (UA) Negative (Negative); Ketones,Urine Negative (Negative); Leukocyte Esterase,Urine 1+ (Negative); Microscopic, Urine URINE MICROSCOPIC (MICROSCOPIC); Nitrate,Urine Negative (Negative); PH,Urine 7.5 (5.0-8.5); Protein,Urine Negative (Negative); Urobilinogen,Urine 0.2 EU/dl (0.2)
[2021-11-27 06:34] LABS: Blood Urea Nitrogen 6 mg/dl (7-17); Creatinine Clearance Estimated 39 mL/min (50-200); Estimated Glomerular Filt Rate 117 ml/min (>60); GFR (African American) 141 ML/MIN (>60)
[2021-11-27 06:35] LABS: Alanine Aminotransferase 29 U/L (12-78); Albumin Level 4.9 g/dl (3.5-5.0); Albumin/Globulin Ratio 1.8 (1.1-1.8); Alkaline Phosphatase 119 U/L (38-126); Anion Gap 11.8 mEq/L (5-15); Aspartate Amino Transferase 35 U/L (14-36); Bilirubin,Total 0.8 mg/dl (0.2-1.3); Calcium 9.4 mg/dl (8.4-10.2); Carbon Dioxide 29 mmol/L (22.0-30.0); Globulin 2.7 g/dL (1.3-3.2); Glucose 106 mg/dl (74-100); Total Protein,Serum 7.6 g/dl (6.3-8.2)
--- NOTE | 2021-11-27 06:35 | PC.NURSE ---
Pt returning from CT
[2021-11-27 06:44] LABS: Bacteria,Urine Trace /lpf; Squamous Epithelial Cell,Urine Occasional #/hpf (0-5)
--- NOTE | 2021-11-27 07:28 | PC.NURSE ---
family at bedside.
[2021-11-27 08:20] VITALS: BP 188/92; PULSE 70; RESP 16; TEMP 36.6; O2SAT 98
== END 2021-11-27 08:22 | disposition home or self-care (01) ==
PROVIDERS: Emergency Provider Emergency Medicine; PCP Family Medicine
DX: I10 Essential (primary) hypertension (principal); I48.20 Chronic atrial fibrillation, unspecified; R20.0 Anesthesia of skin; F41.9 Anxiety disorder, unspecified; Z86.73 Personal history of transient ischemic attack (TIA), and cerebral infarction without residual deficits; Z79.899 Other long term (current) drug therapy; E78.5 Hyperlipidemia, unspecified; I25.10 Atherosclerotic heart disease of native coronary artery without angina pectoris
CPT/HCPCS: 70450; 80053; 81001; 85025; 87086; 93005; 96374; 96375; 99284

== ENCOUNTER 2022-06-25 01:42 | Observation (INO) | payer MEDICARE, OTHER, SELFPAY ==
[2022-06-25] VITALS (15 sets, daily range): BP systolic 127–185; BP diastolic 75–102; PULSE 68–89; RESP 16–20; TEMP 36.5–36.9; O2SAT 96–98; BMI 24.7; BMI 24.3
--- NOTE | 2022-06-25 01:54 | ECG_ITS ---
APPROVED REPORT Exam: Resting ECG HR:82 bpm ECG Measurements Heart Rate 82 AXES ME 176 P 68 QRSd 96 QRS 34 QT 410 T 35 QTc 448 Conclusion SINUS RHYTHM NORMAL ECG UNCONFIRMED REPORT Electronically signed by : Talat Fox MD 06/25/2022 13:32:31
--- NOTE | 2022-06-25 01:54 | XR_ITS ---
PROCEDURE INFORMATION: Exam: XR Chest Exam date and time: 06/25/2022 2:13 AM Age: 86 years old Clinical indication: Pain; Chest pressure; Additional info: Cp TECHNIQUE: Imaging protocol: Radiologic exam of the chest. Views: 1 view. COMPARISON: CR XR CHEST PORTABLE 11/20/2021 12:30 AM FINDINGS: Lungs: Small calcified right upper lobe granuloma. No consolidation. Calcified right hilar lymph nodes. Pleural spaces: Unremarkable. No pleural effusion. No pneumothorax. Heart/Mediastinum: Unremarkable. No cardiomegaly. Vasculature: Unremarkable. Bones/joints: Unremarkable. IMPRESSION: No acute findings. Findings consistent with prior granulomatous exposure.
--- NOTE | 2022-06-25 01:56 | HMH.EDGENADL ---
Discharge Plan Disposition Patient Disposition: Admitted As Inpatient Condition: Good Chief Complaint: Chest Pain Prescriptions Prescriptions: No Action atorvastatin 40 MG tablet 40 mg PO HS gabapentin 300 MG capsule 600 mg PO TID rivaroxaban 20 MG tablet 20 mg PO HS multivitamin 1 EACH tablet 1 each PO DAILY pantoprazole 40 MG tablet,delayed release (DR/EC) 40 mg PO HS timolol maleate 5 ML bottle 1 drp EYE-RIGHT DAILY docusate sodium 100 MG tablet 100 mg PO BID duloxetine 60 MG capsule,delayed release(DR/EC) 60 mg PO DAILY acetaminophen 325 MG tablet 650 mg PO TID PRN (Reason: Pain) polyethylene glycol 3350 17 GM powder in packet 17 gm PO DAILY diltiazem HCl 120 MG capsule,extended release 24 hr 120 mg PO DAILY Referrals Follow up/Referrals: Moncho Mmis MD [Primary Care Provider] - See instructions Clinical Impressions Clinical Impression: New onset of congestive heart failure, Atrial fibrillation with rapid ventricular response Discharge ED Provider: Herrera Grover [facility] Adult HPI General Chief complaint: Chest Pain Stated complaint: Chest Pain Time Seen by Provider: 06/25/22 01:45 Mode of Arrival: Ambulatory Source of Information: Patient and EMS Limitations: No Limitations Description of Symptoms (Recalled from ER Triage Doc. by RN): Pt arrives to ED via EMS for c/o dizziness, weakness, chest pain, and heart fluttering that started around midnight tonight. Pt has hx of afib. EMS gave 324 asa in route to ED. History of Present Illness HPI narrative: 86yo F presents to the ER via EMS secondary to dizziness, weakness, chest pain and heart fluttering. Reported she developed symptoms when she got up to use the bathroom tonight. Has a history of A-fib. Reports taking all medications as directed. EMS provided 324 of aspirin p.o. On arrival, the patient reports she feels better. Denies any radiation of symptoms. Related Data Home Medications Medication Instructions Recorded Confirmed atorvastatin 40 mg tablet 40 mg PO HS Cholesterol 09/26/17 06/25/22 gabapentin 300 mg capsule 600 mg PO TID Pain 09/26/17 06/25/22 rivaroxaban 20 mg tablet 20 mg PO HS Blood thinner 12/12/18 06/25/22 multivitamin 1 each PO DAILY Supplement 02/21/19 06/25/22 acetaminophen 325 mg tablet 650 mg PO TID PRN Pain 09/27/20 06/25/22 docusate sodium 100 mg tablet 100 mg PO BID constipation 09/27/20 06/25/22 duloxetine 60 mg capsule,delayed 60 mg PO DAILY Depression 09/27/20 06/25/22 release pantoprazole 40 mg tablet,delayed 40 mg PO HS GERD 09/27/20 06/25/22 release polyethylene glycol 3350 17 gram 17 gm PO DAILY constipation 09/27/20 06/25/22 oral powder packet timolol maleate 0.5 % eye drops 1 drp EYE-RIGHT DAILY Glaucoma 09/27/20 06/25/22 diltiazem HCl 120 mg capsule,24 120 mg PO DAILY Heart rhythm 06/10/21 06/25/22 hr,extended release Allergies Allergy/AdvReac Type Severity Reaction Status Date / Time rosuvastatin [From [facility]] Allergy Unknown Verified 09/27/20 04:31 [facility] Disclaimer: The information contained in this section may have been updated after the patient was seen, as this information can be updated by other users. Social History Smoking Status: Never smoker alcohol intake: never substance use type: denies use current occupational status: retired Travel in the last 8 weeks: None household members: children housing: house current occupational exposures/hazards: No caffeine: Yes ROS Obtained: Yes Systems reviewed as appropriate & no additional complaints except as documented Physical Exam General General appearance: alert and in no apparent distress Head Head exam: atraumatic Eye Eye exam: Present normal appearance Neck Neck exam: Present trachea midline Chest Chest inspection: Present normal inspection Respiratory Respiratory exam
--- NOTE | 2022-06-25 02:00 | PC.NURSE ---
RAD at for CXR
[2022-06-25 02:07] LABS: Basophils % 0.5 % (0.1-2.0); Eosinophils # 0.2 K/mm3 (0.0-0.4); Eosinophils % 2.7 % (0.1-12.0); Hematocrit 42.1 % (37.0-47.0); Hemoglobin 13.9 g/dL (12.2-16.2); Lymphocytes # 2.9 K/mm3 (0.7-4.5); Lymphocytes % 39.6 % (10-50); Mean Corpuscular HGB Conc 33.1 g/dL (31.8-35.4); Mean Corpuscular Hemoglobin 28.7 pg (27.0-31.2); Mean Corpuscular Volume 86.7 fl (81-99); Mean Platelet Volume 8.2 fl (7.4-10.4); Monocytes # 0.4 K/mm3 (0.1-1.0); Monocytes % 5.7 % (1.7-9.3); Neutrophils # 3.8 K/mm3 (1.8-7.8); Neutrophils % 51.5 % (37.0-80.0); Platelet Count 296 K/mm3 (142-424); Red Blood Count 4.85 M/mm3 (4.20-5.40); Red Cell Distribution Width 12.9 % (11.5-17.5); White Blood Count 7.3 K/mm3 (4.8-10.8)
[2022-06-25 02:12] LABS: Chloride 101 mmol/L (98-107); Potassium 3.4 mmoL/L (3.5-5.1); Sodium 137 mmol/L (136-145)
[2022-06-25 02:14] LABS: Alanine Aminotransferase 29 U/L (12-78); Aspartate Amino Transferase 31 U/L (14-36); Blood Urea Nitrogen 15 mg/dl (7-17); Creatinine Clearance Estimated 40 mL/min (50-200); Estimated Glomerular Filt Rate 95 ml/min (>60); GFR (African American) 114 ML/MIN (>60)
[2022-06-25 02:15] LABS: Albumin Level 4.6 g/dl (3.5-5.0); Albumin/Globulin Ratio 1.7 (1.1-1.8); Alkaline Phosphatase 87 U/L (38-126); Anion Gap 10.4 mEq/L (5-15); Bilirubin,Total 0.8 mg/dl (0.2-1.3); Calcium 9.1 mg/dl (8.4-10.2); Carbon Dioxide 29 mmol/L (22.0-30.0); Globulin 2.7 g/dL (1.3-3.2); Glucose 124 mg/dl (74-100); Total Protein,Serum 7.3 g/dl (6.3-8.2)
[2022-06-25 02:19] LABS: Troponin I < 0.01 ng/ml (0.00-0.034)
[2022-06-25 02:24] LABS: NT Pro Brain Natriuretic Pep. 597 pg/mL (0-450)
--- NOTE | 2022-06-25 02:45 | PC.NURSE ---
Dr. Ruddy ngo
--- NOTE | 2022-06-25 02:48 | PC.NURSE ---
on phone with dr carter
--- NOTE | 2022-06-25 02:56 | PC.NURSE ---
Patient admitted observation to [address] Fox [address] Dr[address] Mims with new onset CHF.
[2022-06-25 02:58] LABS: Coronavirus 19, PCR Not Detected (NotDetected); Influenza A, PCR Not Detected (NotDetected); Influenza B, PCR Not Detected (NotDetected)
[2022-06-25 03:19] LABS: Microscopic, Urine URINE MICROSCOPIC (MICROSCOPIC)
[2022-06-25 03:21] LABS: Appearance,Urine CLEAR (Clear); Bilirubin,Urine Negative (Negative); Blood, Urine Negative (Negative); Color,Urine STRAW (Yellow); Glucose,Urine (UA) Negative (Negative); Ketones,Urine Negative (Negative); Leukocyte Esterase,Urine Negative (Negative); Nitrate,Urine Negative (Negative); PH,Urine 6.5 (5.0-8.5); Protein,Urine Negative (Negative); Specific Gravity, Urine <= 1.005 (1.005-1.030); Urobilinogen,Urine 0.2 EU/dl (0.2)
--- NOTE | 2022-06-25 03:29 | PC.NURSE ---
AT 0315 RECEIVED REPORT FROM MIRIAM JARAMILLO RN. PATIENT IS A 86 YO FEMALE. ADMISSION DIAGNOSIS: NEW ONSET CHR/AFIB RVR. WILL BE TRANSPORTED BY W/C TO MED SURG.
[2022-06-25 03:35] LABS: RBC,Urine Occasional #/hpf (0-3); Squamous Epithelial Cell,Urine Occasional #/hpf (0-5); Transitional Epi Cells,Urine OCC #/lpf (0-3); WBC,Urine Occasional #/hpf (0-3)
--- NOTE | 2022-06-25 03:55 | PC.NURSE ---
Patient arrived to floor via wheelchair @ [phone]
--- NOTE | 2022-06-25 04:28 | PC.NURSE ---
AT 0330 PATIENT ARRIVED TO THE FLOOR VIA W/C ACCOMPANIED BY MS SHANELLE HER [employer]SEM[employer]. ORIENTED TO ROOM AND EQUIPEMENT. PLACED ON TELE DUE TO NEW DIAGNOSIS CHF AND AFIB RVR.
[2022-06-25 07:53] LABS: Troponin I 0.05 ng/ml (0.00-0.034)
[2022-06-25 08:36] LABS: Basophils % 0.4 % (0.1-2.0); Eosinophils # 0.1 K/mm3 (0.0-0.4); Eosinophils % 1.5 % (0.1-12.0); Hemoglobin 13.3 g/dL (12.2-16.2); Lymphocytes # 1.5 K/mm3 (0.7-4.5); Mean Corpuscular HGB Conc 33.2 g/dL (31.8-35.4); Mean Corpuscular Hemoglobin 29.2 pg (27.0-31.2); Mean Corpuscular Volume 87.9 fl (81-99); Mean Platelet Volume 7.1 fl (7.4-10.4); Monocytes # 0.3 K/mm3 (0.1-1.0); Monocytes % 4.8 % (1.7-9.3); Neutrophils # 3.6 K/mm3 (1.8-7.8); Neutrophils % 66.2 % (37.0-80.0); Platelet Count 245 K/mm3 (142-424); Red Blood Count 4.55 M/mm3 (4.20-5.40); Red Cell Distribution Width 12.8 % (11.5-17.5); White Blood Count 5.5 K/mm3 (4.8-10.8)
--- NOTE | 2022-06-25 08:37 | HMH.PHAINT1 ---
Pharmacy Intervention Comments: MEDICATION RECONCILIATION COMPLETE USING RX BOTTLES AND PHARMACY FILL HISTORY.
[2022-06-25 09:00] LABS: Chloride 100 mmol/L (98-107); Potassium 3.2 mmoL/L (3.5-5.1); Sodium 141 mmol/L (136-145)
[2022-06-25 09:03] LABS: Anion Gap 12.2 mEq/L (5-15); Blood Urea Nitrogen 14 mg/dl (7-17); Carbon Dioxide 32 mmol/L (22.0-30.0); Creatinine Clearance Estimated 39 mL/min (50-200); Estimated Glomerular Filt Rate 95 ml/min (>60); GFR (African American) 114 ML/MIN (>60); Glucose 98 mg/dl (74-100)
[2022-06-25 09:14] LABS: Troponin I 0.05 ng/ml (0.00-0.034)
--- NOTE | 2022-06-25 09:37 | EXP.HP ---
History of Present Illness *Admission Date: 06/25/22 *Reason for visit:: Palpitations *History of present illness: 86 year old female with a history of paroxysmal atrial fibrillation presented to [facility] ER early this morning complaining of a few hour history of palpitations and chest discomfort. Patient states she woke up about midnight to urinate and was symptomatic at that time. Patient states these symptoms are very similar to her previous episodes of a. fib with rapid heart rate. She has a supply of immediate release Cardizem and states she took one last night and waited a couple of hours but did not get resolution to her symptoms. She states her blood pressure has been running a little high lately but otherwise she has felt well/ [facility] Disclaimer: The information contained in this section may have been updated after the patient was seen, as this information can be updated by other users. Medical History (Updated 06/25/22 @ 09:51 by Moncho Mims MD) Anxiety Arrhythmia Atrial fibrillation C1 cervical fracture CAD (coronary artery disease) Colon polyps Congestive heart failure [place] Gallbladder disease History of chest pain Hyperlipidemia Hypertension Palpitations Small bowel obstruction Wrist fracture, left Surgical History (Updated 06/25/22 @ 09:47 by Moncho Mims MD) H/O cataract removal with insertion of prosthetic lens H/O colonoscopy H/O total hysterectomy History of cholecystectomy History of open reduction and internal fixation (ORIF) procedure Previous section [place] teeth extracted Family History (Updated 06/25/22 @ 05:38 by Madeleine Ruelas RN) Colon cancer Brother Heart disease Father Cancer Mother Social History Smoking Status: Never smoker alcohol intake: never substance use type: denies use current occupational status: retired Travel in the last 8 weeks: None household members: children housing: house current occupational exposures/hazards: No caffeine: Yes Review of Systems Constitutional Constitutional: Denies chills and Denies fever(s) Eyes Eyes: Denies blurry vision ENT Ears, Nose, Mouth, and Throat: Reports abnormal hearing *Cardiovascular Cardiovascular: Reports as per HPI *Respiratory Respiratory: Denies cough *Gastrointestinal Gastrointestinal: Denies abdominal pain *Genitourinary Genitourinary: Denies difficulty voiding *Musculoskeletal Musculoskeletal: Denies arthralgias Integumentary/Breasts Skin/Breast: Reports pruritus (scalp) *Neurologic Neurologic: Reports abnormal hearing and Denies confusion Psychiatric Psychiatric: Denies confusion Meds Home Medications and Allergies Home Medications Medication Instructions Recorded Confirmed Type atorvastatin 40 mg tablet 40 mg PO HS Cholesterol 09/26/17 06/25/22 History rivaroxaban 20 mg tablet 20 mg PO QPMWITHMEAL Blood thinner 12/12/18 06/25/22 History multivitamin 1 each PO DAILY Supplement 02/21/19 06/25/22 History docusate sodium 100 mg tablet 100 mg PO BID constipation 09/27/20 06/25/22 History duloxetine 60 mg capsule,delayed 60 mg PO DAILY Depression 09/27/20 06/25/22 History release pantoprazole 40 mg tablet,delayed 40 mg PO HS Reflux/Acid reflux 09/27/20 06/25/22 History release polyethylene glycol 3350 17 gram 17 gm PO DAILY constipation 09/27/20 06/25/22 History oral powder packet diltiazem HCl 120 mg capsule,24 120 mg PO DAILY Heart rhythm 06/10/21 06/25/22 History hr,extended release acetaminophen 650 mg 650 mg PO TIDP PRN Mild Pain 06/25/22 06/25/22 History tablet,extended release (Scale Score 1-4) cyanocobalamin (vitamin B-12) 1,000 mcg PO DAILY Supplement 06/25/22 06/25/22 History 1,000 mcg tablet (Vitamin B-12) gabapentin 600 mg tablet 600 mg PO BID NERVE PAIN 06/25/22 06/25/22 History hydroxyzine HCl 25 mg tablet 25 mg PO BIDP PRN Anxiety 06/25/22 06/25/22 History New Prescriptions to Start
[2022-06-26] VITALS: PULSE 60
[2022-06-26 04:00] VITALS: BP 149/71; PULSE 60; PULSE 63; RESP 17; TEMP 36.8; O2SAT 92; BMI 24.3
[2022-06-26 07:20] LABS: Basophils % 0.6 % (0.1-2.0); Eosinophils # 0.2 K/mm3 (0.0-0.4); Eosinophils % 4.3 % (0.1-12.0); Hematocrit 40.5 % (37.0-47.0); Hemoglobin 13.3 g/dL (12.2-16.2); Lymphocytes # 1.9 K/mm3 (0.7-4.5); Lymphocytes % 38.6 % (10-50); Mean Corpuscular HGB Conc 32.9 g/dL (31.8-35.4); Mean Corpuscular Hemoglobin 29.1 pg (27.0-31.2); Mean Corpuscular Volume 88.4 fl (81-99); Mean Platelet Volume 7.2 fl (7.4-10.4); Monocytes # 0.3 K/mm3 (0.1-1.0); Monocytes % 5.7 % (1.7-9.3); Neutrophils # 2.5 K/mm3 (1.8-7.8); Neutrophils % 50.8 % (37.0-80.0); Platelet Count 251 K/mm3 (142-424); Red Blood Count 4.58 M/mm3 (4.20-5.40)
[2022-06-26 07:47] LABS: Anion Gap 14.9 mEq/L (5-15); Blood Urea Nitrogen 17 mg/dl (7-17); Calcium 8.8 mg/dl (8.4-10.2); Carbon Dioxide 30 mmol/L (22.0-30.0); Chloride 97 mmol/L (98-107); Creatinine Clearance Estimated 39 mL/min (50-200); Estimated Glomerular Filt Rate 95 ml/min (>60); GFR (African American) 114 ML/MIN (>60); Glucose 92 mg/dl (74-100); Potassium 3.9 mmoL/L (3.5-5.1); Sodium 138 mmol/L (136-145)
[2022-06-26 08:00] VITALS: BP 140/77; PULSE 77; RESP 18; TEMP 36.7; O2SAT 96
--- NOTE | 2022-06-26 08:15 | EXP.ACUTE.PN ---
Subjective *Date: 06/26/22 *Time: 08:53 Interval history: Patient states she is feeling well and would like to go home. She is is eating without problems. She denies chest pain, shortness of breath, and heart palpitations. She walks with help with her walker to the bathroom. She does admit to some dizziness. CBC shows a normal hemoglobin hematocrit and white count is 5000. Electrolytes with normal potassium of 3.9. Renal function is normal. Echocardiogram has been completed with pending results. Medical Exam Vital signs and Labs for Last 24 Hours: Vital Signs Temp Pulse Pulse Resp BP Pulse Ox 06/26/22 04:00 60 06/26/22 00:00 60 06/25/22 20:00 70 06/26/22 04:00 98.2 F 63 17 149/71 H 92 L 06/25/22 23:53 98.4 F 74 16 139/82 98 06/25/22 20:00 98.3 F 76 16 169/82 H 98 06/25/22 16:00 76 06/25/22 16:00 98.3 F 82 16 127/79 96 06/25/22 12:00 89 06/25/22 12:00 98.5 F 79 18 140/77 96 Intake and Output 06/25/22 06/26/22 06/26/22 19:59 03:59 11:59 Intake Total 480 / 480 Output Total 200 / 200 Balance 280 / 280 - / 279 - Intake: Intake, Oral Amount 480 / 480 Output: Output, Urine Amount 200 / 200 Other: Number of Unmeasured Voids 1 150 0 Weight 137 lb 1.017 oz Patient Weight 06/26/22 11:59 Weight 137 lb 1.017 oz Laboratory Results - last 24 hr 06/25/22 08:28: Troponin I 0.05 H 06/25/22 08:28: WBC 5.5, RBC 4.55, Hgb 13.3, Hct 40.0, MCV 87.9, MCH 29.2, MCHC 33.2, RDW 12.8, Plt Count 245, MPV 7.1 L, Neut % (Auto) 66.2, Lymph % (Auto) 27.0, [place] % (Auto) 4.8, Eos % (Auto) 1.5, Baso % (Auto) 0.4, Neut # (Auto) 3.6, Lymph # (Auto) 1.5, [place] # (Auto) 0.3, Eos # (Auto) 0.1, Baso # (Auto) 0.0 06/25/22 08:28: Sodium 141, Potassium 3.2 L, Chloride 100, Carbon Dioxide 32 H, Anion Gap 12.2, BUN 14, Creatinine 0.60, Estimated Creat Clear 39, Estimated GFR 95, Est GFR ( Amer) 114, Glucose 98 D, Calcium 9.0 06/26/22 07:05: WBC 5.0, RBC 4.58, Hgb 13.3, Hct 40.5, MCV 88.4, MCH 29.1, MCHC 32.9, RDW 13.0, Plt Count 251, MPV 7.2 L, Neut % (Auto) 50.8, Lymph % (Auto) 38.6, [place] % (Auto) 5.7, Eos % (Auto) 4.3, Baso % (Auto) 0.6, Neut # (Auto) 2.5, Lymph # (Auto) 1.9, [place] # (Auto) 0.3, Eos # (Auto) 0.2, Baso # (Auto) 0.0 06/26/22 07:05: Sodium 138, Potassium 3.9 D, Chloride 97 L, Carbon Dioxide 30, Anion Gap 14.9, BUN 17, Creatinine 0.60, Estimated Creat Clear 39, Estimated GFR 95, Est GFR ( Amer) 114, Glucose 92, Calcium 8.8 I & O for Labs for Last 24 Hours: Intake & Output 06/23/22 06/24/22 06/25/22 06/26/22 11:59 11:59 11:59 11:59 Intake Total 240 / 240 480 / 480 Output Total 0 / 0 202 / 202 Balance 240 / 240 278 / 278 Weight 137 lb 1 oz 137 lb 1.017 oz Constitutional: Present no acute distress Respiratory: Present CTA bilaterally (Anteriorly and posteriorly) Cardiac: Present Regular Rate GI: Present soft and normal bowel sounds; Absent distention, tenderness or guarding Extremities: Absent tenderness, edema or calf tenderness Neuro: Present alert and oriented x 3 Assessment and Plan *Assessment and plan (1) Atrial fibrillation with rapid ventricular response: Status: Acute Category: Medical Code(s): I48.91 - Unspecified atrial fibrillation (2) Hypertension: Status: Chronic Category: Medical Code(s): I10 - Essential (primary) hypertension (3) Hyperlipidemia: Status: Chronic Qualifiers: Hyperlipidemia type: mixed hyperlipidemia Qualified Code(s): E78.2 - Mixed hyperlipidemia Category: Medical Code(s): E78.5 - Hyperlipidemia, unspecified (4) CAD (coronary artery disease): Status: Chronic Qualifiers: Associated angina: without angina Coronary Disease-Associated Artery/Lesion type: [place] artery [place] vs. transplanted heart: [place] heart Qualified Code(s): I25.10 - Atherosclerotic he
--- NOTE | 2022-06-27 13:30 | CARE MANAGER ---
Attempted post-discharge phone interview, no answer.
--- NOTE | 2022-06-28 13:46 | CARE MANAGER ---
Attempted to contact patient related to hospital discharge x 2 and left VM message. Contacted the number on file as well as number provided by daughter at [phone]. JUAN CARLOS Corbett
--- NOTE | 2022-06-28 14:50 | CARE MANAGER ---
Spoke with patient for post-discharge phone interview, no issues noted.
--- NOTE | 2022-06-30 15:54 | EXP.DC.SUM ---
General Admission date:: 06/25/22 Discharge date: 06/26/22 HPI HPI HPI: 86 year old female with a history of paroxysmal atrial fibrillation presented to [facility] ER early this morning complaining of a few hour history of palpitations and chest discomfort. Patient states she woke up about midnight to urinate and was symptomatic at that time. Patient states these symptoms are very similar to her previous episodes of a. fib with rapid heart rate. She has a supply of immediate release Cardizem and states she took one last night and waited a couple of hours but did not get resolution to her symptoms. She states her blood pressure has been running a little high lately but otherwise she has felt well/ Hospital Course Hospital Course Hospital Course: The patient was admitted for further evaluation and treatment. Her heart rate had dropped back to normal in route to the hospital. She was started on irbesartan and an echo was ordered. She was continued on Xarelto and her potassium was replaced. By 06/26/2022 she was feeling well and wanted to go home. She denied any chest pain or shortness of breath and she had been up to the bathroom with her walker. Her potassium normalized and her echo showed an EF of 50%. She remained in normal sinus rhythm and was stable to be discharged home. Irbesartan will be added to her daily medications. Exam Data for Last 24 hours Vital signs and Labs for Last 24 Hours: Temp Pulse Resp BP Pulse Ox 98.1 F 77 18 140/77 96 06/26/22 08:00 06/26/22 08:00 06/26/22 08:00 06/26/22 08:00 06/26/22 08:00 Narrative: Constitutional Constitutional: no acute distress *Routine HEENT Exam Head: Present normocephalic Eye: Present EOMI and PERRL ENT: Present mucous membranes moist *Routine Neck Exam Neck: Present supple; Absent lymphadenopathy *Routine Respiratory Exam Respiratory: Present CTA bilaterally *Routine Cardiovascular Exam Cardiovascular: Present RRR *Routine Abdominal Exam Abdominal: Present soft and normoactive bowel sounds; Absent tenderness *Routine Rectal Exam Rectal:: deferred *Routine Genitalia Exam Genitalia:: deferred *Routine Extremities Exam Extremities: Absent cyanosis, clubbing or edema *Routine Skin Exam Skin: Present warm; Absent rash *Routine Neurological Exam Neurological: Present alert and oriented X3 DS: Diagnosis Discharge Diagnosis (1) Atrial fibrillation with rapid ventricular response: Status: Acute (2) Hypertension: Status: Chronic (3) Hyperlipidemia: Status: Chronic (4) CAD (coronary artery disease): Status: Chronic (5) Palpitations: Status: Acute (6) Hypokalemia: Status: Acute (7) Elevated brain natriuretic peptide (BNP) level: Status: Acute (8) Elevated troponin: Status: Acute Meds Home Medications and Allergies Home Medications Medication Instructions Recorded Confirmed Type atorvastatin 40 mg tablet 40 mg PO HS Cholesterol 09/26/17 06/25/22 History rivaroxaban 20 mg tablet 20 mg PO QPMWITHMEAL Blood thinner 12/12/18 06/25/22 History multivitamin 1 each PO DAILY Supplement 02/21/19 06/25/22 History docusate sodium 100 mg tablet 100 mg PO BID constipation 09/27/20 06/25/22 History duloxetine 60 mg capsule,delayed 60 mg PO DAILY Depression 09/27/20 06/25/22 History release pantoprazole 40 mg tablet,delayed 40 mg PO HS Reflux/Acid reflux 09/27/20 06/25/22 History release polyethylene glycol 3350 17 gram 17 gm PO DAILY constipation 09/27/20 06/25/22 History oral powder packet diltiazem HCl 120 mg capsule,24 120 mg PO DAILY Heart rhythm 06/10/21 06/25/22 History hr,extended release acetaminophen 650 mg 650 mg PO TIDP PRN Mild Pain 06/25/22 06/25/22 History tablet,extended release (Scale Score 1-4) cyanocobalamin (vitamin B-12) 1,000 mcg PO DAILY Supplement 06/25/22 06/25/22 History 1,000 mcg tablet (Vitamin B-12) gabapentin 600 mg tablet 600 mg PO BID NERVE PAIN 06/25/22
== END 2022-06-26 14:24 | disposition home or self-care (01) ==
LOC: ER 02:53 → 2ND 05:33
PROVIDERS: Admitting Provider Internal Medicine Adolescent Medicine; Emergency Provider Family Medicine; PCP Family Medicine; Visit Provider Family Medicine
DX: I48.0 Paroxysmal atrial fibrillation (principal); I11.0 Hypertensive heart disease with heart failure; I25.10 Atherosclerotic heart disease of native coronary artery without angina pectoris; E87.6 Hypokalemia; Z79.01 Long term (current) use of anticoagulants; I50.9 Heart failure, unspecified; Z79.899 Other long term (current) drug therapy; Z20.822 Contact with and (suspected) exposure to COVID-19
CPT/HCPCS: G0378; 36415; 71045; 80048; 80053; 81001; 83880; 84484; 85025; 93005; 93306; 99285; C9803; U0003; U0005

== ENCOUNTER 2023-02-08 13:15 | Emergency (ER) | payer MEDICARE, OTHER, SELFPAY ==
[2023-02-08] VITALS (9 sets, daily range): BP systolic 163–184; BP diastolic 69–90; PULSE 61–76; RESP 16–19; TEMP 36.7; O2SAT 97–99; BMI 32.0
--- NOTE | 2023-02-08 13:27 | CT_ITS ---
FINAL REPORT TECHNIQUE: NASCET technique utilized for stenosis evaluation. Thin section axial images were obtained through the neck after contrast administration per CT angiogram protocol. Multiplanar reconstruction images were obtained from the axial data. Exam was performed using dose reduction technique. CLINICAL HISTORY: AMS, brief unresponsive episode patient stated she broke her neck (C2) years ago but was unsure when this happened. FINDINGS: RIGHT CAROTID: There are [id number] vascular calcifications. No significant stenosis is seen of the cervical common or internal carotid artery. LEFT CAROTID: There are mild vascular calcifications. No significant stenosis seen of the cervical common or internal carotid artery. VERTEBRALS: The vertebrals are patent. No significant stenosis is present. The vertebrals are codominant. IMPRESSION: No significant arterial abnormality. Reviewed, Interpreted and Dictated by Bruno Porras MD Transcribed by Kary Lewis Authenticated and [facility]
--- NOTE | 2023-02-08 13:27 | CT_ITS ---
FINAL REPORT TECHNIQUE: thin section axial CT with and without IV contrast supplemented with multiplanar 3-D reconstruction of the head. This study was performed with techniques to keep radiation doses as low as reasonably achievable, (ALARA)individualized dose reduction techniques using automated exposure control or adjustment of mA and/or kV according to the patient's size were employed. CLINICAL HISTORY: AMS, brief unresponsive episode patient stated she broke her neck (C2) years ago but was unsure when this happened. FINDINGS: HEAD CT: The ventricles are normal in size. There is no evidence of hemorrhage. No masses are identified. No extra-axial fluid is seen. The sinuses are normal. CTA: The cranial circulation is unremarkable. There is no significant stenosis, aneurysm or occlusion. IMPRESSION: No acute process. Reviewed, Interpreted and Dictated by Bruno Porras MD Transcribed by Kary Lewis Authenticated and . [facility]
--- NOTE | 2023-02-08 13:27 | CT_ITS ---
FINAL REPORT TECHNIQUE: Axial CT images were performed through the head. Coronal reformatted images were submitted. This study was performed with techniques to keep radiation doses as low as reasonably achievable (ALARA). Individualized dose reduction techniques using automated exposure control or adjustment of mA and/or kV according to the patient's size were employed. CLINICAL HISTORY: AMS, brief unresponsive episode COMPARISON: 11/27/2021 FINDINGS: There is moderate atrophy with proportionate ventriculomegaly. There are extensive changes of chronic microvascular ischemia. There is no evidence of hemorrhage. There is no mass or edema identified. There is no abnormal extra-axial fluid seen. There is mild mucoperiosteal thickening of the right maxillary sinus. IMPRESSION: Chronic changes without acute intracranial process. Reviewed, Interpreted and Dictated by Bruno Porras MD Transcribed by Kary Lewis Authenticated and [facility]
--- NOTE | 2023-02-08 13:27 | XR_ITS ---
FINAL REPORT CLINICAL HISTORY: AMS COMPARISON: 06/25/2022 FINDINGS: The heart size is normal. The mediastinum is normal. There are mild chronic changes in both lungs. There are no pleural effusions. There is no pneumothorax. There is healed fracture deformity of the right 7th rib posteriorly. IMPRESSION: Mild chronic changes without acute cardiopulmonary process Reviewed, Interpreted and Dictated by Bruon Porras MD Transcribed by Kary Lewis Authenticated and [facility]
[2023-02-08 13:38] LABS: VBG Base Excess 1.3 mmol/L (-2.4-2.3); VBG HCO3 26.9 mmol/L (23-30); VBG Oxygen Saturation 73.8 % (50-70); VBG PCO2 49.5 mmol/L (35-51); VBG PH 7.35 mmol/L (7.31-7.41); VBG PO2 39.6 mmol/L (28-40); VBG Total CO2 28.4 mmol/L (23-27)
[2023-02-08 13:53] LABS: Chloride 100 mmol/L (98-107); Sodium 135 mmol/L (136-145)
--- NOTE | 2023-02-08 13:53 | HMH.EDGENADL ---
Discharge Plan Disposition Patient Disposition: Home, Self-Care Prescriptions Prescriptions: New cefdinir 300 mg capsule 300 mg PO BID 7 Days Qty: 14 0RF No Action atorvastatin 40 MG tablet 40 mg PO HS rivaroxaban 20 MG tablet 20 mg PO QPMWITHMEAL multivitamin 1 EACH tablet 1 each PO DAILY pantoprazole 40 MG tablet,delayed release (DR/EC) 40 mg PO HS docusate sodium 100 MG tablet 100 mg PO BID duloxetine 60 MG capsule,delayed release(DR/EC) 60 mg PO DAILY polyethylene glycol 3350 17 GM powder in packet 17 gm PO DAILY diltiazem HCl 120 MG capsule,extended release 24 hr 120 mg PO DAILY hydroxyzine HCl 25 mg tablet 25 mg PO BIDP PRN (Reason: Anxiety) Patient Comments: TAKE ONE TABLET BY MOUTH TWICE DAILY NEEDED MAY CAUSE DROWSINESS gabapentin 600 mg tablet 600 mg PO BID acetaminophen 650 mg Tablet Extended Release 650 mg PO TIDP PRN (Reason: Mild Pain (Scale Score 1-4)) cyanocobalamin (vitamin B-12) [Vitamin B-12] 1,000 mcg Tablet 1,000 mcg PO DAILY irbesartan 150 mg tablet 150 mg PO DAILY Qty: 30 0RF Referrals Follow up/Referrals: Moncho Mims MD [Primary Care Provider] - See instructions Activity Restrictions/Add. Instructions Additional Instructions/Restrictions: Call your family doctor to establish care for this visit to the emergency department and schedule follow-up within 48 hours to ensure improvement. If you have any worsening of your condition or any other concerning signs or symptoms, return to the emergency department or your primary care doctor for further evaluation. Cefdinir tin daily for 7 days to treat urinary tract infection Clinical Impressions Clinical Impression: Episode of unresponsiveness, Acute UTI Discharge ED Provider: Pramod Young General Adult HPI <Radha Barrera, - Last Filed: 02/08/23 15:16> General Chief complaint: Neuro Symptoms/Deficit Stated complaint: poss stroke Time Seen by Provider: 02/08/23 13:19 Mode of Arrival: EMS Source of Information: Patient and EMS Limitations: No Limitations Description of Symptoms (Recalled from ER Triage Doc. by RN): 87 yo F presents to ED via ambulance. EMS staff reports LKW was 1230. EMS reports pt was sitting at the table eating lunchand slumped over. pt was unresponsive for a brief moment and family states pt was back to baseline by the time that they arrived. History of Present Illness HPI narrative: This patient is an 87-year-old female with a history of hypertension, hyperlipidemia, CAD, atrial fibrillation, renal insufficiency, and CHF presenting to the emergency department for evaluation with concern for an episode of unresponsiveness. According to EMS, who brought the patient in, the patient was eating lunch around 12:30 PM when she slumped over and was briefly unresponsive. Her caregiver was with her and witnessed this episode. Family noted the patient was back to baseline by the time that they arrived. The patient reports that she remembers waking up feeling a little bit sleepy this morning. She took her morning medications, which include hydroxyzine and gabapentin, and she became more tired. She states that she laid down and took a nap, and when she woke up to eat lunch, she just remembers feeling very sleepy. She currently denies any concerns or complaints. Her daughter who is at bedside notes that she is talking little bit slower than usual, but she is otherwise currently at her baseline. No recent illnesses, focal neurologic deficits, or other concerns. Her daughter does note that over the last few weeks, she has had a couple of different episodes where they will try to wake her to get her to eat her meals, and she will briefly be unable to vocalize things. She can move her mouth to respond verbally, however she would not be able to phonate. No other neurologic issues noted. No recent changes in medications noted. Related Data Ho
[2023-02-08 13:56] LABS: Alanine Aminotransferase 27 U/L (12-78); Alkaline Phosphatase 65 U/L (38-126); Aspartate Amino Transferase 41 U/L (14-36); Bilirubin,Total 0.7 mg/dl (0.2-1.3); Blood Urea Nitrogen 16 mg/dl (7-17); Creatinine Clearance Estimated 49 mL/min (50-200); Estimated Glomerular Filt Rate 79 ml/min (>60); GFR (African American) 96 ML/MIN (>60)
[2023-02-08 13:57] LABS: Albumin Level 4.3 g/dl (3.5-5.0); Albumin/Globulin Ratio 1.7 (1.1-1.8); Calcium 8.4 mg/dl (8.4-10.2); Carbon Dioxide 31 mmol/L (22.0-30.0); Globulin 2.5 g/dL (1.3-3.2); Glucose 129 mg/dl (74-100); Total Protein,Serum 6.8 g/dl (6.3-8.2)
--- NOTE | 2023-02-08 13:57 | ECG_ITS ---
APPROVED REPORT Exam: Resting ECG HR:62 bpm ECG Measurements Heart Rate 62 AXES RI 178 P 71 QRSd 95 QRS 52 QT 442 T 46 QTc 448 Conclusion SINUS RHYTHM NORMAL ECG UNCONFIRMED REPORT Electronically signed by : Talat Fox MD 02/09/2023 14:47:27
[2023-02-08 14:01] LABS: Basophils % 0.7 % (0.1-2.0); Eosinophils # 0.1 K/mm3 (0.0-0.4); Eosinophils % 0.9 % (0.1-12.0); Hematocrit 40.4 % (37.0-47.0); Hemoglobin 13.3 g/dL (12.2-16.2); Lymphocytes % 36.9 % (10-50); Mean Corpuscular HGB Conc 32.9 g/dL (31.8-35.4); Mean Corpuscular Hemoglobin 29.6 pg (27.0-31.2); Mean Corpuscular Volume 89.9 fl (81-99); Mean Platelet Volume 7.7 fl (7.4-10.4); Monocytes # 0.3 K/mm3 (0.1-1.0); Monocytes % 4.9 % (1.7-9.3); Neutrophils # 3.1 K/mm3 (1.8-7.8); Neutrophils % 56.6 % (37.0-80.0); Platelet Count 269 K/mm3 (142-424); Red Blood Count 4.49 M/mm3 (4.20-5.40); Red Cell Distribution Width 12.4 % (11.5-17.5); White Blood Count 5.5 K/mm3 (4.8-10.8)
[2023-02-08 14:06] LABS: Activated Partial Thrombo Time 28.2 seconds (22.8-30.6); INR 1.14 (0.9-1.1); Prothrombin Time 12.2 seconds (10.1-12.5)
[2023-02-08 14:09] LABS: Troponin I 0.02 ng/ml (0.00-0.034)
[2023-02-08 14:14] LABS: T4 (Thyroxine) 8.2 ug/dl (5.53-11.0)
[2023-02-08 14:28] LABS: Thyroid Stimulating Hormone 0.54 uIU/mL (0.465-4.68)
[2023-02-08 15:26] LABS: Microscopic, Urine URINE MICROSCOPIC (MICROSCOPIC)
[2023-02-08 15:32] LABS: Appearance,Urine SL CLOUDY (Clear); Bilirubin,Urine Negative (Negative); Blood, Urine Negative (Negative); Color,Urine YELLOW (Yellow); Glucose,Urine (UA) Negative (Negative); Ketones,Urine Negative (Negative); Leukocyte Esterase,Urine 3+ (Negative); Nitrate,Urine Negative (Negative); Protein,Urine 1+ (Negative); Urobilinogen,Urine 0.2 EU/dl (0.2)
[2023-02-08 16:04] LABS: Bacteria,Urine Trace /lpf; WBC,Urine 20-50 #/hpf (0-3)
--- NOTE | 2023-02-08 16:21 | PC.NURSE ---
call made to radiology for update on scan reads, supervisor grading reports scan are locked and being read.
--- NOTE | 2023-02-08 17:00 | PC.NURSE ---
rounded on pt no needs at this time,call light at bs
[2023-02-08 17:19] LABS: Troponin I 0.02 ng/ml (0.00-0.034)
--- NOTE | 2023-02-13 12:48 | PC.NURSE ---
urine results show mixed urogenital raissa, pt dc on 02/08/23 with cefdinir, returned to ER 02/12/23 admitted to 2nd floor recollect urine awaiting urine culture per . aware no further action
== END 2023-02-08 18:02 | disposition home or self-care (01) ==
PROVIDERS: Emergency Medicine; Emergency Provider Emergency Medicine; PCP Family Medicine
DX: R46.4 Slowness and poor responsiveness (principal); I11.0 Hypertensive heart disease with heart failure; I50.9 Heart failure, unspecified; E78.5 Hyperlipidemia, unspecified; I25.10 Atherosclerotic heart disease of native coronary artery without angina pectoris; I48.0 Paroxysmal atrial fibrillation; N28.9 Disorder of kidney and ureter, unspecified
CPT/HCPCS: 70450; 70496; 70498; 71045; 80053; 81001; 82803; 84436; 84443; 84484; 85025; 85610; 85730; 87086; 93005; 99285; Q9967

== ENCOUNTER 2023-02-12 09:25 | Observation (INO) | payer MEDICARE, OTHER, SELFPAY ==
[2023-02-12] VITALS (14 sets, daily range): BP systolic 161–194; BP diastolic 78–118; PULSE 67–85; RESP 16–20; TEMP 36.6–36.9; O2SAT 91–100; BMI 26.6; BMI 26.8
--- NOTE | 2023-02-12 09:34 | ECG_ITS ---
APPROVED REPORT Exam: Resting ECG HR:78 bpm ECG Measurements Heart Rate 78 AXES AL 169 P 74 QRSd 97 QRS 57 QT 386 T 43 QTc 420 Conclusion SINUS RHYTHM NONSPECIFIC T-WAVE ABNORMALITY BORDERLINE ECG UNCONFIRMED REPORT Electronically signed by : Talat Fox MD 02/12/2023 14:44:29
--- NOTE | 2023-02-12 09:35 | CT_ITS ---
FINAL REPORT TECHNIQUE: Axial CT images were performed through the head. Coronal reformatted images were submitted. This study was performed with techniques to keep radiation doses as low as reasonably achievable (ALARA). Individualized dose reduction techniques using automated exposure control or adjustment of mA and/or kV according to the patient's size were employed. CLINICAL HISTORY: weakness, episodic COMPARISON: 02/08/2023 FINDINGS: There is moderate atrophy with proportional ventriculomegaly. Decreased attenuation is seen in the deep white matter consistent with microvascular ischemic change. 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 The ventricles are normal in size. There is no evidence of hemorrhage. There is no mass or edema identified. There is no abnormal extra-axial fluid seen. The sinuses are well aerated. IMPRESSION: No acute intracranial process. Chronic findings as above. Reviewed, Interpreted and Dictated by Bruno Porras MD Transcribed by Karli Kwan Authenticated and [facility]
[2023-02-12 09:45] LABS: Chloride 102 mmol/L (98-107)
--- NOTE | 2023-02-12 09:45 | PC.NURSE ---
Respiratory notified of VBG order and blood in lab
[2023-02-12 09:46] LABS: Potassium 3.6 mmoL/L (3.5-5.1); Sodium 138 mmol/L (136-145)
[2023-02-12 09:48] LABS: Alanine Aminotransferase 29 U/L (12-78); Alkaline Phosphatase 74 U/L (38-126); Aspartate Amino Transferase 40 U/L (14-36); Bilirubin,Total 0.6 mg/dl (0.2-1.3); Blood Urea Nitrogen 15 mg/dl (7-17); Creatinine Clearance Estimated 45 mL/min (50-200); Estimated Glomerular Filt Rate 79 ml/min (>60); GFR (African American) 96 ML/MIN (>60)
[2023-02-12 09:49] LABS: VBG Base Excess -3.6 mmol/L (-2.4-2.3); VBG HCO3 21.1 mmol/L (23-30); VBG Oxygen Saturation 97.8 % (50-70); VBG PCO2 34.6 mmol/L (35-51); VBG PO2 102.5 mmol/L (28-40); VBG Total CO2 22.2 mmol/L (23-27)
[2023-02-12 09:49] LABS: Albumin Level 4.5 g/dl (3.5-5.0); Albumin/Globulin Ratio 1.7 (1.1-1.8); Anion Gap 10.6 mEq/L (5-15); Calcium 8.6 mg/dl (8.4-10.2); Carbon Dioxide 29 mmol/L (22.0-30.0); Globulin 2.7 g/dL (1.3-3.2); Glucose 102 mg/dl (74-100); Magnesium 1.8 mg/dl (1.6-2.3); Phosphorous 3.6 mg/dl (2.5-4.5); Total Protein,Serum 7.2 g/dl (6.3-8.2)
[2023-02-12 09:52] LABS: Basophils % 0.2 % (0.1-2.0); Eosinophils # 0.1 K/mm3 (0.0-0.4); Eosinophils % 1.5 % (0.1-12.0); Hematocrit 38.8 % (37.0-47.0); Hemoglobin 13.4 g/dL (12.2-16.2); Lymphocytes # 1.7 K/mm3 (0.7-4.5); Lymphocytes % 27.9 % (10-50); Mean Corpuscular HGB Conc 34.4 g/dL (31.8-35.4); Mean Corpuscular Hemoglobin 30.6 pg (27.0-31.2); Mean Platelet Volume 7.2 fl (7.4-10.4); Monocytes # 0.3 K/mm3 (0.1-1.0); Monocytes % 4.7 % (1.7-9.3); Neutrophils # 4.1 K/mm3 (1.8-7.8); Neutrophils % 65.7 % (37.0-80.0); Platelet Count 248 K/mm3 (142-424); Red Blood Count 4.36 M/mm3 (4.20-5.40); Red Cell Distribution Width 12.4 % (11.5-17.5); White Blood Count 6.2 K/mm3 (4.8-10.8)
[2023-02-12 10:00] LABS: Troponin I 0.02 ng/ml (0.00-0.034)
--- NOTE | 2023-02-12 10:05 | PC.NURSE ---
Pt gone to RAD via wheelchair
[2023-02-12 10:10] LABS: Microscopic, Urine URINE MICROSCOPIC (MICROSCOPIC)
[2023-02-12 10:12] LABS: Appearance,Urine CLEAR (Clear); Bilirubin,Urine Negative (Negative); Blood, Urine Negative (Negative); Color,Urine YELLOW (Yellow); Glucose,Urine (UA) Negative (Negative); Ketones,Urine Negative (Negative); Leukocyte Esterase,Urine 1+ (Negative); Nitrate,Urine Negative (Negative); Protein,Urine Negative (Negative); Specific Gravity, Urine 1.015 (1.005-1.030)
--- NOTE | 2023-02-12 10:13 | PC.NURSE ---
Pt returned from RAD
[2023-02-12 10:41] LABS: Bacteria,Urine Trace /lpf
--- NOTE | 2023-02-12 11:08 | PC.NURSE ---
rounded on pt, water given to pt okayed
--- NOTE | 2023-02-12 11:18 | HMH.EDGENADL ---
Discharge Plan Disposition Patient Disposition: Admitted Condition: Fair Discharge ED Provider: Radha Barrera General Adult HPI General Chief complaint: Weakness Stated complaint: weakness Time Seen by Provider: 02/12/23 09:26 Mode of Arrival: EMS Source of Information: Patient, EMS and Medical Record Limitations: No Limitations Description of Symptoms (Recalled from ER Triage Doc. by RN): Pt c/o weakness, trouble moving her legs, and numbness to her bottom lip. Per caregiver, the lip numbness has been present for about a month. Pt was here on , dx with a UTI. States she has been taking her abx except for this morning d/t getting choked up on it . She denies fever or chills. Poor appetite. History of Present Illness HPI narrative: This patient is an 87-year-old female with a history of hypertension, hyperlipidemia, CAD, atrial fibrillation, renal insufficiency, and CHF presented to the emergency department for evaluation with concern for generalized weakness. She states that this morning, she was feeling okay but then after she had breakfast, she had difficulty getting up from the table. She is also had a poor appetite. She complains of lower lip numbness that is been present for approximately month now, and it is bilateral. She has no other focal neurologic symptoms, such as headache, vision changes, unilateral weakness, numbness/tingling otherwise, or other concerns. She also notes no fevers, chills, chest pain, shortness of breath, nausea, vomiting, change in bowel movements, or other issues. On medical record review, I evaluated her here approximately 4 days ago with concern for slumping over while at the breakfast table. At that time, family noted multiple episodes of issues in the morning such as this. I also found that the patient was on gabapentin and hydroxyzine in the morning, as well as multiple other medications. I was concerned this could be potentially related to polypharmacy. At that time, workup was reassuring. Patient had negative stroke workup, but she did have findings consistent with urinary tract infection. She was ultimately deemed to be appropriate for discharge home and was discharged on prescription for cefdinir. Related Data Home Medications Medication Instructions Recorded Confirmed atorvastatin 40 mg tablet 40 mg PO HS Cholesterol 09/26/17 02/12/23 rivaroxaban 20 mg tablet 20 mg PO QPMWITHMEAL Blood thinner 12/12/18 02/12/23 multivitamin 1 each PO DAILY Supplement 02/21/19 02/12/23 docusate sodium 100 mg tablet 100 mg PO BID constipation 09/27/20 02/12/23 duloxetine 60 mg capsule,delayed 60 mg PO DAILY Depression 09/27/20 02/12/23 release pantoprazole 40 mg tablet,delayed 40 mg PO HS Reflux/Acid reflux 09/27/20 02/12/23 release polyethylene glycol 3350 17 gram 17 gm PO DAILY constipation 09/27/20 02/12/23 oral powder packet diltiazem HCl 120 mg capsule,24 120 mg PO DAILY 06/10/21 02/12/23 hr,extended release acetaminophen 650 mg 650 mg PO TIDP PRN mild pain or 06/25/22 02/12/23 tablet,extended release fever cyanocobalamin (vitamin B-12) 1,000 mcg PO DAILY Supplement 06/25/22 02/12/23 1,000 mcg tablet (Vitamin B-12) gabapentin 600 mg tablet 600 mg PO BID 06/25/22 02/12/23 hydroxyzine HCl 25 mg tablet 25 mg PO BIDP PRN Anxiety 06/25/22 02/12/23 irbesartan 300 mg tablet 300 mg PO DAILY 02/12/23 02/12/23 Previous Rx's Medication Instructions Recorded cefdinir 300 mg capsule 300 mg PO BID 7 days #14 caps 02/08/23 Allergies Allergy/AdvReac Type Severity Reaction Status Date / Time rosuvastatin [From [facility]] Allergy Unknown Verified 02/12/23 14:41 [facility] Disclaimer: The information contained in this section may have been updated after the patient was seen, as this information can be updated by other users. Medical History Anxiety Arrhythmia Atrial fibrillation C1 cervical fracture CAD (coronary artery disease
--- NOTE | 2023-02-12 12:06 | XR_ITS ---
FINAL REPORT CLINICAL HISTORY: choking episode COMPARISON: None FINDINGS: The heart size is normal. The mediastinum is normal. There is no focal infiltrate or edema. There are no pleural effusions. There is no pneumothorax. There is a posterior healing right seventh rib fracture. IMPRESSION: No acute cardiopulmonary process Reviewed, Interpreted and Dictated by Bruno Porras MD Transcribed by Kary Lewis Authenticated and [facility]
--- NOTE | 2023-02-12 13:09 | PC.NURSE ---
Dr. Barrera at BS to update pt/visitors on POC
--- NOTE | 2023-02-12 13:11 | PC.NURSE ---
Dr. Barrera speaking with Dr. Mims about possible admission
--- NOTE | 2023-02-12 13:15 | PC.NURSE ---
CARE MANAGEMENT CALLED FOR ADMISSION
--- OUTSIDE RECORDS SUMMARY | 2023-02-12 13:28 | XMS_ITS | Continuity of Care Document ---
Author Name Unknown Organization [address] [place] [address] Address [address] [facility] [address] [place] [address] Phone Care Team Providers Care Oil Well Engineer Name Role Phone Nassar Chet ZAVALA Unavailable Unavailable Allergies, Adverse Reactions, Alerts Substance Reaction Status Criticality rosuvastatin Active No Information Medications Medication Instructions Dosage Effective Dates (start - stop) Status Comments atorvastatin 40 mg tablet - Active diltiazem CD 180 mg capsule,extended release 24 hr - Active metoclopramide 10 mg tablet - Active Xarelto 20 mg tablet - Activ e gabapentin 300 mg capsule - Active duloxetine 60 mg capsule,delayed release - Active Shingrix (PF) 50 mcg/0.5 mL intramuscular suspension, kit - Active diazepam 5 mg tablet - Activ e quetiapine 50 mg tablet - Ac tive hydrochlorothiazide 12.5 mg capsule - Active Problems Condition Type Effective Dates (start - stop) Clini ulices Status Comments No Known Problems Procedures Procedure Date DEBRIDE NAIL 1-5 TRIM NAIL(S)
--- NOTE | 2023-02-12 13:40 | PC.NURSE ---
report called to Brneda RANGEL
--- NOTE | 2023-02-12 13:42 | PC.NURSE ---
Pt assisted to bathroom with 1 person assist. No other needs voiced at this time. Delvin light within reach
[2023-02-12 13:58] LABS: Troponin I 0.02 ng/ml (0.00-0.034)
--- NOTE | 2023-02-12 14:09 | PC.NURSE ---
Nia HOLM at bedside. Aware of patient's hypertension
--- NOTE | 2023-02-12 14:40 | EXP.HP ---
History of Present Illness *Admission Date: 02/12/23 *Reason for visit:: neurologic symptoms *History of present illness: Ms. Silva is an 87-year-old female with a history of hyperlipidemia, hypertension, early dementia, depression, glaucoma, neuropathy, renal insufficiency, anemia, endometrial cancer, osteopenia, atrial fibrillation, lumbar disc herniation, CKD, anxiety, who presented to [facility] emergency room for evaluation of her weakness and episodic neuro symptoms. With assessment in the emergency room patient was found to be afebrile with a high blood pressure ranging from 180/88-161/ 88-177/84 and 182/79. Monitor showed a sinus rhythm. Laboratory data revealed normal white blood cell count with a hemoglobin of 13.4 and a moderate hematocrit of 38.8. Blood chemistry showed blood sugar 102 normal renal function and slightly elevated AST at 40. Troponin I was 0.02. Urinalysis did show esterase 1+. Chest x-ray showed no acute cardiopulmonary process. CT of the head revealed no acute intracranial process with chronic findings. She also had a CTA of the neck which revealed no significant arterial abnormality. CTA of the head revealed no acute process. Patient was also seen in the emergency room last week and treated for UTI with Ceftin and discharged. Since then she has continued to have weakness episodes with difficuty in speaking and inability to walk and move concerning to her daughters.Thus they brought her to [facility] for evaluation with a repeated episode this AM. Urine cultures are still pending At the time of this exam patient is coherent and answers questions appropriately. Some answers are slow. Speech is clear. She denies any chest pain and shortness of breath. [facility] Disclaimer: The information contained in this section may have been updated after the patient was seen, as this information can be updated by other users. Medical History Anxiety Arrhythmia Atrial fibrillation C1 cervical fracture CAD (coronary artery disease) Colon polyps Congestive heart failure Falls Gallbladder disease History of chest pain Hyperlipidemia Hypertension Palpitations Small bowel obstruction Wrist fracture, left Surgical History H/O cataract removal with insertion of prosthetic lens H/O colonoscopy H/O total hysterectomy History of cholecystectomy History of open reduction and internal fixation (ORIF) procedure Previous section [place] teeth extracted Family History Brother Colon cancer Mother Cancer Father Heart disease Social History (Updated 02/12/23 @ 14:56 by Tigist Cary RN) Smoking Status: Never smoker alcohol intake: never substance use type: denies use current occupational status: retired Travel in the last 8 weeks: None household members: children housing: house current occupational exposures/hazards: No caffeine: Yes Review of Systems Constitutional Constitutional: Denies fever(s), Denies frequent falls, Denies headache(s) and Reports weakness Eyes Eyes: Denies change in vision ENT Ears, Nose, Mouth, and Throat: Denies dizziness, Denies otalgia, Denies headache(s), Reports hearing loss, Denies nasal congestion, Denies neck pain, Denies sore throat (throat is dry) and Denies vertigo *Cardiovascular Cardiovascular: Denies chest pain, Denies dyspnea and Denies irregular heart rhythm *Respiratory Respiratory: Denies dyspnea *Gastrointestinal Gastrointestinal: Denies abdominal pain, Denies change in bowel habits, Denies constipation, Denies dyspepsia, Denies hematemesis, Denies loose stools, Reports nausea and Reports vomiting *Genitourinary Genitourinary: Reports difficulty voiding (decrease n UOP) *Musculoskeletal Musculoskeletal: Reports abnormal gait (has episodes where she could not walk), Reports
--- NOTE | 2023-02-12 15:00 | PC.NURSE ---
Per patient's daughter, patient takes hydroxyzine at nighttime. Per patient and daughter's request, hydroxyzine dose will be held til hs
--- NOTE | 2023-02-12 18:37 | PC.NURSE ---
Patient alert and oriented. Hypertensive. Dr. Mims aware. Other vital signs stable. Up with 2 to BR for voids. Denies pain. Daughter at bedside throughout afternoon
[2023-02-13 04:00] VITALS: BP 140/77; PULSE 64; RESP 16; TEMP 36.8; O2SAT 97; BMI 26.6
[2023-02-13 08:00] VITALS: BP 159/86; PULSE 77; RESP 18; TEMP 37.1; O2SAT 99
--- NOTE | 2023-02-13 08:20 | EXP.ACUTE.PN ---
Subjective *Date: 02/13/23 *Time: 08:48 Interval history: Patient is doing well this morning. According to daughters she has eaten a very good breakfast. Her daughter did stay with her during the night. Patient was up several times to the bathroom without any events. She states her legs are weak but they are doing better.Blood pressure is much improved and this morning it is 140/77. Patient was not on telemetry and will be placed on telemetry. Urine cultures are still pending. She states she is voiding QS and without difficulty although sometimes hard to start her stream. Bowels have not moved. She denies chest pain and shortness of breath. Medical Exam Vital signs and Labs for Last 24 Hours: Vital Signs Temp Pulse Pulse Pulse Pulse Pulse Resp 02/13/23 04:00 98.3 F 64 16 02/13/23 06:07 02/13/23 04:44 02/13/23 03:00 02/13/23 01:00 02/12/23 23:00 02/12/23 21:00 02/12/23 20:00 98.4 F 73 18 02/12/23 20:00 02/12/23 20:27 02/12/23 18:33 02/12/23 17:00 02/12/23 17:10 02/12/23 15:00 02/12/23 16:00 97.8 F 71 17 02/12/23 14:06 98.1 F 73 16 02/12/23 13:55 98.3 F 80 18 02/12/23 13:01 20 02/12/23 12:30 83 18 02/12/23 12:00 70 19 02/12/23 11:30 73 17 02/12/23 11:01 70 18 02/12/23 10:30 67 17 02/12/23 10:14 76 74 83 02/12/23 09:25 98.2 F 85 20 BP BP BP BP BP Pulse Ox O2 Del Method 02/13/23 04:00 140/77 97 Room Air 02/13/23 06:07 Room Air 02/13/23 04:44 Room Air 02/13/23 03:00 Room Air 02/13/23 01:00 Room Air 02/12/23 23:00 Room Air 02/12/23 21:00 Room Air 02/12/23 20:00 194/86 H 97 Room Air 02/12/23 20:00 Room Air 02/12/23 20:27 186/78 H 02/12/23 18:33 Room Air 02/12/23 17:00 166/92 H 02/12/23 17:10 Room Air 02/12/23 15:00 Room Air 02/12/23 16:00 175/92 H 100 Room Air 02/12/23 14:06 180/118 H 97 Room Air 02/12/23 13:55 182/98 H Room Air 02/12/23 13:01 183/100 H 02/12/23 12:30 177/88 H 91 L 02/12/23 12:00 189/87 H 95 02/12/23 11:30 187/92 H 96 02/12/23 11:01 182/79 H 98 02/12/23 10:30 175/82 H 98 02/12/23 10:14 180/88 H 189/93 H 161/88 H 02/12/23 09:25 177/84 H 99 Room Air Intake and Output 02/12/23 02/13/23 02/13/23 19:59 03:59 11:59 Intake Total 790 / 790 120 / 910 Output Total 0 / 0 0 / 0 Balance 790 / 790 120 / 910 Intake: Intake, Oral Amount 640 / 640 120 / 760 Intake, Total IV Amount 150 / 150 Levofloxacin/D5w 750 mg/150 ml 150 / 150 750 mg In 150 ml @ 100 mls/hr IV Q24H [facility] Rx#:[id number] Output: Output, Urine Amount 0 / 0 0 / 0 Other: Number of Unmeasured Voids 1 1 Number of Bowel Movements 1 Weight 161 lb 4 oz 159 lb 9.6 oz Patient Weight 02/13/23 11:59 Weight 159 lb 9.6 oz Laboratory Results - last 24 hr 02/12/23 09:26: WBC 6.2, RBC 4.36, Hgb 13.4, Hct 38.8, MCV 89.0, MCH 30.6, MCHC 34.4, RDW 12.4, Plt Count 248, MPV 7.2 L, Neut % (Auto) 65.7, Lymph % (Auto) 27.9, Martin % (Auto) 4.7, Eos % (Auto) 1.5, Baso % (Auto) 0.2, Neut # (Auto) 4.1, Lymph # (Auto) 1.7, Martin # (Auto) 0.3, Eos # (Auto) 0.1, Baso # (Auto) 0.0, Sodium 138, Potassium 3.6, Chloride 102, Carbon Dioxide 29, Anion Gap 10.6, BUN 15, Creatinine 0.70, Estimated Creat Clear 45, Estimated GFR 79, Est GFR ( Amer) 96, Glucose 102 H, Calcium 8.6, Phosphorus 3.6, Magnesium 1.8, Total Bilirubin 0.6, AST 40 H, ALT 29, Alkaline Phosphatase 74, Troponin I 0.02, Total Protein 7.2, Albumin 4.5, Globulin 2.7, Albumin/Globulin Ratio 1.7 02/12/23 09:35: VBG pH 7.40, VBG pCO2 34.6 L, VBG pO2 102.5 H, VBG HCO3 21.1 L, VBG Total CO2 22.2 L, VBG O2 Saturation 97.8 H, VBG Base Excess -3.6 L 02/12/23 09:59: Urine Color Yellow, Urine
--- NOTE | 2023-02-13 09:56 | HMH.OTEV ---
OT Inpatient Evaluation Rehab OT IP Evaluation Start: 02/13/23 08:51 Freq: ONCE Status: Active Protocol: Document 02/13/23 09:47 [facility] (Rec: 02/13/23 09:56 [facility] [id number]) Rehab OT IP Assessment Subjective History Pt oriented x 3 on arrival. Pt agreeable to engage in therapy evaluation. Pt admitted on 02/12/23 due to neurologic symptoms and UTI. Ms. Silva is an 87-year-old female with a history of hyperlipidemia, hypertension, early dementia, depression, glaucoma, neuropathy, renal insufficiency, anemia, endometrial cancer, osteopenia , atrial fibrillation, lumbar disc herniation, CKD, anxiety, who presented to [facility] emergency room for evaluation of her weakness and episodic neuro symptoms. Daughter present during therapy evaluation and supportive of tx. Prior to being in the hospital , pt lived at home alone. However, pt had sitters that would stay with her sunday- sunday and assist with all ADLs and IADLS. Usually on the weekends she did not have sitters, but family would assist as needed. Pt did use a walker during funcitonal transfers. Subjective I want to go home. Objective Patient Orientation Person,Place,Birthday Right Upper Extremity Gross ROM WFL Left Upper Extremity Gross ROM WFL Bed Mobility bed mobility-scooting,bed mobility - supine/sit Assist Level Minimal x 1 (25% assist) Transfer Training Sit/Stand Transfer Assist Level Contact Guard/Hand Hold Rehab OT IP prob,goals,plan Problems Date of Evaluation: 02/13/23 OT IP Problems Bed Mobility,Transfers,Balance ,Self care,Safety Rehab Potential Rehab Potential Good Equipment Needs Assistive Devices Rolling / Wheeled Walker Plan OT intervention Plan Bed
--- NOTE | 2023-02-13 09:59 | HMH.PTEV ---
Physical Therapy Evaluation Rehab PT IP Evaluation Start: 02/13/23 08:50 Freq: ONCE Status: Active Protocol: Document 02/13/23 09:48 [facility] (Rec: 02/13/23 09:59 [facility] [id number]) Subjective/History History History Pt is an 87 y/o female who presented to [facility] ED on with complaint of weakness and neuro signs. Per history & physical note, With assessment in the emergency room patient was found to be afebrile with a high blood pressure ranging from 180/88- 161/ 88-177/84 and 182/79. Monitor showed a sinus rhythm. Laboratory data revealed normal white blood cell count with a hemoglobin of 13.4 and a moderate hematocrit of 38.8. Blood chemistry showed blood sugar 102 normal renal function and slightly elevated AST at 40. Troponin I was 0. 02. Urinalysis did show esterase 1+. Chest x-ray showed no acute cardiopulmonary process. CT of the head revealed no acute intracranial process with chronic findings. She also had a CTA of the neck which revealed no significant arterial abnormality. CTA of the head revealed no acute process. Patient was also seen in the emergency room last week and treated for UTI with Ceftin and discharged. Since then she has continued to have weakness episodes with difficuty in speaking and inability to walk and move concerning to her daughters. Thus they brought her to [facility] for evaluation with a repeated episode this AM. Urine cultures are still pending. Medical History: hyperlipidemia, hypertension, early d
--- NOTE | 2023-02-13 11:36 | SW/DCPLANNER ---
Addendum entered by Kristina Hammer RN 02/15/23 14:46: Faxed clinical/orders to [facility] this morning. [facility] called and stated they can accept referral. Original Note: I spoke w/ this patient and her daughter regarding plans once medically stable for discharge. PT/OT evaluated patient and recommended home w/ home health services and 18/09 sitters. Daughter stated that patient currently has sitters lined up for a majority of the day and will work on filling the weekends. I have provided patient and daughter with [facility] Private Sitters list. Patient/daughter are also agreeable to home health services and prefer to use [facility] at time of discharge. Discharge date is unknown at this time. I will continue to follow up w/ patient, family and MD until medically stable for discharge.
[2023-02-13 12:00] VITALS: PULSE 80
--- NOTE | 2023-02-13 15:49 | ECG_ITS ---
APPROVED REPORT Exam: Resting ECG HR:85 bpm ECG Measurements Heart Rate 85 AXES WV 168 P 68 QRSd 94 QRS 24 QT 318 T 28 QTc 360 Conclusion SINUS RHYTHM WITH OCCASIONAL SUPRAVENTRICULAR PREMATURE COMPLEXES NONSPECIFIC T-WAVE ABNORMALITY BORDERLINE ECG UNCONFIRMED REPORT Electronically signed by : Talat Fox MD 02/14/2023 18:40:36
[2023-02-13 15:54] VITALS: PULSE 90
[2023-02-13 15:59] VITALS: BP 121/72; PULSE 85; RESP 18; TEMP 36.7; O2SAT 100
--- NOTE | 2023-02-13 16:29 | PC.NURSE ---
VS stable and patient remained on room air. IV antibiotics given. Lung sounds clear.
--- NOTE | 2023-02-13 17:59 | PC.NURSE ---
1700 patient presented with right sided facial droop. NIH completed, only deficit is facial droop and slight slurs but still understand sentence. Bilateral strength equal in arms and legs. Dr. Dawkins paged. Charge nurse and front of house manager notified. Dr. Dawkins ordered to still give xarelto and neuro checks every 3 hours and to monitor patient condition
[2023-02-13 20:00] VITALS: BP 161/85; PULSE 80; PULSE 82; RESP 20; TEMP 36.7; O2SAT 97
[2023-02-14] VITALS (8 sets, daily range): BP systolic 152–162; BP diastolic 75–88; PULSE 60–90; RESP 16–20; TEMP 36.4–36.9; O2SAT 95–100; BMI 26.9
--- NOTE | 2023-02-14 08:21 | EXP.ACUTE.PN ---
Subjective *Date: 02/14/23 *Time: 08:51 Interval history: Patient states she feels well other than some chest pain she had this am. She woke up and felt like someone was squeezing her heart. It is some better now. She slept decently well and was able to eat breakfast. Medical Exam Vital signs and Labs for Last 24 Hours: Vital Signs Temp Pulse Pulse Resp BP Pulse Ox O2 Del Method 02/14/23 07:56 97.6 F 73 17 160/86 H 98 Room Air 02/14/23 04:00 98.4 F 64 20 152/81 H 100 Room Air 02/14/23 04:00 80 02/14/23 06:35 Room Air 02/14/23 05:00 Room Air 02/14/23 03:00 Room Air 02/14/23 00:00 98.3 F 70 20 153/76 H 95 02/14/23 00:00 80 02/14/23 00:43 Room Air 02/13/23 20:00 80 02/13/23 22:28 Room Air 02/13/23 21:00 Room Air 02/13/23 20:00 98.1 F 82 20 161/85 H 97 Room Air 02/13/23 20:00 Room Air 02/13/23 18:43 Room Air 02/13/23 17:00 Room Air 02/13/23 15:54 90 02/13/23 15:59 98.0 F 85 18 121/72 100 Room Air 02/13/23 15:00 Room Air 02/13/23 12:00 80 02/13/23 13:10 Room Air 02/13/23 11:00 Room Air 02/13/23 09:00 Room Air Intake and Output 02/13/23 02/14/23 02/14/23 19:59 03:59 11:59 Intake Total 240 / 840 360 / 840 240 / 840 Output Total 200 / 200 0 / 200 0 / 200 Balance 40 / 640 360 / 640 240 / 640 Intake: Intake, Oral Amount 240 / 840 360 / 840 240 / 840 Output: Output, Urine Amount 200 / 200 0 / 200 0 / 200 Other: Number of Unmeasured Voids 2 1 1 Number of Bowel Movements 1 1 Weight 161 lb 6 oz Patient Weight 02/14/23 11:59 Weight 161 lb 6 oz I & O for Labs for Last 24 Hours: Intake & Output 02/11/23 02/12/23 02/13/23 02/14/23 11:59 11:59 11:59 11:59 Intake Total 1150 / 1150 840 / 840 Output Total 0 / 0 200 / 200 Balance 1150 / 1150 640 / 640 Weight 160 lb 159 lb 9.6 oz 161 lb 6 oz Microbiology Reports for the Last 24 Hours: Microbiology 02/12/23 09:59 Urine,Clean Catch Urine Culture - Final Constitutional: Present no acute distress Comment:: Sitting in chair. Daughter is at bedside. Respiratory: Present CTA bilaterally Cardiac: Present Regular Rhythm (Monitor showing sinus rhythm) GI: Present soft and normal bowel sounds; Absent distention, tenderness or guarding Extremities: Present normal inspection; Absent tenderness or edema Neuro: Present alert and oriented x 3 Assessment and Plan *Assessment and plan (1) Hypertension: Status: Chronic Category: Medical Code(s): I10 - Essential (primary) hypertension (2) Episode of unresponsiveness: Status: Acute Category: Medical Code(s): R40.4 - Transient alteration of awareness (3) Acute UTI: Status: Acute Category: Medical Code(s): N39.0 - Urinary tract infection, site not specified (4) Hyperlipidemia: Status: Chronic Qualifiers: Hyperlipidemia type: mixed hyperlipidemia Qualified Code(s): E78.2 - Mixed hyperlipidemia Category: Medical Code(s): E78.5 - Hyperlipidemia, unspecified (5) CAD (coronary artery disease): Status: Chronic Qualifiers: Associated angina: without angina Coronary Disease-Associated Artery/Lesion type: al[place]q artery [place] vs. transplanted heart: algaaciq heart Qualified Code(s): I25.10 - Atherosclerotic heart disease of algaaciq coronary artery without angina pectoris Category: Medical Code(s): I25.10 - Atherosclerotic heart disease of alga[place]q coronary artery without angina pectoris (6) Palpitations: Status: Resolved Category: Medical Code(s): R00.2 - Palpitations (7) Anxiety: Status: Acute Category: Medical Code(s): F41.9 - Anxiety disorder, unspecified (8) Paroxysmal atrial fibrillation: Status: Chronic Category: Medical Code(s): I48.0 - Par
[2023-02-14 09:17] LABS: Creatine Kinase 134 U/L (30-135)
--- NOTE | 2023-02-14 09:19 | ECG_ITS ---
APPROVED REPORT Exam: Resting ECG HR:76 bpm ECG Measurements Heart Rate 76 AXES MS 156 P 74 QRSd 90 QRS 47 QT 392 T 39 QTc 423 Conclusion SINUS RHYTHM NORMAL ECG UNCONFIRMED REPORT Electronically signed by : Talat Fox MD 02/15/2023 19:48:31
[2023-02-14 09:26] LABS: CKMB Relative Index 1.9 U/L (0-4.0); Creatine Kinase MB 2.5 ng/ml (0.0-2.03)
[2023-02-14 09:44] LABS: Troponin I 0.02 ng/ml (0.00-0.034)
--- NOTE | 2023-02-14 17:41 | PC.NURSE ---
Pt is alert and oriented. Neuro checks Q3 completed. Pt has had no issues or complaints this shift. Pt walks to the restroom with 1 assist. Pt lung sounds clear. Abdomen soft and nontender. Pt has been up to the chair throughout the day. Call light in reach.
--- NOTE | 2023-02-15 10:55 | CARE MANAGER ---
Contacted patient related to hospital discharge. Patient states she is doing better. She has her medications and aware to increase one of her previous meds. Her daughter is calling to schedule her follow up appointment. Denies any questions or concerns. JUAN CARLOS Corbett
--- NOTE | 2023-02-20 15:32 | EXP.DC.SUM ---
General Admission date:: 02/12/23 Discharge date: 02/14/23 HPI HPI HPI: Ms. Silva is an 87-year-old female with a history of hyperlipidemia, hypertension, early dementia, depression, glaucoma, neuropathy, renal insufficiency, anemia, endometrial cancer, osteopenia, atrial fibrillation, lumbar disc herniation, CKD, anxiety, who presented to [facility] emergency room for evaluation of her weakness and episodic neuro symptoms. With assessment in the emergency room patient was found to be afebrile with a high blood pressure ranging from 180/88-161/ 88-177/84 and 182/79. Monitor showed a sinus rhythm. Laboratory data revealed normal white blood cell count with a hemoglobin of 13.4 and a moderate hematocrit of 38.8. Blood chemistry showed blood sugar 102 normal renal function and slightly elevated AST at 40. Troponin I was 0.02. Urinalysis did show esterase 1+. Chest x-ray showed no acute cardiopulmonary process. CT of the head revealed no acute intracranial process with chronic findings. She also had a CTA of the neck which revealed no significant arterial abnormality. CTA of the head revealed no acute process. Patient was also seen in the emergency room last week and treated for UTI with Ceftin and discharged. Since then she has continued to have weakness episodes with difficuty in speaking and inability to walk and move concerning to her daughters.Thus they brought her to [facility] for evaluation with a repeated episode this AM. Urine cultures are still pending At the time of this exam patient is coherent and answers questions appropriately. Some answers are slow. Speech is clear. She denies any chest pain and shortness of breath. Hospital Course Hospital Course Hospital Course: The patient was admitted and started on Levaquin for UTI. Her blood pressure and heart rate as well as her rhythm were monitored. Most of her home medications were reordered. She was given a dose of Vistaril. By 02/13/2023, she was feeling better. She was eating well and had been able to get up to use the bathroom without any events. Her blood pressure had improved. PT and OT evaluations were ordered. By 02/14/2023, she felt well other than some chest pain that she had had when she first woke up in the morning. An EKG and enzymes were both ordered. Physical therapy had recommended home health upon discharge. Her urine culture showed mixed raissa. Her troponin came back negative and she was stable to be discharged home on Levaquin and will follow-up in the office with Dr. Mims in a week. Exam Data for Last 24 hours Vital signs and Labs for Last 24 Hours: Temp Pulse Resp BP Pulse Ox O2 Del Method 98.2 F 90 16 158/75 H 99 Room Air 02/14/23 15:19 02/14/23 16:00 02/14/23 15:19 02/14/23 15:19 02/14/23 15:19 02/14/23 17:00 Narrative: Constitutional Constitutional: no acute distress *Routine HEENT Exam Head: Present normocephalic and atraumatic Eye: Present EOMI, PERRL and normal accommodation; Absent conjunctival icterus, scleral injection, conjunctivae pink, periorbital swelling or nystagmus ENT: Present mucous membranes moist and oropharynx clear *Routine Neck Exam Neck: Present supple and full ROM; Absent carotid bruit, lymphadenopathy or thyromegaly *Routine Respiratory Exam Respiratory: Present CTA bilaterally (A&P) *Routine Cardiovascular Exam Cardiovascular: Present RRR (SR) *Routine Abdominal Exam Abdominal: Present soft and normoactive bowel sounds; Absent tenderness or distended *Routine Rectal Exam Rectal:: deferred *Routine Genitalia Exam Genitalia:: deferred *Routine Extremities Exam Extremities: Present full ROM and pulses intact; Absent edema or calf tenderness *Routine Neurological Exam Neurological: Present alert, oriented X3 and normal speech; Absent nystagmus, facial asymmetry or tremors DS: Diagnosis Discharge Diagnosis (1) Hypertension: Status: Chronic Code(s): I10 - Essential
== END 2023-02-14 18:14 | disposition home health service (06) ==
LOC: ER 13:16 → 2ND 14:11
PROVIDERS: Physician Assistant; Admitting Provider Family Medicine; Emergency Provider Emergency Medicine; PCP Family Medicine; Visit Provider Family Medicine
DX: I12.9 Hypertensive chronic kidney disease with stage 1 through stage 4 chronic kidney disease, or unspecified chronic kidney disease (principal); R40.4 Transient alteration of awareness; N39.0 Urinary tract infection, site not specified; E78.2 Mixed hyperlipidemia; I25.10 Atherosclerotic heart disease of native coronary artery without angina pectoris; R00.2 Palpitations; F41.9 Anxiety disorder, unspecified; I48.0 Paroxysmal atrial fibrillation; R53.1 Weakness; Z79.01 Long term (current) use of anticoagulants; Z79.899 Other long term (current) drug therapy; I50.9 Heart failure, unspecified; R29.6 Repeated falls; N18.9 Chronic kidney disease, unspecified
CPT/HCPCS: 36415; 70450; 71045; 80053; 81001; 82550; 82553; 82803; 83735; 84100; 84484; 85025; 87086; 93005; 97116; 97162; 97166; 97530; 99285; G0378; J1956